=== PATIENT | female | born 1950 | race Caucasian/White ===

== ENCOUNTER → 2017-02-09 | Outpatient (CLI) | payer MEDICARE, OTHER ==
--- NOTE | 2017-02-09 15:32 | BD ---
EXAMINATION TYPE: MG DEXA axial skeleton. DATE OF EXAM: 02/09/2017 3:14 PM COMPARISON: Previous study dated 01/04/2013 CLINICAL HISTORY: SCREENING FOR OSTEOPOROSIS Height: 5'3 Weight: 168 FRAX RISK QUESTIONS: Alcohol (3 or more units per day): no Family History (Parent hip fracture): ? Glucocorticoids (More than 3mos): no (Ex: prednisone, prednisolone, methylprednisolone, dexamethasone, and hydrocortisone). History of Fracture in Adulthood: no Secondary Osteoporosis: 1. Type 1 Diabetes: no 2. Hyperthyroidism: no 3. Menopause before 45: ? 4. Malnutrition: no 5. Chronic liver disease: no Rheumatoid Arthritis: no Current Tobacco Use: no RISK FACTORS HISTORY OF: Active: Postmenopausal woman: Frequent falls: Poor Health: MEDICATIONS: Additional Medications: vitamin D, , mental health medication Additional History: osteoporosis, director case does not know pt history, hx mental illness EXAM MEASUREMENTS: Bone mineral densitometry was performed using the [employer] System. Bone mineral density as measured about the Lumbar spine is: ----- L1-L4(G/cm2): 1.455 T Score Values are as follows: ----- L2: 1.4 ----- L3: 1.5 ----- L4: 3.4 ----- L1-L4: 2.3 Bone mineral density has: Increased 5.3% since study of: 01/04/2013 Bone mineral density about the R hip (g/cm2): 0.797 Bone mineral density about the L hip (g/cm2): 0.831 T Score values are as follows: -----R Neck: -1.7 -----L Neck: -1.5 -----R Intertrochanter: -1.4 -----L Intertrochanter: -1.4 Bone mineral density has: Decreased -0.8% since study of: 01/04/2013 IMPRESSION: Osteopenia (T Score between -2.5 and -1 as noted by T score values: Ezra Hips There is slightly increased risk of fracture and the patient may be considered for treatment. Re-Screen 1-2 years. NOTE: T-SCORE=SD OF THE YOUNG ADULT MEAN.
--- NOTE | 2017-02-10 09:47 | MM ---
Reason for exam: screening (asymptomatic). Last mammogram was performed 4 years and 1 month ago. History: Patient is nulliparous. Family history of breast cancer in sister. Benign excisional biopsy of the left breast. Physical Findings: A clinical breast exam by your physician is recommended on an annual basis and results should be correlated with mammographic findings. MG Screening Mammo w CAD Bilateral CC and MLO view(s) were taken. Prior study comparison: January 04, 2013, bilateral digital screening mammo w/CAD. August 29, 2011, [facility] DIGITAL RIGHT MAMMOGRAM w/CAD. The breast tissue is heterogeneously dense. This may lower the sensitivity of mammography. Finding: There are typically benign calcifications in both breasts. No significant changes in finding since January 04, 2013 and August 29, 2011. ASSESSMENT: Benign, BI-RAD 2 RECOMMENDATION: Routine screening mammogram of both breasts in 1 year.
== END | disposition home or self-care (01) ==
LOC: RADMAMWWP 14:21
PROVIDERS: ATTEND Family Medicine
DX: Z12.31 Encounter for screening mammogram for malignant neoplasm of breast (principal); Z13.820 Encounter for screening for osteoporosis; M85.88 Other specified disorders of bone density and structure, other site
CPT/HCPCS: 77080; G0202

== ENCOUNTER 2018-06-17 11:44 | Emergency (ER) | payer MEDICARE, OTHER ==
[2018-06-17 11:51] VITALS: PULSE 67; RESP 18
[2018-06-17] MEDS ORDERED: LIDOCAINE/EPINEPHR/TETRACAINE 5 ML BOTTLE TOPICAL ONE (12:10)
[2018-06-17] MEDS ORDERED: DIPH,PERTUS(ACELL)TETVAC-LF 0.5 ML VIAL IM ONE (12:10)
--- NOTE | 2018-06-17 12:11 | ED ---
Fall HPI - General Chief Complaint: Fall Stated Complaint: Fall,Facial injury Time Seen by Provider: 06/17/18 12:06 Source: patient, EMS Mode of arrival: EMS Limitations: no limitations - History of Present Illness Initial Comments: 67-year-old female presents emergency Department with chief complaint of trip and fall. Patient tripped and fell forward struck her face. Patient has a super facial laceration to her lip. She is unsure when her last tetanus was. She denies headache, loss consciousness, neck pain, extremity injury. She states her only complaint is a laceration. Patient denies any dental injury. - Related Data Home Medications Medication Instructions Recorded Confirmed Calcium Carbonate [Calcium] 1,200 mg PO DAILY 10/06/17 06/17/18 Cholecalciferol [Vitamin D3] 5,000 unit PO DAILY 10/06/17 06/17/18 Escitalopram [Lexapro] 5 mg PO DAILY 10/06/17 06/17/18 OLANZapine [ZyPREXA] 10 mg PO HS 10/06/17 06/17/18 Atorvastatin Calcium [Lipitor] 10 mg PO DAILY 06/17/18 06/17/18 Allergies Allergy/AdvReac Type Severity Reaction Status Date / Time No Known Allergies Allergy Verified 06/17/18 13:04 Review of Systems ROS Statement: Those systems with pertinent positive or pertinent negative responses have been documented in the HPI. ROS Other: All systems not noted in ROS Statement are negative. Past Medical History Past Medical History: Unable to Obtain Additional Past Medical History / Comment(s): [facility] History of Any Multi-Drug Resistant Organisms: None Reported Past Surgical History: Unable to Obtain Past Psychological History: No Psychological Hx Reported Smoking Status: Never smoker Past Alcohol Use History: None Reported Past Drug Use History: None Reported General Exam Limitations: no limitations General appearance: alert, in no apparent distress Head exam: Present: atraumatic, normocephalic, normal inspection Eye exam: Present: normal appearance, PERRL, EOMI. Absent: scleral icterus, conjunctival injection, periorbital swelling ENT exam: Present: mucous membranes moist, TM's normal bilaterally, normal external ear exam. Absent: normal oropharynx (Superficial laceration on the upper lip) Neck exam: Present: normal inspection, full ROM. Absent: tenderness, meningismus, lymphadenopathy Respiratory exam: Present: normal lung sounds bilaterally. Absent: respiratory distress, wheezes, rales, rhonchi, stridor Cardiovascular Exam: Present: regular rate, normal rhythm, normal heart sounds. Absent: systolic murmur, diastolic murmur, rubs, gallop, clicks Neurological exam: Present: alert, oriented X3, CN II-XII intact, reflexes normal. Absent: motor sensory deficit Skin exam: Present: warm, dry, intact, normal color. Absent: rash Course Vital Signs 06/17/18 11:48 Temperature 97.9 F Pulse Rate 67 Respiratory 18 Rate Blood Pressure 135/70 O2 Sat by Pulse 97 Oximetry Medical Decision Making - Medical Decision Making 67-year-old female presented for a trip and fall. Patient has superficial laceration does not need to be closer is no active bleeding she has CT of her head and neck which are negative for acute findings. Patient's tetanus is updated return parameters were discussed. Disposition Clinical Impression: Fall, Superficial laceration of face Disposition: HOME SELF-CARE Condition: Stable Instructions: Laceration (ED) Additional Instructions: Please return to the Emergency Department if symptoms worsen or any other concerns. Is patient prescribed a controlled substance at d/c from ED?: No Referrals: None,Stated [Primary Care Provider] - 1-2 days Time of Disposition: 13:38
--- NOTE | 2018-06-17 13:25 | CT ---
EXAMINATION TYPE: CT brain jr brower DATE OF EXAM: 06/17/2018 COMPARISON: None HISTORY: 67-year-old female with pain after Fall, cut under nose CT DLP: 1608 mGycm Automated exposure control for dose reduction was used. Technique: Examination of the head was done in axial plane without intravenous contrast. Coronal and sagittal reconstructions performed. CT of the cervical spine was obtained in axial plane without intravenous injection of contrast mater ial. Coronal and sagittal reformatted images were obtained from the axial views for evaluation of f ractures, spinal alignment and canal. FINDINGS: Head: There is no evidence of acute intracranial hemorrhage, acute ischemic changes, mass, mass-effect, or extra-axial fluid collection. There is no effacement of cerebral sulci or basal subarachnoid cister ns. There is no hydrocephalus. There is no midline shift. Lobo-white matter distinction is preserv ed. Either 3.6 cm wide arachnoid cyst posterior cranial fossa or megacisterna magna. Paranasal sinuses and mastoid air cells well pneumatized. No calvarial fracture. Cervical spine: No craniocervical junction anomaly, predental space widening, or prevertebral soft tissue swelling. No acute fracture of the cervical spine. Alignment is maintained. Moderate distention plate degenerative changes especially from C4 through C7 levels Multilevel facet and uncovertebral joint arthropathy is present. Moderate right-sided neural foramina l stenosis at C4-C5 and moderate on the left at C6-C7. Motion artifact affecting the soft tissues of the neck. Sagittal and coronal reformatted images confirm above findings. COMBINED IMPRESSION: 1. No acute intracranial abnormality seen. 2. No acute fracture or malalignment of the cervical spine. Moderate multilevel spondylotic change.
[2018-06-17 14:39] VITALS: BP 162/75; TEMP 98.2
== END 2018-06-17 14:39 | disposition home or self-care (01) ==
LOC: EC 11:44
DX: S01.511A Laceration without foreign body of lip, initial encounter (principal); Z79.899 Other long term (current) drug therapy; Z23 Encounter for immunization; W01.0XXA Fall on same level from slipping, tripping and stumbling without subsequent striking against object, initial encounter; Y92.009 Unspecified place in unspecified non-institutional (private) residence as the place of occurrence of the external cause
CPT/HCPCS: 70450; 72125; 90471; 90715; 99284

== ENCOUNTER 2022-03-31 09:56 | Inpatient (IN) | payer MEDICARE, OTHER ==
--- NOTE | 2022-03-31 10:56 | ED ---
Fall HPI - General Source: family, EMS, RN notes reviewed Mode of arrival: EMS - History of Present Illness MD Complaint: fall When Fall Occurred: unsure Fall Witnessed: no <Cammie Jaime - Last Filed: 03/31/22 18:17> <Philip Gomez - Last Filed: 03/31/22 20:26> - General Chief Complaint: Fall Stated Complaint: Fall Time Seen by Provider: 03/31/22 10:28 - History of Present Illness Initial Comments: This is a 71-year-old female who presents to the emergency department for a fall. Her daughter had not heard from her for 2-3 days, and requested the director social welfare to a wellness check. The director social welfare and her supervisor billposting went to the patient's apartment, and she was found lying on her side. She is unsure how she had gotten there or if she had fallen. She was breathing and conscious when she was found on the floor. It is unclear if she had any loss of consciousness immediately after the event. Patient not currently complaining of any pain, however she is noted be a poor communicator. Patient was noted to be covered in urine and feces upon arrival. (Cammie Jaime) - Related Data Home Medications Medication Instructions Recorded Confirmed Calcium Carbonate [Calcium] 600 mg PO DAILY 10/06/17 03/31/22 Escitalopram [Lexapro] 5 mg PO HS 10/06/17 03/31/22 Atorvastatin Calcium [Lipitor] 10 mg PO DAILY 06/17/18 03/31/22 Cholecalciferol [Vitamin D3 (125 125 mcg PO DAILY 03/31/22 03/31/22 Mcg = 5000 Iu)] Docusate [Colace] 100 mg PO DAILY 03/31/22 03/31/22 OLANZapine 20 mg PO HS 03/31/22 03/31/22 Polyethylene Glycol 3350 [Miralax] 17 gm PO DAILY PRN 03/31/22 03/31/22 Allergies Allergy/AdvReac Type Severity Reaction Status Date / Time No Known Allergies Allergy Verified 03/31/22 13:42 Review of Systems ROS Other: All systems not noted in ROS Statement are negative. Limitations: ROS unobtainable due to patients medical condition <Cammie Jaime - Last Filed: 03/31/22 18:17> ROS Other: All systems not noted in ROS Statement are negative. <Philip Gomez - Last Filed: 03/31/22 20:26> ROS Statement: Those systems with pertinent positive or pertinent negative responses have been documented in the HPI. Past Medical History Past Medical History: Unable to Obtain Additional Past Medical History / Comment(s): [facility] History of Any Multi-Drug Resistant Organisms: None Reported Past Surgical History: Unable to Obtain Past Psychological History: No Psychological Hx Reported Smoking Status: Never smoker Past Alcohol Use History: None Reported Past Drug Use History: None Reported - Past Family History Mother Family Medical History: No Reported History Additional Family Medical History / Comment(s): Mother was healthy Father Additional Family Medical History / Comment(s): Heart issues. <Cammie Jaime - Last Filed: 03/31/22 18:17> General Exam Limitations: no limitations General appearance: alert Respiratory exam: Present: normal lung sounds bilaterally. Absent: respiratory distress, wheezes, rales, rhonchi, stridor Cardiovascular Exam: Present: regular rate, normal rhythm, normal heart sounds. Absent: systolic murmur, diastolic murmur, rubs, gallop, clicks GI/Abdominal exam: Present: soft, normal bowel sounds. Absent: distended, tenderness, guarding, rebound, rigid External exam: Present: other (damp erythematous rash with a foul odor in the intertriginous folds consistent with a tinea cruris. ) Neurological exam: Present: alert Skin exam: Present: other (Ecchymosis to the lateral aspect of the left thigh, the right shoulder, and the forehead. Abrasion to the right rastafari and stool in the nose and mouth.) <Cammie Jaime - Last Filed: 03/31/22 18:17> Course Vital Signs 03/31/22 03/31/22 03/31/22 10:22 10:26 19:03 Temperature 98.0 F 98.4 F Pulse Rate 94 Pulse Rate [ 94 83 Payroll Examiner ] Respiratory 16 20 Rate Blood Pressure 108/71 Blood Pressure 113/59 [Right Arm] O2 Sat by Pulse 98 98 Oximetry 03/31/22 20:00 Temperature 98.2 F Pulse Rate Pulse Rate [ 84 Payroll Examiner ] Respiratory 20 Rate Blood Pressure Blood Pressure 117/60 [Right Arm] O2 Sat by Pulse 99 Oximetry Medical Decision Making - Lab Data Result diagrams: 03/31/22 11:13 03/31/22 11:13 - Radiology Data Radiology results: report reviewed, image reviewed <Cammie Jaime - Last Filed: 03/31/22 18:17> - Lab Data Result diagrams: 03/31/22 11:13 03/31/22 11:13 <Philip Gomez - Last Filed: 03/31/22 20:26> - Medical Decision Making This is a 71-year-old female who presents to the emergency department after sustaining a fall. It is unclear why exactly the patient fell and why she could not get back up. Will obtain imaging and lab work for further evaluation. Tinea cruris present upon examination, this is likely due to the patient urinating on herself while she was down for a prolonged period of time. With the help of the patient's nurse, the patient was thoroughly wiped down, examined, and cleaned. Antifungal cream was applied to the tinea cruris. Chest x-ray does reveal possible pneumonia, patient started on Rocephin and Azithromycin. Elevated liver enzymes also noted, ultrasound of the right upper quadrant ordered. This was a very suboptimal study, but did suggest a hepatocellular disease/fatty infiltration of the liver. Additionally, troponin was elevated at 3.820. I discussed this finding with Dr. Gomez, who believes that this is a type II elevation. I spoke with cardiology, who requested the patient be started on heparin. Additionally, the patient's CK returned at 22,825 indicating rhabdomyolysis. Patient started on fluids. Patient will be admitted for multiple issues, including the pneumonia, rhabdomyolysis, and elevated troponin. This case was discussed in detail with the attending ED physician. Presentation, findings, and treatment plan discussed in detail as well. (Cammie Jaime) - Lab Data Lab Results 03/31/22 03/31/22 03/31/22 Range/Units 11:13 11:13 11:13 WBC 14.3 H (3.8-10.6) k/uL RBC 5.06 (3.80-5.40) m/uL Hgb 14.4 (11.4-16.0) gm/dL Hct 44.8 (34.0-46.0) % MCV 88.4 (80.0-100.0) fL MCH 28.4 (25.0-35.0) pg MCHC 32.1 (31.0-37.0) g/dL RDW 14.1 (11.5-15.5) % Plt Count 224 (150-450) k/uL MPV 8.0 Neutrophils % 84 % Lymphocytes % 9 % Monocytes % 5 % Eosinophils % 1 % Basophils % 0 % Neutrophils # 12.1 H (1.3-7.7) k/uL Lymphocytes # 1.2 (1.0-4.8) k/uL Monocytes # 0.8 (0-1.0) k/uL Eosinophils # 0.1 (0-0.7) k/uL Basophils # 0.1 (0-0.2) k/uL Sodium 146 H (137-145) mmol/L Potassium 3.9 (3.5-5.1) mmol/L Chloride 113 H (98-107) mmol/L Carbon Dioxide 26 (22-30) mmol/L Anion Gap 7 mmol/L BUN 29 H (7-17) mg/dL Creatinine 0.99 (0.52-1.04) mg/dL Est GFR (CKD-EPI)AfAm 66 (>60 ml/min/1.73 sqM) Est GFR (CKD-EPI)NonAf 57 (>60 ml/min/1.73 sqM) Glucose 110 H (74-99) mg/dL Calcium 9.4 (8.4-10.2) mg/dL Total Bilirubin 1.0 (0.2-1.3) mg/dL AST 644 H (14-36) U/L ALT 185 H (4-34) U/L Alkaline Phosphatase 108 (38-126) U/L Creatine Kinase (30-135) U/L Troponin I (0.000-0.034) ng/mL Total Protein 7.1 (6.3-8.2) g/dL Albumin 4.0 (3.5-5.0) g/dL Urine Color Red Urine Appearance Cloudy H (Clear) Urine pH 6.0 (5.0-8.0) Ur Specific [place] 1.029 (1.001-1.035) Urine Protein 2+ H (Negative) Urine Glucose (UA) Trace H (Negative) Urine Ketones 1+ H (Negative) Urine Blood Large H (Negative) Urine Nitrite Negative (Negative) Urine Bilirubin Negative (Negative) Urine Urobilinogen <2.0 (<2.0) mg/dL Ur Leukocyte Esterase Negative (Negative) Urine RBC 1 (0-5) /hpf Urine WBC 4 (0-5) /hpf Ur Squamous Epith Cells 1 (0-4) /hpf Urine Bacteria Rare H (None) /hpf Urine Mucus Many H (None) /hpf Coronavirus (PCR) (Not Detectd) Influenza Type A RNA (Not Detectd) Influenza Type B (PCR) (Not Detectd) 03/31/22 03/31/22 03/31/22 Range/Units 11:13 11:13 13:25 WBC (3.8-10.6) k/uL RBC (3.80-5.40) m/uL Hgb (11.4-16.0) gm/dL Hct (34.0-46.0) % MCV (80.0-100.0) fL MCH (25.0-35.0) pg MCHC (31.0-37.0) g/dL RDW (11.5-15.5) % Plt Count (150-450) k/uL MPV Neutrophils % % Lymphocytes % % Monocytes % % Eosinophils % % Basophils % % Neutrophils # (1.3-7.7) k/uL Lymphocytes # (1.0-4.8) k/uL Monocytes # (0-1.0) k/uL Eosinophils # (0-0.7) k/uL Basophils # (0-0.2) k/uL Sodium (137-145) mmol/L Potassium (3.5-5.1) mmol/L Chloride (98-107) mmol/L Carbon Dioxide (22-30) mmol/L Anion Gap mmol/L BUN (7-17) mg/dL Creatinine (0.52-1.04) mg/dL Est GFR (CKD-EPI)AfAm (>60 ml/min/1.73 sqM) Est GFR (CKD-EPI)NonAf (>60 ml/min/1.73 sqM) Glucose (74-99) mg/dL Calcium (8.4-10.2) mg/dL Total Bilirubin (0.2-1.3) mg/dL AST (14-36) U/L ALT (4-34) U/L Alkaline Phosphatase (38-126) U/L Creatine Kinase 03880 H* (30-135) U/L Troponin I 3.820 H* (0.000-0.034) ng/mL Total Protein (6.3-8.2) g/dL Albumin (3.5-5.0) g/dL Urine Color Urine Appearance (Clear) Urine pH (5.0-8.0) Ur Specific [place] (1.001-1.035) Urine Protein (Negative) Urine Glucose (UA) (Negative) Urine Ketones (Negative) Urine Blood (Negative) Urine Nitrite (Negative) Urine Bilirubin (Negative) Urine Urobilinogen (<2.0) mg/dL Ur Leukocyte Esterase (Negative) Urine RBC (0-5) /hpf Urine WBC (0-5) /hpf Ur Squamous Epith Cells (0-4) /hpf Urine Bacteria (None) /hpf Urine Mucus (None) /hpf Coronavirus (PCR) (Not Detectd) Influenza Type A RNA Not Detected (Not Detectd) Influenza Type B (PCR) Not Detected (Not Detectd) 03/31/22 Range/Units 13:25 WBC (3.8-10.6) k/uL RBC (3.80-5.40) m/uL Hgb (11.4-16.0) gm/dL Hct (34.0-46.0) % MCV (80.0-100.0) fL MCH (25.0-35.0) pg MCHC (31.0-37.0) g/dL RDW (11.5-15.5) % Plt Count (150-450) k/uL MPV Neutrophils % % Lymphocytes % % Monocytes % % Eosinophils % % Basophils % % Neutrophils # (1.3-7.7) k/uL Lymphocytes # (1.0-4.8) k/uL Monocytes # (0-1.0) k/uL Eosinophils # (0-0.7) k/uL Basophils # (0-0.2) k/uL Sodium (137-145) mmol/L Potassium (3.5-5.1) mmol/L Chloride (98-107) mmol/L Carbon Dioxide (22-30) mmol/L Anion Gap mmol/L BUN (7-17) mg/dL Creatinine (0.52-1.04) mg/dL Est GFR (CKD-EPI)AfAm (>60 ml/min/1.73 sqM) Est GFR (CKD-EPI)NonAf (>60 ml/min/1.73 sqM) Glucose (74-99) mg/dL Calcium (8.4-10.2) mg/dL Total Bilirubin (0.2-1.3) mg/dL AST (14-36) U/L ALT (4-34) U/L Alkaline Phosphatase (38-126) U/L Creatine Kinase (30-135) U/L Troponin I (0.000-0.034) ng/mL Total Protein (6.3-8.2) g/dL Albumin (3.5-5.0) g/dL Urine Color Urine Appearance (Clear) Urine pH (5.0-8.0) Ur Specific [place] (1.001-1.035) Urine Protein (Negative) Urine Glucose (UA) (Negative) Urine Ketones (Negative) Urine Blood (Negative) Urine Nitrite (Negative) Urine Bilirubin (Negative) Urine Urobilinogen (<2.0) mg/dL Ur Leukocyte Esterase (Negative) Urine RBC (0-5) /hpf Urine WBC (0-5) /hpf Ur Squamous Epith Cells (0-4) /hpf Urine Bacteria (None) /hpf Urine Mucus (None) /hpf Coronavirus (PCR) Not Detected (Not Detectd) Influenza Type A RNA (Not Detectd) Influenza Type B (PCR) (Not Detectd) - EKG Data EKG Comments: Normal sinus rhythm. Left axis deviation. Ventricular rate 86 bpm, ND interval 137 ms, QRS duration 105 ms, QTC 448 ms. (Cammie Jaime) Disposition <Cammie Jaime - Last Filed: 03/31/22 18:17> <Philip Gomez - Last Filed: 03/31/22 20:26> Clinical Impression: Pneumonia, Elevated troponin, Elevated liver enzymes, Rhabdomyolysis Disposition: ADMITTED IP TO THIS HOSP
[2022-03-31 11:32] LABS: Basophils # (A) 0.1 k/uL (0-0.2); Basophils % (A) 0 %; Eosinophils # (A) 0.1 k/uL (0-0.7); Eosinophils % (A) 1 %; HCT 44.8 % (34.0-46.0); HGB 14.4 gm/dL (11.4-16.0); Lymphocytes # (A) 1.2 k/uL (1.0-4.8); Lymphocytes % (A) 9 %; MCH 28.4 pg (25.0-35.0); MCHC 32.1 g/dL (31.0-37.0); MCV 88.4 fL (80.0-100.0); Monocytes # (A) 0.8 k/uL (0-1.0); Monocytes % (A) 5 %; Neutrophils # (A) 12.1 k/uL (1.3-7.7); Neutrophils % (A) 84 %; Platelet Count 224 k/uL (150-450); RBC 5.06 m/uL (3.80-5.40); RDW 14.1 % (11.5-15.5); WBC 14.3 k/uL (3.8-10.6)
[2022-03-31 11:49] LABS: Calcium 9.4 mg/dL (8.4-10.2); Potassium 3.9 mmol/L (3.5-5.1); Total Protein 7.1 g/dL (6.3-8.2)
--- NOTE | 2022-03-31 12:08 | XR ---
EXAMINATION TYPE: XR chest 2V DATE OF EXAM: 03/31/2022 COMPARISON: NONE TECHNIQUE: PA and lateral views submitted. HISTORY: Pain FINDINGS: There is left-sided consolidation. Heart size prominent. Eventration right hemidiaphragm. Chronic juana earing right clavicular fracture with bilateral arthropathy of the shoulders. No pneumothorax. Degene rative change of the spine. IMPRESSION: 1. Left perihilar and lower lobe subsegmental atelectasis or infiltrate.
--- NOTE | 2022-03-31 12:10 | XR ---
EXAMINATION TYPE: XR Hip Bilateral and AP pelvis DATE OF EXAM: 03/31/2022 COMPARISON: NONE HISTORY: Pain TECHNIQUE: A single AP view of the pelvis is obtained. Two views of the right hip are obtained. FINDINGS: There is no acute fracture/dislocation evident in the pelvis. Joint space is fairly well p reserved. Retained fecal debris throughout the colon. No evidence of acute fracture of the hips. IMPRESSION: 1. No definite acute fracture.
--- NOTE | 2022-03-31 12:14 | XR ---
EXAMINATION TYPE: XR shoulder complete BILAT DATE OF EXAM: 03/31/2022 COMPARISON: NONE HISTORY: 71-year-old female pain after fall TECHNIQUE: 3 views each side FINDINGS: Moderate degenerative change right AC joint and mild at the left AC joint. Mild to moderate degenerative change left glenohumeral joint and mild at the right glenohumeral joint . There is bony irregularity at both greater tuberosities compatible with chronic rotator cuff tendinop athy. Somewhat narrowed appearance to the subacromial space on the AP internal rotation view. Unable to exclude underlying rotator cuff tear on the right. Otherwise, no fracture, subluxation, dislocation. Possible old fracture deformity right clavicular shaft. Clinically correlate. There is some patchy opacity seen throughout the visualized left hemithorax. IMPRESSION: 1. 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 2. Moderate right and mild left AC joint OA. 3. Bony irregularity suggesting bilateral chronic rotator cuff tendinopathy. However, there is a some what narrowed subacromial space on the right. Unable to exclude underlying rotator cuff tear here. 4. Possible old fracture deformity right clavicular shaft. Clinically correlate. 5. Patchy opacity throughout the left hemithorax. Correlate to exclude underlying airspace disease in cluding the possibility of pneumonia. Follow-up recommended to ensure clearance.
--- NOTE | 2022-03-31 12:37 | CT ---
EXAMINATION TYPE: CT brain cspine wo con DATE OF EXAM: 03/31/2022 COMPARISON: Prior CT trauma June 17, 2018. HISTORY: Fall. Injury with headache and neck pain CT DLP: 1510.4 mGycm. Automated Exposure Control for Dose Reduction was Utilized. TECHNIQUE: CT scan of the head and cervical spine are performed without contrast. FINDINGS: There is no acute intracranial hemorrhage, mass effect, or midline shift identified. The ventricles and sulci are within normal limits in size for patient's age. Persistent moderate areas o f low attenuation throughout the deep and periventricular white matter. Lesions are nonspecific in ap pearance and distribution favor product of chronic small vessel ischemic change inpatient of this age . The calvarium is intact. The globes are intact and the visualized sinuses are clear. Prominent CSF central inferior posterior fossa could reflect arachnoid cyst or magna cisterna magna axial image 10 is unchanged from prior. Cervical spine is visualized in its entirety from C1 through upper thoracic levels and demonstrates s table and satisfactory alignment without evidence of acute fracture or dislocation. Prevertebral sof t tissue appears within normal limits. The C1-C2 articulation is within normal limits. Vertebral bod y heights are maintained. Moderate multilevel disc space narrowing redemonstrated. Moderate to severe anterior spurring in the mid to lower cervical spine is redemonstrated. Posterior spur disc complexe s efface the anterior thecal sac at C4-C5 through C6-C7 levels similar to prior. Axial images show so me multilevel marginal spurring contributing to some multilevel neural foraminal narrowing. Thyroid g land is within normal limits in size. There are groundglass opacities and organizing consolidations a nd visualized portion of the left upper lobe new from prior. 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 IMPRESSION: 1. There is no acute fracture or dislocation evident in the cervical spine. 2. No acute intracranial hemorrhage or midline shift is seen. 3. New left upper lobe groundglass opacity and organizing consolidations could reflect infectious mario ology, correlate clinically. Alveolar hemorrhage would be in the differential in patient with trauma. Findings correlate with x-ray performed earlier today.
[2022-03-31] MEDS ORDERED: SODIUM CHLORIDE 0.9% 1,000 ML IV ONE ×2 (12:39→14:52)
[2022-03-31] MEDS ORDERED: AZITHROMYCIN 500 MG in SODIUM CHLORIDE 0.9% 250 ML IVPB STA (12:42)
[2022-03-31] MEDS ORDERED: NALOXONE 0.4 MG/ML 1 ML VIAL IV PRN (13:14)
[2022-03-31] MEDS ORDERED: HYDROcodone/APAP 5-325MG 1 EACH TAB PO PRN (13:14)
[2022-03-31] MEDS ORDERED: oxyCODONE-APAP 5-325MG 1 EACH TAB PO PRN (13:14)
[2022-03-31] MEDS ORDERED: METOCLOPRAMIDE 5 MG/ML 2 ML VIAL IVP PRN (13:18)
--- NOTE | 2022-03-31 13:31 | US ---
EXAMINATION TYPE: US gallbladder DATE OF EXAM: 03/31/2022 COMPARISON: NONE CLINICAL HISTORY: elevated liver enzymes. Elevated liver enzymes. EXAM MEASUREMENTS: Liver Length: 14.4 cm CBD: Obscured by gas. Right Kidney: 10.7 x 4.9 x 4.5 cm Very difficult and limited exam due to gas. Pancreas: Limited. Liver: Limited. Appears coarse in echotexture. Gallbladder: Obscured by gas, not seen. Evidence for sonographic Amado's sign: No CBD: Obscured. Right Kidney: Limited. No abnormalities seen at this time. Visualized pancreas slightly heterogeneous in appearance without mass or ductal dilatation. Portions are obscured by overlying bowel gas on images obtained. Visualized liver is heterogeneously hyperecho ic. Evaluation for focal masses suboptimal due to the heterogeneity. No adjacent ascites. No right-si ded hydronephrosis. Gallbladder not distinctly identified at the temo hepatis. Suboptimal visualizat ion of common bile duct also noted. IMPRESSION: Markedly suboptimal study. Suspect underlying hepatocellular disease and/or diffuse fatty infiltration. Consider further workup with CT or MRI of the abdomen to better evaluate.
[2022-03-31] MEDS ORDERED: ASPIRIN 325 MG TAB PO STA (13:51)
[2022-03-31] MEDS ORDERED: HEPARIN SODIUM 1,000 UN/ML (10ML VL) IV PRN (14:52)
[2022-03-31] MEDS ORDERED: HEPARIN SODIUM 1,000 UN/ML (10ML VL) IV ONE (14:52)
[2022-03-31] MEDS: HEPARIN SOD,PORK IN 0.45% NACL 25,000 UNIT in 0.45% NACL 1 250ML.BAG IV SCH (15:35)
[2022-03-31] MEDS ORDERED: polyethylene glycoL 3350 17 GM POWD.PACK PO PRN (15:44)
[2022-03-31 15:49] LABS: Prothrombin Time 10.5 sec (9.0-12.0)
--- NOTE | 2022-03-31 15:56 | P.HPIM ---
History of Present Illness H&P Date: 03/31/22 Chief Complaint: Found down 71-year-old woman with medical history of mood disorder, hyperlipidemia presented after being found down. Patient was corresponding to her family's phone calls, and therefore had a wellness check in which she was found down. Last contact with her was 48-72 hours ago, so estimation is that she's been down for at least 2-3 days. Patient does not provide meaningful history, therefore, history is taken from ER provider signout as well as chart review. Patient complains of some pain on her left side, multiple areas of bruising. Otherwise denies fevers, chills, nausea, vomiting, chest pain, palpitations, syncope, presyncope, cough, dyspnea, abdominal pain, constipation, diarrhea, dysuria, dyschezia, numbness/weakness of extremities. In the emergency room, patient is afebrile, 108/71, heart rate 94, 98% on room air. CBC is markable for leukocytosis to 14.3. Chemistries are remarkable for sodium of 146, chloride 113, BUN of 29. LFTs are remarkable for elevated AST/ALT of 644/185. Creatinine kinase is 22,825. Initial troponin was 3.8. Covid was negative. Influenza A/B were negative. Patient's chest x-ray appears to have a left perihilar and lower lobe subsegmental atelectasis or infiltrate. Patient's hip and pelvis x-rays are negative for fracture. Patient's shoulder x-ray shows osteoarthritis as well as chronic rotator cuff tendinopathy, but nothing acute. CT of the C-spine shows no acute fracture or dislocation, no acute intracranial hemorrhage. Patient's gallbladder ultrasound was a markedly suboptimal study but shows possible evidence of underlying hepatocellular disease. EKG demonstrates normal sinus rhythm with left axis deviation and S1 Q3 T3 pattern with no evidence of ischemia. All Systems reviewed and pertinent positives and negatives noted in HPI, all other symptoms are negative Gen: awake, alert HEENT: normocephalic, atraumatic, good hearing acuity, moist mucous membranes Resp: good air exchange, breathing comfortably with no accessory muscle use CVS: good distal perfusion x 4, regular rate and rhythm without murmurs GI: soft, NTTP, ND : no SPT, no CVAT, grayson catheter is present MSK: no pitting edema, no clubbing, multiple areas of bruising Neuro: non-focal, moving all extremities Psych: cooperative, euthymic mood Labs and imaging as above Assessment/plan: Rhabdomyolysis Elevated liver enzymes -Admit inpatient, telemetry -Daily CK -IV fluids -PT consult -Repeat hepatic function panel in the morning Aspiration pneumonia -Unasyn -Sputum culture Elevated troponin -Patient was started on a heparin drip in the emergency room, however, I suspect that troponin elevation is related to rhabdomyolysis rather than acute IL -Echocardiogram -Cardiology consult Mood disorder Hyperlipidemia -Home medications reviewed and reconciled Patient is DO NOT RESUSCITATE/DO NOT INTUBATE DVT prophylaxis covered with therapeutic heparin Past Medical History Past Medical History: Unable to Obtain Additional Past Medical History / Comment(s): [facility] History of Any Multi-Drug Resistant Organisms: None Reported Past Surgical History: Unable to Obtain Past Psychological History: No Psychological Hx Reported Smoking Status: Never smoker Past Alcohol Use History: None Reported Past Drug Use History: None Reported Medications and Allergies Home Medications Medication Instructions Recorded Confirmed Type Calcium Carbonate [Calcium] 600 mg PO DAILY 10/06/17 03/31/22 History Escitalopram [Lexapro] 5 mg PO HS 10/06/17 03/31/22 History Atorvastatin Calcium [Lipitor] 10 mg PO DAILY 06/17/18 03/31/22 History Cholecalciferol [Vitamin D3 (125 125 mcg PO DAILY 03/31/22 03/31/22 History Mcg = 5000 Iu)] Docusate [Colace] 100 mg PO DAILY 03/31/22 03/31/22 History Polyethylene Glycol 3350 [Miralax] 17 gm PO DAILY PRN 03/31/22 03/31/22 History RX: OLANZapine 20 mg PO HS 03/31/22 03/31/22 History Allergies Allergy/AdvReac Type Severity Reaction Status Date / Time No Known Allergies Allergy Verified 03/31/22 13:42 Physical Exam Osteopathic Statement: *. No significant issues noted on an osteopathic structural exam other than those noted in the History and Physical/Consult. Vitals: Vital Signs Temp Pulse Pulse Resp BP Pulse Ox 03/31/22 10:26 94 03/31/22 10:22 98.0 F 94 16 108/71 98 Intake and Output 03/31/22 03/31/22 03/31/22 06:59 14:59 22:59 Other: Weight 83.915 kg Results CBC & Chem 7: 03/31/22 11:13 03/31/22 11:13 Labs: Abnormal Lab Results - Last 24 Hours (Table) 03/31/22 03/31/22 03/31/22 Range/Units 11:13 11:13 11:13 WBC 14.3 H (3.8-10.6) k/uL Neutrophils # 12.1 H (1.3-7.7) k/uL Sodium 146 H (137-145) mmol/L Chloride 113 H (98-107) mmol/L BUN 29 H (7-17) mg/dL Glucose 110 H (74-99) mg/dL AST 644 H (14-36) U/L ALT 185 H (4-34) U/L Creatine Kinase (30-135) U/L Troponin I 3.820 H* (0.000-0.034) ng/mL 03/31/22 Range/Units 11:13 WBC (3.8-10.6) k/uL Neutrophils # (1.3-7.7) k/uL Sodium (137-145) mmol/L Chloride (98-107) mmol/L BUN (7-17) mg/dL Glucose (74-99) mg/dL AST (14-36) U/L ALT (4-34) U/L Creatine Kinase 01428 H* (30-135) U/L Troponin I (0.000-0.034) ng/mL Microbiology - Last 24 Hours (Table) 03/31/22 11:13 Fungal Culture - Preliminary Groin
[2022-03-31 16:54] LABS: Partial Thromboplastin Time 18.2 sec (22.0-30.0)
[2022-03-31 18:17] LABS: Appearance,Urine Cloudy (Clear); Bacteria,Urine Rare /hpf; Bilirubin,Urine Negative (Negative); Blood,Urine Large (Negative); Color,Urine Red; Glucose,Urine (UA) Trace (Negative); Ketones,Urine 1+ (Negative); Leukocyte Esterase,Urine Negative (Negative); Mucus,Urine Many /hpf; Nitrite,Urine Negative (Negative); Protein,Urine 2+ (Negative); RBC,Urine 1 /hpf (0-5); Specific Gravity,Urine 1.029 (1.001-1.035); Squamous Epithelial Cell,Urine 1 /hpf (0-4); Urobilinogen,Urine <2.0 mg/dL (<2.0); WBC,Urine 4 /hpf (0-5)
[2022-03-31] MEDS: SODIUM CHLORIDE 0.9% 1,000 ML IV SCH (20:00)
[2022-03-31] MEDS: AMPICILLIN-SULBACTAM 3 GM in SODIUM CHLORIDE 0.9% 100 ML IVPB SCH ×2 (20:18→21:52)
[2022-03-31] MEDS: OLANZapine 10 MG TAB PO SCH (21:29)
[2022-03-31] MEDS: ESCITALOPRAM 5 MG TAB PO SCH (21:29)
[2022-04-01] MEDS: AMPICILLIN-SULBACTAM 3 GM in SODIUM CHLORIDE 0.9% 100 ML IVPB SCH ×5 (01:19→17:20)
[2022-04-01] MEDS: SODIUM CHLORIDE 0.9% 1,000 ML IV SCH ×4 (02:53→17:24)
[2022-04-01] MEDS: CALCIUM CARBONATE 500 MG CHEWABLE PO SCH (07:33)
[2022-04-01] MEDS: CHOLECALCIFEROL 125 MCG (5000 IU) TABLET PO SCH (07:33)
[2022-04-01] MEDS: DOCUSATE 100 MG CAP PO SCH (07:33)
[2022-04-01 10:39] LABS: Basophils # (A) 0.1 k/uL (0-0.2); Basophils % (A) 1 %; Eosinophils # (A) 0.1 k/uL (0-0.7); Eosinophils % (A) 1 %; HCT 40.5 % (34.0-46.0); HGB 12.6 gm/dL (11.4-16.0); Lymphocytes # (A) 1.1 k/uL (1.0-4.8); Lymphocytes % (A) 12 %; MCH 27.8 pg (25.0-35.0); MCV 89.5 fL (80.0-100.0); Monocytes # (A) 0.6 k/uL (0-1.0); Monocytes % (A) 6 %; Neutrophils # (A) 7.4 k/uL (1.3-7.7); Neutrophils % (A) 79 %; Platelet Count 193 k/uL (150-450); RBC 4.53 m/uL (3.80-5.40); WBC 9.4 k/uL (3.8-10.6)
[2022-04-01 11:22] LABS: ALT 134 U/L (4-34); AST 336 U/L (14-36); African American GFR (CKD) >90 (>60 ml/min/1.73 sqM); Albumin 2.9 g/dL (3.5-5.0); Alkaline Phosphatase 79 U/L (38-126); Anion Gap 6 mmol/L; Bilirubin, Delta 0.1 mg/dL (0.0-0.2); Bilirubin,Unconjugated 0.5 mg/dL (0.0-1.1); Blood Urea Nitrogen 19 mg/dL (7-17); Calcium 7.8 mg/dL (8.4-10.2); Carbon Dioxide 20 mmol/L (22-30); Chloride 116 mmol/L (98-107); Glucose 116 mg/dL (74-99); Magnesium 2.1 mg/dL (1.6-2.3); Non-African American GFR(CKD) 88 (>60 ml/min/1.73 sqM); Potassium 3.3 mmol/L (3.5-5.1); Sodium 142 mmol/L (137-145); Total Bilirubin 0.6 mg/dL (0.2-1.3); Total Protein 5.6 g/dL (6.3-8.2)
--- NOTE | 2022-04-01 11:41 | P.CRDCN ---
History of Present Illness History of present illness: HISTORY OF PRESENT ILLNESS: This is a 71-year-old female with a past medical history significant for mood disorder and hyperlipidemia. Patient does not follow with a religion instructor. We have been asked to see the patient in consultation for abnormal troponins. Patient examined at the bedside. Patient is a poor historian and is unable to provide much HPI. Apparently, the patients family had requested a wellness check after not being able to get in contact with the patient for the past 2-3 days. The patient was found found on the floor. The patient was estimated to be laying on the floor for 2-3 days. The patient was conscious when she was found. Apparently the patient was also found to be covered in urine and feces. Initially when talking to the patient she stated she had been having chest pain for the past week. However when the patient was asked again if she was having chest pain, she stated that she was not having chest pain and did not have any chest pain in the past. She denies having any shortness of breath. Denies dizziness or lightheadedness. The patient was found to have rhabdomyolysis and also elevated troponins. She was started on IV heparin. * EKG reveals sinus mechanism with no signs of acute ischemia. Left axis deviation. * Chest xray left perihilar and lower lobe subsegmental atelectasis or infiltrate * Laboratory data: WBC 9.4. Hemoglobin 12.6. Platelet count 193. Sodium 146. Potassium 3.9. BUN 29. Creatinine 0.99. Lactic acid 0.8. Creatinine kinase 22,825. Troponin 3.820. 2.820. 2.670. * Current home cardiac medications include Lipitor 10 mg daily REVIEW OF SYSTEMS: At the time of my exam: Unable to obtain thorough review of systems secondary to altered mental status PHYSICAL EXAM: VITAL SIGNS: Reviewed. GENERAL: Well-developed in no acute distress. HEENT: Bruising noted to right side of face. Head is normocephalic. Pupils are equal, round. Sclerae anicteric. Mucous membranes of the mouth are moist. Neck supple. No JVD or thyromegaly LUNGS: Respirations even and unlabored. Lungs essentially clear to auscultation bilaterally. HEART: Regular rate and rhythm. S1 and S2 heard. ABDOMEN: Soft. Nondistended. Nontender. EXTREMITIES: Normal range of motion. No clubbing or cyanosis. Peripheral pulses intact. No lower extremity edema NEUROLOGIC: Awake and alert. Oriented x 1. ASSESSMENT: Rhabdomyolysis, patient found laying down for 2-3 days Aspiration pneumonia Abnormal troponins, suspect secondary to rhabdomyolysis Transaminitis Mood disorder Hyperlipidemia PLAN: Obtain 2D echo to assess cardiac structure and function Troponin elevation may be secondary to rhabdomyolysis. Continue IV heparin until echocardiogram is resulted No plans for cardiac catheterization at this time Further recommendations pending patient's course Nurse practitioner note has been reviewed by physician. Signing provider agrees with the documented findings, assessment, and plan of care. Past Medical History Past Medical History: Unable to Obtain Additional Past Medical History / Comment(s): [facility] History of Any Multi-Drug Resistant Organisms: None Reported Past Surgical History: Unable to Obtain Additional Past Surgical History / Comment(s): L breast biopsy, colonoscopy Past Anesthesia/Blood Transfusion Reactions: No Reported Reaction Past Psychological History: No Psychological Hx Reported Smoking Status: Never smoker Past Alcohol Use History: None Reported Past Drug Use History: None Reported - Past Family History Mother Family Medical History: No Reported History Additional Family Medical History / Comment(s): Mother was healthy Father Additional Family Medical History / Comment(s): Heart issues. Medications and Allergies Home Medications Medication Instructions Recorded Confirmed Type Calcium Carbonate [Calcium] 600 mg PO DAILY 10/06/17 03/31/22 History Escitalopram [Lexapro] 5 mg PO HS 10/06/17 03/31/22 History Atorvastatin Calcium [Lipitor] 10 mg PO DAILY 06/17/18 03/31/22 History Cholecalciferol [Vitamin D3 (125 125 mcg PO DAILY 03/31/22 03/31/22 History Mcg = 5000 Iu)] Docusate [Colace] 100 mg PO DAILY 03/31/22 03/31/22 History OLANZapine 20 mg PO HS 03/31/22 03/31/22 History Polyethylene Glycol 3350 [Miralax] 17 gm PO DAILY PRN 03/31/22 03/31/22 History Allergies Allergy/AdvReac Type Severity Reaction Status Date / Time No Known Allergies Allergy Verified 03/31/22 13:42 Physical Exam Vitals: Vital Signs Temp Pulse Pulse Resp BP BP Pulse Ox 04/01/22 06:06 98.4 F 04/01/22 04:00 99.6 F 80 14 110/66 99 04/01/22 00:00 98.6 F 83 14 102/57 97 03/31/22 20:00 98.2 F 84 20 117/60 99 03/31/22 19:03 98.4 F 83 20 113/59 98 03/31/22 10:26 94 03/31/22 10:22 98.0 F 94 16 108/71 98 Intake and Output 03/31/22 04/01/22 04/01/22 22:59 06:59 14:59 Output Total 1150 250 Balance -1150 -250 Output: Urine 1150 250 Uretheral (Pardo) 1150 Other: Voiding Method Indwelling Catheter Indwelling Catheter Weight 83.915 kg Results 04/01/22 10:17 03/31/22 11:13 Cardiac Enzymes 03/31/22 03/31/22 03/31/22 Range/Units 11:13 11:13 15:59 AST 644 H (14-36) U/L Troponin I 3.820 H* 2.820 H* (0.000-0.034) ng/mL 03/31/22 Range/Units 17:56 AST (14-36) U/L Troponin I 2.670 H* (0.000-0.034) ng/mL Coagulation 03/31/22 03/31/22 Range/Units 15:26 21:21 PT 10.5 (9.0-12.0) sec APTT 18.2 L 53.9 H (22.0-30.0) sec CBC 03/31/22 Range/Units 11:13 WBC 14.3 H (3.8-10.6) k/uL RBC 5.06 (3.80-5.40) m/uL Hgb 14.4 (11.4-16.0) gm/dL Hct 44.8 (34.0-46.0) % Plt Count 224 (150-450) k/uL Comprehensive Metabolic Panel 03/31/22 Range/Units 11:13 Sodium 146 H (137-145) mmol/L Potassium 3.9 (3.5-5.1) mmol/L Chloride 113 H (98-107) mmol/L Carbon Dioxide 26 (22-30) mmol/L BUN 29 H (7-17) mg/dL Creatinine 0.99 (0.52-1.04) mg/dL Glucose 110 H (74-99) mg/dL Calcium 9.4 (8.4-10.2) mg/dL AST 644 H (14-36) U/L ALT 185 H (4-34) U/L Alkaline Phosphatase 108 (38-126) U/L Total Protein 7.1 (6.3-8.2) g/dL Albumin 4.0 (3.5-5.0) g/dL Current Medications Generic Name Dose Route Start Last Admin Trade Name Freq PRN Reason Stop Dose Admin Hydrocodone Bitart/Acetaminophen 1 each 03/31/22 13:14 Hydrocodone/Apap 5-325mg 1 Each Tab PO Q4HR PRN Moderate Pain Calcium Carbonate/Glycine 500 mg 04/01/22 09:00 04/01/22 07:33 Calcium Carbonate 500 Mg Chewable PO 500 mg DAILY PIPO Administration Cholecalciferol 125 mcg 04/01/22 09:00 04/01/22 07:33 Cholecalciferol 125 Mcg (5000 Iu) Tablet PO 125 mcg DAILY PIPO Administration Docusate Sodium 100 mg 04/01/22 09:00 04/01/22 07:33 Docusate 100 Mg Cap PO 100 mg DAILY PIPO Administration Escitalopram Oxalate 5 mg 03/31/22 21:00 03/31/22 21:29 Escitalopram 5 Mg Tab PO 5 mg HS PIPO Administration Heparin Sodium (Porcine) 0 unit 03/31/22 14:52 Heparin Sodium 1,000 Un/Ml (10ml Vl) IV PER PROTOCOL PRN Low PTT Protocol Sodium Chloride 1,000 mls @ 150 mls/hr 03/31/22 15:00 04/01/22 06:48 Saline 0.9% IV Not Given .Q6H40M PIPO Heparin Sodium/Sodium Chloride 250 mls @ 10 mls/hr 03/31/22 15:00 03/31/22 15:35 25,000 unit/ Sodium Chloride IV 11.917 units/kg/hr .Q24H PIPO 10 mls/hr Administration Protocol 11.917 UNITS/KG/HR Ampicillin Sodium/Sulbactam 100 mls @ 200 mls/hr 04/01/22 02:00 04/01/22 06:04 Sodium 3 gm/ Sodium Chloride IVPB 200 mls/hr Q6HR PIPO Administration Protocol Ibuprofen 400 mg 03/31/22 13:14 Ibuprofen 400 Mg Tab PO Q6HR PRN Mild Pain or Fever > 100.5 Metoclopramide HCl 5 mg 03/31/22 13:18 Metoclopramide 5 Mg/Ml 2 Ml Vial IVP Q8H PRN Nausea And Vomiting Naloxone HCl 0.2 mg 03/31/22 13:14 Naloxone 0.4 Mg/Ml 1 Ml Vial IV Q2M PRN Opioid Reversal Olanzapine 20 mg 03/31/22 21:00 03/31/22 21:29 Olanzapine 10 Mg Tab PO 20 mg HS PIPO Administration Oxycodone/Acetaminophen 1 each 03/31/22 13:14 Oxycodone-Apap 5-325mg 1 Each Tab PO Q4HR PRN Severe Pain Polyethylene Glycol 17 gm 03/31/22 15:44 Polyethylene Glycol 3350 17 Gm Powd.Pack PO DAILY PRN Constipation Intake and Output 03/31/22 04/01/22 04/01/22 22:59 06:59 14:59 Output Total 1150 250 Balance -1150 -250 Output: Urine 1150 250 Uretheral (Pardo) 1150 Other: Voiding Method Indwelling Catheter Indwelling Catheter Weight 83.915 kg 03/31/22 11:13 03/31/22 11:13
[2022-04-01 12:05] LABS: Creatine Kinase 12623 U/L (30-135)
[2022-04-01] MEDS: HEPARIN SOD,PORK IN 0.45% NACL 25,000 UNIT in 0.45% NACL 1 250ML.BAG IV SCH (13:37)
--- NOTE | 2022-04-01 16:16 | P.PN ---
Subjective Patient was examined at bedside today not complaining of any new symptomatology. She is awake alert oriented 2. She is currently being fed by the aid and tolerating by mouth diet. Objective - Vital Signs Vital signs: Vital Signs Temp 97.8 F 04/01/22 15:45 Pulse 93 04/01/22 15:45 Resp 20 04/01/22 15:45 BP 114/62 04/01/22 15:45 Pulse Ox 98 04/01/22 15:45 Intake & Output 03/31/22 04/01/22 04/01/22 18:59 06:59 18:59 Intake Total 1570.333 Output Total 1150 250 Balance -1150 -250 1570.333 Weight 83.915 kg Intake: Intake, IV Titration 1570.333 Amount Ampicillin-Sulbactam 3 gm 100 In Sodium Chloride 0.9% 100 ml @ 200 mls/hr IVPB Q6HR PIPO Rx#:[id number] Heparin Sod,Pork in 0.45% 220.333 NaCl 25,000 unit In 0.45 % NaCl 1 250ml.bag @ 11. 917 UNITS/KG/HR 10 mls/hr IV .Q24H PIPO Rx#: [id number] Sodium Chloride 0.9% 1, 1250 000 ml @ 150 mls/hr IV . Q6H40M PIPO Rx#:[id number] Output: Urine 1150 250 Uretheral (Grayson) 1150 Other: Voiding Method Indwelling Catheter Indwelling Catheter Indwelling Catheter - Exam Gen: awake, alert HEENT: normocephalic, atraumatic, good hearing acuity, moist mucous membranes Resp: good air exchange, breathing comfortably with no accessory muscle use CVS: good distal perfusion x 4, regular rate and rhythm without murmurs GI: soft, NTTP, ND : no SPT, no CVAT, grayson catheter is present MSK: no pitting edema, no clubbing, multiple areas of bruising Neuro: non-focal, moving all extremities Psych: cooperative, euthymic mood Skin patient has some bruising noted on the face. - Labs CBC & Chem 7: 04/01/22 10:17 04/01/22 10:17 Labs: Abnormal Lab Results - Last 24 Hours (Table) 03/31/22 03/31/22 03/31/22 Range/Units 11:13 15:26 15:59 APTT 18.2 L (22.0-30.0) sec Potassium (3.5-5.1) mmol/L Chloride (98-107) mmol/L Carbon Dioxide (22-30) mmol/L BUN (7-17) mg/dL Glucose (74-99) mg/dL Calcium (8.4-10.2) mg/dL AST (14-36) U/L ALT (4-34) U/L Creatine Kinase (30-135) U/L CK-MB (CK-2) (0.0-2.4) ng/mL Troponin I 2.820 H* (0.000-0.034) ng/mL Total Protein (6.3-8.2) g/dL Albumin (3.5-5.0) g/dL Urine Appearance Cloudy H (Clear) Urine Protein 2+ H (Negative) Urine Glucose (UA) Trace H (Negative) Urine Ketones 1+ H (Negative) Urine Blood Large H (Negative) Urine Bacteria Rare H (None) /hpf Urine Mucus Many H (None) /hpf 03/31/22 03/31/22 04/01/22 Range/Units 17:56 21:21 10:17 APTT 53.9 H (22.0-30.0) sec Potassium 3.3 L (3.5-5.1) mmol/L Chloride 116 H (98-107) mmol/L Carbon Dioxide 20 L (22-30) mmol/L BUN 19 H (7-17) mg/dL Glucose 116 H (74-99) mg/dL Calcium 7.8 L (8.4-10.2) mg/dL AST 336 H (14-36) U/L ALT 134 H (4-34) U/L Creatine Kinase 01550 H* (30-135) U/L CK-MB (CK-2) (0.0-2.4) ng/mL Troponin I 2.670 H* (0.000-0.034) ng/mL Total Protein 5.6 L (6.3-8.2) g/dL Albumin 2.9 L (3.5-5.0) g/dL Urine Appearance (Clear) Urine Protein (Negative) Urine Glucose (UA) (Negative) Urine Ketones (Negative) Urine Blood (Negative) Urine Bacteria (None) /hpf Urine Mucus (None) /hpf 04/01/22 04/01/22 Range/Units 10:17 10:17 APTT 36.5 H (22.0-30.0) sec Potassium (3.5-5.1) mmol/L Chloride (98-107) mmol/L Carbon Dioxide (22-30) mmol/L BUN (7-17) mg/dL Glucose (74-99) mg/dL Calcium (8.4-10.2) mg/dL AST (14-36) U/L ALT (4-34) U/L Creatine Kinase (30-135) U/L CK-MB (CK-2) 9.5 H (0.0-2.4) ng/mL Troponin I (0.000-0.034) ng/mL Total Protein (6.3-8.2) g/dL Albumin (3.5-5.0) g/dL Urine Appearance (Clear) Urine Protein (Negative) Urine Glucose (UA) (Negative) Urine Ketones (Negative) Urine Blood (Negative) Urine Bacteria (None) /hpf Urine Mucus (None) /hpf Microbiology - Last 24 Hours (Table) 03/31/22 13:25 Blood Culture Gram Stain - Preliminary Blood Blood Culture - Preliminary Staphylococcus epidermidis 03/31/22 13:25 Blood Culture - Final Blood 03/31/22 11:13 Fungal Culture - Preliminary Groin Assessment and Plan Assessment: Assessment: #1 rhabdomyolysis patient was found on the floor unknown. Type #2 transaminitis #3 aspiration pneumonia #4 elevated cardiac troponin secondary to demand ischemia versus an STEMI? #5 mood disorder #6 hyperlipidemia Plan: -Admit to medicine for close monitoring -Aspiration/fall precaution -Continue with IV fluids 150 mL an hour -Blood cultures found to be most likely contaminant. We'll repeat and monitor closely. -Trend CK level tomorrow morning -Obtain 2-D echocardiogram, continue with heparin drip as per cardiology protocol -PT/OT -Continue monitor creatinine given elevated CK levels to avoid nephrotoxic agents. -Replace electrolyte when necessary -DVT prophylaxis currently at heparin drip.
[2022-04-01] MEDS ORDERED: Potassium Replacement Protocol 1 EACH MISC MISCELLANE PRN (18:45)
[2022-04-01] MEDS: POTASSIUM CHLORIDE ER 20 MEQ TAB.ER PO SCH ×2 (19:00→20:45)
[2022-04-01] MEDS: OLANZapine 10 MG TAB PO SCH (20:44)
[2022-04-01] MEDS: ESCITALOPRAM 5 MG TAB PO SCH (20:45)
[2022-04-02] MEDS: AMPICILLIN-SULBACTAM 3 GM in SODIUM CHLORIDE 0.9% 100 ML IVPB SCH ×4 (00:01→17:02)
[2022-04-02] MEDS ORDERED: LORazepam 2 MG/ML INJ IV STA (02:28)
[2022-04-02] MEDS: SODIUM CHLORIDE 0.9% 1,000 ML IV SCH ×3 (02:58→13:30)
[2022-04-02 03:54] LABS: African American GFR (CKD) >90 (>60 ml/min/1.73 sqM); Anion Gap 5 mmol/L; Blood Urea Nitrogen 13 mg/dL (7-17); Carbon Dioxide 19 mmol/L (22-30); Chloride 116 mmol/L (98-107); Glucose 106 mg/dL (74-99); Non-African American GFR(CKD) 89 (>60 ml/min/1.73 sqM); Potassium 3.4 mmol/L (3.5-5.1); Sodium 140 mmol/L (137-145)
[2022-04-02] MEDS: CALCIUM CARBONATE 500 MG CHEWABLE PO SCH (08:36)
[2022-04-02] MEDS: CHOLECALCIFEROL 125 MCG (5000 IU) TABLET PO SCH (08:36)
[2022-04-02] MEDS: DOCUSATE 100 MG CAP PO SCH (08:36)
[2022-04-02] MEDS: ASPIRIN 81 MG PO SCH (08:36)
--- NOTE | 2022-04-02 10:02 | P.PN ---
Subjective Progress Note Date: 04/02/22 HISTORY OF PRESENT ILLNESS: This is a 71-year-old female with a past medical history significant for mood disorder and hyperlipidemia. Patient does not follow with a system support administrator. We have been asked to see the patient in consultation for abnormal troponins. Patient examined at the bedside. Patient is a poor historian and is unable to provide much HPI. Apparently, the patients family had requested a wellness check after not being able to get in contact with the patient for the past 2-3 days. The patient was found found on the floor. The patient was estimated to be laying on the floor for 2-3 days. The patient was conscious when she was found. Apparently the patient was also found to be covered in urine and feces. Initially when talking to the patient she stated she had been having chest pain for the past week. However when the patient was asked again if she was having chest pain, she stated that she was not having chest pain and did not have any chest pain in the past. She denies having any shortness of breath. Denies dizziness or lightheadedness. The patient was found to have rhabdomyolysis and also elevated troponins. She was started on IV heparin. * EKG reveals sinus mechanism with no signs of acute ischemia. Left axis deviation. * Chest xray left perihilar and lower lobe subsegmental atelectasis or infiltrate * Laboratory data: WBC 9.4. Hemoglobin 12.6. Platelet count 193. Sodium 146. Potassium 3.9. BUN 29. Creatinine 0.99. Lactic acid 0.8. Creatinine kinase 22,825. Troponin 3.820. 2.820. 2.670. * Current home cardiac medications include Lipitor 10 mg daily 04/02/2022 Patient examined this morning at the bedside. Patient was restless overnight per nursing and pulled out 2 IVs. She was given IV Ativan. She is somewhat lethargic this morning and is unable to answer questions. Per nursing, the patient had no complaints of chest pain, pressure, or shortness of breath overnight. She remains on IV heparin. PHYSICAL EXAM: VITAL SIGNS: Reviewed. GENERAL: Well-developed in no acute distress. HEENT: Bruising noted to right side of face. Head is normocephalic. Pupils are equal, round. Sclerae anicteric. Mucous membranes of the mouth are moist. Neck supple. No JVD or thyromegaly LUNGS: Respirations even and unlabored. Lungs essentially clear to auscultation bilaterally. HEART: Regular rate and rhythm. S1 and S2 heard. EXTREMITIES: Normal range of motion. No clubbing or cyanosis. Peripheral pulses intact. No lower extremity edema ASSESSMENT: Rhabdomyolysis, patient found laying down for 2-3 days Aspiration pneumonia Abnormal troponins, suspect secondary to rhabdomyolysis Transaminitis Mood disorder Hyperlipidemia PLAN: 2-D echo ordered. Await results Continue IV heparin until echocardiogram is resulted Add aspirin 81 mg daily No plans for cardiac catheterization at this time Further recommendations pending patient's course Nurse practitioner note has been reviewed by physician. Signing provider agrees with the documented findings, assessment, and plan of care. Objective - Vital Signs Vital signs: Vital Signs Temp 98.4 F 04/02/22 08:00 Pulse 69 04/02/22 08:00 Resp 18 04/02/22 08:00 BP 134/74 04/02/22 08:00 Pulse Ox 93 L 04/02/22 08:00 Intake & Output 04/01/22 04/02/22 04/02/22 18:59 06:59 18:59 Intake Total 1670.333 90.505 Output Total 375 300 Balance 1295.333 -209.495 Intake: Intake, IV Titration 1670.333 90.505 Amount Ampicillin-Sulbactam 3 gm 100 In Sodium Chloride 0.9% 100 ml @ 200 mls/hr IVPB Q6HR [facility] Rx#:[id number] Ampicillin-Sulbactam 3 gm 100 In Sodium Chloride 0.9% 100 ml @ 200 mls/hr IVPB Q6HR [facility] Rx#:[id number] Heparin Sod,Pork in 0.45% 220.333 90.505 NaCl 25,000 unit In 0.45 % NaCl 1 250ml.bag @ 11. 917 UNITS/KG/HR 10 mls/hr IV .Q24H [facility] Rx#: [id number] Sodium Chloride 0.9% 1, 1250 000 ml @ 150 mls/hr IV . Q6H40M [facility] Rx#:[id number] Output: Urine 375 300 Uretheral (Pardo) 375 Other: Voiding Method Indwelling Catheter Indwelling Catheter Indwelling Catheter - Labs CBC & Chem 7: 04/01/22 10:17 04/02/22 03:15 Labs: Abnormal Lab Results - Last 24 Hours (Table) 04/01/22 04/01/22 04/01/22 Range/Units 10:17 10:17 10:17 APTT 36.5 H (22.0-30.0) sec Potassium 3.3 L (3.5-5.1) mmol/L Chloride 116 H (98-107) mmol/L Carbon Dioxide 20 L (22-30) mmol/L BUN 19 H (7-17) mg/dL Glucose 116 H (74-99) mg/dL Calcium 7.8 L (8.4-10.2) mg/dL AST 336 H (14-36) U/L ALT 134 H (4-34) U/L Creatine Kinase 44529 H* (30-135) U/L CK-MB (CK-2) 9.5 H (0.0-2.4) ng/mL Total Protein 5.6 L (6.3-8.2) g/dL Albumin 2.9 L (3.5-5.0) g/dL 04/01/22 04/02/22 04/02/22 Range/Units 18:48 03:15 03:15 APTT 38.6 H 50.6 H (22.0-30.0) sec Potassium 3.4 L (3.5-5.1) mmol/L Chloride 116 H (98-107) mmol/L Carbon Dioxide 19 L (22-30) mmol/L BUN (7-17) mg/dL Glucose 106 H (74-99) mg/dL Calcium 8.0 L (8.4-10.2) mg/dL AST (14-36) U/L ALT (4-34) U/L Creatine Kinase (30-135) U/L CK-MB (CK-2) (0.0-2.4) ng/mL Total Protein (6.3-8.2) g/dL Albumin (3.5-5.0) g/dL 04/02/22 Range/Units 03:15 APTT (22.0-30.0) sec Potassium (3.5-5.1) mmol/L Chloride (98-107) mmol/L Carbon Dioxide (22-30) mmol/L BUN (7-17) mg/dL Glucose (74-99) mg/dL Calcium (8.4-10.2) mg/dL AST (14-36) U/L ALT (4-34) U/L Creatine Kinase (30-135) U/L CK-MB (CK-2) 11.4 H (0.0-2.4) ng/mL Total Protein (6.3-8.2) g/dL Albumin (3.5-5.0) g/dL Microbiology - Last 24 Hours (Table) 03/31/22 13:25 Blood Culture Gram Stain - Preliminary Blood Blood Culture - Preliminary Staphylococcus epidermidis 03/31/22 13:25 Blood Culture - Final Blood
--- NOTE | 2022-04-02 10:34 | CDI ---
Documentation Clarification Form Date: 04/02/2022 10:19:13 AM From: Lisa Ziegler CCS, CCDS Admit Date: 03/31/2022 01:57:00 PM Patient Name: Smitha Khan Visit Number: [id number] Discharge Date: ATTENTION: The Clinical Documentation Specialists (CDI) and [facility] Coding Staff appreciate your assistance in clarifying documentation. Please respond to the clarification below the line at the bottom and electronically sign. The CDI & [facility] Coding staff will review the response and follow-up if needed. Please note: Queries are made part of the Legal Health Record. If you have any questions, please contact the author of this message via ITS. Dr. Jagjit Mccauley: The patient is admitted with Aspiration Pneumonia and Rhabdomyolysis after being found down after a fall in her home, possibly for 2-3 days. The initial UA on 03/31 is abnormal, no culture done. Pardo Catheter initiated on admission. Additional clarification regarding this diagnosis is requested. History/Risk Factors per the 03/31 H/P: Osteoarthritis Bilateral Shoulders, Chronic rotator cuff tendinopathy, Hyperlipidemia, Mood disorder, DNR. Clinical Indicators: Presented to the ED on 03/31 via EMS after being found down in her home possibly for 2-3 days after a fall. Found lying in her own urine & stool, also found to have tinea cruris and possible pneumonia. Admit with Aspiration Pneumonia, Rhabdomyolysis and Elevated Troponin. 03/31 VS: T 98.0, P 94, R 16, BP 108/71, PO 98 RA, BMI: 30.8 03/31 LAB: WBC 14.3, Neut 12.1; APTT 18.2; Na 146, Cl 113, BUN 29, Glucose 110, AST 644, ALT 185, Creatine Kinase 55610, Troponin 3.820, 2.820, 2.670 03/31 UA: Red, Cloudy, 2+ Protein, Trace Glucose, 1+ Ketones, Large Blood. Urine Culture: not done Treatment 03/31 Heparin Drip, Urinary Catheter Initiated, Fungal, Sputum cultures, I Na Cl 1,000 mls @ 999 mls/hr q1H x2, IV Rocephn 50 mls @ 100 mls/hr x1, IV Azithromycin 250 mls @ 250 mls/hr x1, po Purchase 5-325 1 q4H/prn, I Na Cl 1,000 mls @ 150 mls/hr q6H. 04/01: IV Ampicillin 100 mls @ 200 mls/hr q6H Please clarify if there is an additional diagnosis for this patient: [ ] UTI [ ] Abnormal UA insignificant [ ] Other, please specify: [ 1 ] Unable to determine (Template Last Revised: January 2021) MTDD
--- NOTE | 2022-04-02 12:25 | CA ---
Transthoracic Echo Report Name: Smitha Khan Age: 71 Gender: F : 1950 Exam Date: 04/01/2022 09:17 Exam Location: [place] [facility] Ht (in): 65 Wt (lb): 185 Ordering Physician: Kavitha Neff Attending/Referring Phys: [id number], Aishwarya Deep Tissue Massage Therapist Italia Matthew RDCS Procedure CPT: Indications: LV function, abnormal trops Cardiac Hx: Technical Quality: Technically difficult study Contrast 1: Lumason Total Dose (mL): 4 Contrast 2: Total Dose (mL): MEASUREMENTS (Male / Female) Normal Values 2D ECHO LV Diastolic Diameter PLAX 4.2 cm 4.2 - 5.9 / 3.9 - 5.3 cm LV Systolic Diameter PLAX 3.0 cm IVS Diastolic Thickness 1.0 cm 0.6 - 1.0 / 0.6 - 0.9 cm LVPW Diastolic Thickness 1.0 cm 0.6 - 1.0 / 0.6 - 0.9 cm LV Relative Wall Thickness 0.5 RV Internal Dim ED PLAX 2.4 cm LA Volume 43.4 cm??? 18 - 58 / 22 - 52 cm??? M-MODE Aortic Root Diameter MM 3.4 cm LA Systolic Diameter MM 3.1 cm LA Ao Ratio MM 0.9 AV Cusp Separation MM 1.9 cm DOPPLER AV Peak Velocity 107.4 cm/s AV Peak Gradient 4.6 mmHg LVOT Peak Velocity 85.6 cm/s LVOT Peak Gradient 2.9 mmHg MV Area PHT 4.5 cm??? Mitral E Point Velocity 78.6 cm/s Mitral A Point Velocity 86.2 cm/s Mitral E to A Ratio 0.9 MV Deceleration Time 167.1 ms TR Peak Velocity 191.5 cm/s TR Peak Gradient 14.7 mmHg Right Ventricular Systolic Press 19.2 mmHg FINDINGS Left Ventricle Left ventricular cavity size normal. Left ventricular wall thickness normal. Basal septal hypokinesis, basal and mid anterior wall hypokinesis, basal inferior lateral wall hypokinesis. Left ventricular ejection fraction is estimated at 45-50 %. Right Ventricle Mild right ventricular dilatation. Right ventricular systolic pressure within normal limits. Right Atrium Normal right atrial size. Left Atrium Normal left atrial size. No evidence for an atrial septal defect. Mitral Valve Mild mitral regurgitation. Aortic Valve No aortic valve stenosis or regurgitation. Tricuspid Valve Mild tricuspid regurgitation. Pulmonic Valve No pulmonic regurgitation. Pericardium Minimal pericardial effusion (normal variant). Aorta Normal size aortic root and proximal ascending aorta. CONCLUSIONS Normal left ventricular dimension and systolic function Please see above for further details Previewed by: Dr. Samson Malcolm MD (Electronically Signed) Final Date: 02 Apr 2022 12:24
--- NOTE | 2022-04-02 15:48 | P.PN ---
Subjective Patient was examined at bedside today continues to be confused. She does have restrains on. Case discussed with RN present at bedside. Objective - Vital Signs Vital signs: Vital Signs Temp 98.2 F 04/02/22 12:00 Pulse 71 04/02/22 13:28 Resp 18 04/02/22 12:00 BP 127/69 04/02/22 12:00 Pulse Ox 95 04/02/22 12:00 Intake & Output 04/01/22 04/02/22 04/02/22 18:59 06:59 18:59 Intake Total 1670.333 90.505 Output Total 375 300 Balance 1295.333 -209.495 Intake: Intake, IV Titration 1670.333 90.505 Amount Ampicillin-Sulbactam 3 gm 100 In Sodium Chloride 0.9% 100 ml @ 200 mls/hr IVPB Q6HR [facility] Rx#:[id number] Ampicillin-Sulbactam 3 gm 100 In Sodium Chloride 0.9% 100 ml @ 200 mls/hr IVPB Q6HR [facility] Rx#:[id number] Heparin Sod,Pork in 0.45% 220.333 90.505 NaCl 25,000 unit In 0.45 % NaCl 1 250ml.bag @ 11. 917 UNITS/KG/HR 10 mls/hr IV .Q24H [facility] Rx#: [id number] Sodium Chloride 0.9% 1, 1250 000 ml @ 150 mls/hr IV . Q6H40M [facility] Rx#:[id number] Output: Urine 375 300 Uretheral (Grayson) 375 Other: Voiding Method Indwelling Catheter Indwelling Catheter Indwelling Catheter - Exam Gen: awake, alert and confused HEENT: normocephalic, atraumatic, good hearing acuity, moist mucous membranes Resp: good air exchange, breathing comfortably with no accessory muscle use CVS: good distal perfusion x 4, regular rate and rhythm without murmurs GI: soft, NTTP, ND : no SPT, no CVAT, grayson catheter is present MSK: no pitting edema, no clubbing, multiple areas of bruising Neuro: non-focal, moving all extremities Psych: cooperative, euthymic mood Skin patient has some bruising noted on the face. Patient has some restraints on. - Labs CBC & Chem 7: 04/01/22 10:17 04/02/22 03:15 Labs: Abnormal Lab Results - Last 24 Hours (Table) 04/01/22 04/02/22 04/02/22 Range/Units 18:48 03:15 03:15 APTT 38.6 H 50.6 H (22.0-30.0) sec Potassium 3.4 L (3.5-5.1) mmol/L Chloride 116 H (98-107) mmol/L Carbon Dioxide 19 L (22-30) mmol/L Glucose 106 H (74-99) mg/dL Calcium 8.0 L (8.4-10.2) mg/dL CK-MB (CK-2) (0.0-2.4) ng/mL 04/02/22 Range/Units 03:15 APTT (22.0-30.0) sec Potassium (3.5-5.1) mmol/L Chloride (98-107) mmol/L Carbon Dioxide (22-30) mmol/L Glucose (74-99) mg/dL Calcium (8.4-10.2) mg/dL CK-MB (CK-2) 11.4 H (0.0-2.4) ng/mL Microbiology - Last 24 Hours (Table) 03/31/22 13:25 Blood Culture Gram Stain - Preliminary Blood Blood Culture - Preliminary Staphylococcus epidermidis Assessment and Plan Assessment: Assessment: #1 rhabdomyolysis patient was found on the floor unknown. Type #2 transaminitis #3 aspiration pneumonia #4 elevated cardiac troponin secondary to demand ischemia versus an STEMI? #5 mood disorder #6 hyperlipidemia Plan: -Admit to medicine for close monitoring -Aspiration/fall precaution -Continue with IV fluids 150 mL an hour -Pending CK level ordered stat. -Blood cultures found to be most likely contaminant. We'll repeat and monitor closely. -2-D echocardiogram reviewed showing a mildly decreased ejection fraction with hypokinesis. Pending further recommendations from cardiology team. -PT/OT -Replace electrolyte when necessary -DVT prophylaxis currently at heparin drip.
[2022-04-02] MEDS: HEPARIN SOD,PORK IN 0.45% NACL 25,000 UNIT in 0.45% NACL 1 250ML.BAG IV SCH (17:02)
[2022-04-02] MEDS: IBUPROFEN 400 MG TAB PO PRN (17:19)
[2022-04-02] MEDS: OLANZapine 10 MG TAB PO SCH (21:22)
[2022-04-02] MEDS: ESCITALOPRAM 5 MG TAB PO SCH (21:22)
[2022-04-03] MEDS: AMPICILLIN-SULBACTAM 3 GM in SODIUM CHLORIDE 0.9% 100 ML IVPB SCH ×5 (00:32→23:21)
[2022-04-03] MEDS: SODIUM CHLORIDE 0.9% 1,000 ML IV SCH ×5 (02:00→23:22)
[2022-04-03 08:58] LABS: Potassium 3.4 mmol/L (3.5-5.1)
[2022-04-03 09:00] LABS: African American GFR (CKD) >90 (>60 ml/min/1.73 sqM); Anion Gap 6 mmol/L; Blood Urea Nitrogen 9 mg/dL (7-17); Calcium 8.1 mg/dL (8.4-10.2); Carbon Dioxide 20 mmol/L (22-30); Chloride 115 mmol/L (98-107); Glucose 92 mg/dL (74-99); Non-African American GFR(CKD) 86 (>60 ml/min/1.73 sqM); Sodium 141 mmol/L (137-145)
[2022-04-03 09:01] LABS: Basophils # (A) 0.1 k/uL (0-0.2); Basophils % (A) 1 %; Eosinophils # (A) 0.5 k/uL (0-0.7); Eosinophils % (A) 4 %; HCT 39.6 % (34.0-46.0); HGB 12.5 gm/dL (11.4-16.0); Hypochromasia Slight; Lymphocytes # (A) 1.2 k/uL (1.0-4.8); Lymphocytes % (A) 9 %; MCH 28.9 pg (25.0-35.0); MCHC 31.5 g/dL (31.0-37.0); MCV 91.7 fL (80.0-100.0); Mean Platelet Volume 8.5; Monocytes # (A) 0.7 k/uL (0-1.0); Monocytes % (A) 5 %; Neutrophils # (A) 10.5 k/uL (1.3-7.7); Neutrophils % (A) 80 %; Platelet Count 194 k/uL (150-450); RBC 4.32 m/uL (3.80-5.40); RDW 14.1 % (11.5-15.5); WBC 13.1 k/uL (3.8-10.6)
--- NOTE | 2022-04-03 10:00 | P.PN ---
Subjective Progress Note Date: 04/03/22 HISTORY OF PRESENT ILLNESS: This is a 71-year-old female with a past medical history significant for mood disorder and hyperlipidemia. 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 We have been asked to see the patient in consultation for abnormal troponins. Patient examined at the bedside. Patient is a poor historian and is unable to provide much HPI. Apparently, the patients family had requested a wellness check after not being able to get in contact with the patient for the past 2-3 days. The patient was found found on the floor. The patient was estimated to be laying on the floor for 2-3 days. The patient was conscious when she was found. Apparently the patient was also found to be covered in urine and feces. Initially when talking to the patient she stated she had been having chest pain for the past week. However when the patient was asked again if she was having chest pain, she stated that she was not having chest pain and did not have any chest pain in the past. She denies having any shortness of breath. Denies dizziness or lightheadedness. The patient was found to have rhabdomyolysis and also elevated troponins. She was started on IV heparin. * EKG reveals sinus mechanism with no signs of acute ischemia. Left axis deviation. * Chest xray left perihilar and lower lobe subsegmental atelectasis or infiltrate * Laboratory data: WBC 9.4. Hemoglobin 12.6. Platelet count 193. Sodium 146. Potassium 3.9. BUN 29. Creatinine 0.99. Lactic acid 0.8. Creatinine kinase 22,825. Troponin 3.820. 2.820. 2.670. * Current home cardiac medications include Lipitor 10 mg daily 04/02/2022 Patient examined this morning at the bedside. Patient was restless overnight per nursing and pulled out 2 IVs. She was given IV Ativan. She is somewhat lethargic this morning and is unable to answer questions. Per nursing, the patient had no complaints of chest pain, pressure, or shortness of breath overnight. She remains on IV heparin. 04/03/2022 Patient examined this point the bedside. Patient remains somewhat lethargic. No complaints of chest pain or shortness of breath. Echocardiogram completed revealing ejection fraction 45-50%, basal septal hypokinesis, basal and mid anterior wall hypokinesis, basal inferior lateral wall hypokinesis, mild mitral regurgitation, and mild tricuspid regurgitation PHYSICAL EXAM: VITAL SIGNS: Reviewed. GENERAL: Well-developed in no acute distress. HEENT: Bruising noted to right side of face. Head is normocephalic. Pupils are equal, round. Sclerae anicteric. Mucous membranes of the mouth are moist. Neck supple. No JVD or thyromegaly LUNGS: Respirations even and unlabored. Lungs essentially clear to auscultation bilaterally. HEART: Regular rate and rhythm. S1 and S2 heard. EXTREMITIES: Normal range of motion. No clubbing or cyanosis. Peripheral pulses intact. No lower extremity edema ASSESSMENT: Rhabdomyolysis, patient found laying down for 2-3 days Aspiration pneumonia Abnormal troponins, suspect secondary to rhabdomyolysis Transaminitis Mood disorder Hyperlipidemia PLAN: Continue current cardiac medications Add metoprolol succinate 12.5 mg daily Resume Lipitor when transaminitis resolves Discontinue IV heparin No plans for cardiac catheterization at this time Continue with medical management Further recommendations pending patient's course Nurse practitioner note has been reviewed by physician. Signing provider agrees with the documented findings, assessment, and plan of care. Objective - Vital Signs Vital signs: Vital Signs Temp 98.1 F 04/03/22 04:00 Pulse 81 04/03/22 04:00 Resp 14 04/03/22 04:00 BP 114/67 04/03/22 04:00 Pulse Ox 97 04/03/22 04:00 Intake & Output 04/02/22 04/03/22 04/03/22 18:59 06:59 18:59 Intake Total 399.495 Output Total 750 400 Balance -350.505 -400 Intake: Intake, IV Titration 159.495 Amount Heparin Sod,Pork in 0.45% 159.495 NaCl 25,000 unit In 0.45 % NaCl 1 250ml.bag @ 11. 917 UNITS/KG/HR 10 mls/hr IV .Q24H [facility] Rx#: [id number] Oral 240 Output: Urine 750 400 Other: Voiding Method Indwelling Catheter Indwelling Catheter - Labs CBC & Chem 7: 04/03/22 08:02 04/03/22 08:02 Labs: Abnormal Lab Results - Last 24 Hours (Table) 04/02/22 04/03/22 04/03/22 Range/Units 18:11 03:48 03:48 WBC (3.8-10.6) k/uL Neutrophils # (1.3-7.7) k/uL APTT (22.0-30.0) sec Potassium (3.5-5.1) mmol/L Chloride (98-107) mmol/L Carbon Dioxide (22-30) mmol/L Calcium (8.4-10.2) mg/dL Creatine Kinase 95938 H* 5264 H* (30-135) U/L CK-MB (CK-2) 4.8 H (0.0-2.4) ng/mL 04/03/22 04/03/22 04/03/22 Range/Units 03:48 08:02 08:02 WBC 13.1 H (3.8-10.6) k/uL Neutrophils # 10.5 H (1.3-7.7) k/uL APTT 73.2 H (22.0-30.0) sec Potassium 3.4 L (3.5-5.1) mmol/L Chloride 115 H (98-107) mmol/L Carbon Dioxide 20 L (22-30) mmol/L Calcium 8.1 L (8.4-10.2) mg/dL Creatine Kinase (30-135) U/L CK-MB (CK-2) (0.0-2.4) ng/mL Microbiology - Last 24 Hours (Table) 04/01/22 16:28 Blood Culture - Preliminary Blood No Growth after 24 hours
[2022-04-03] MEDS: CHOLECALCIFEROL 125 MCG (5000 IU) TABLET PO SCH (10:01)
[2022-04-03] MEDS: METOPROLOL SUCCINATE (ER) 25 MG TAB.ER.24H PO SCH (10:01)
[2022-04-03] MEDS: CALCIUM CARBONATE 500 MG CHEWABLE PO SCH (10:01)
[2022-04-03] MEDS: DOCUSATE 100 MG CAP PO SCH (10:01)
[2022-04-03] MEDS: ASPIRIN 81 MG PO SCH (10:02)
--- NOTE | 2022-04-03 10:58 | P.PN ---
Subjective Patient examined at bedside today she is awake alert oriented 2 more than yesterday. Still continues to have episodes of delirium/. Case discussed with RN present at bedside. Objective - Vital Signs Vital signs: Vital Signs Temp 97.5 F L 04/03/22 10:00 Pulse 87 04/03/22 10:00 Resp 16 04/03/22 10:00 BP 126/76 04/03/22 10:00 Pulse Ox 95 04/03/22 10:00 Intake & Output 04/02/22 04/03/22 04/03/22 18:59 06:59 18:59 Intake Total 399.495 200 Output Total 750 400 550 Balance -350.505 -400 -350 Intake: Intake, IV Titration 159.495 Amount Heparin Sod,Pork in 0.45% 159.495 NaCl 25,000 unit In 0.45 % NaCl 1 250ml.bag @ 11. 917 UNITS/KG/HR 10 mls/hr IV .Q24H [facility] Rx#: [id number] Oral 240 200 Output: Urine 750 400 550 Other: Voiding Method Indwelling Catheter Indwelling Catheter Indwelling Catheter - Exam Gen: awake, alert and confused HEENT: normocephalic, atraumatic, good hearing acuity, moist mucous membranes Resp: good air exchange, breathing comfortably with no accessory muscle use CVS: good distal perfusion x 4, regular rate and rhythm without murmurs GI: soft, NTTP, ND : no SPT, no CVAT, grayson catheter is present MSK: no pitting edema, no clubbing, multiple areas of bruising Neuro: non-focal, moving all extremities Psych: cooperative, euthymic mood Skin patient has some bruising noted on the face. Patient has some restraints on. - Labs CBC & Chem 7: 04/03/22 08:02 04/03/22 08:02 Labs: Abnormal Lab Results - Last 24 Hours (Table) 04/02/22 04/03/22 04/03/22 Range/Units 18:11 03:48 03:48 WBC (3.8-10.6) k/uL Neutrophils # (1.3-7.7) k/uL APTT (22.0-30.0) sec Potassium (3.5-5.1) mmol/L Chloride (98-107) mmol/L Carbon Dioxide (22-30) mmol/L Calcium (8.4-10.2) mg/dL Creatine Kinase 94875 H* 5264 H* (30-135) U/L CK-MB (CK-2) 4.8 H (0.0-2.4) ng/mL 04/03/22 04/03/22 04/03/22 Range/Units 03:48 08:02 08:02 WBC 13.1 H (3.8-10.6) k/uL Neutrophils # 10.5 H (1.3-7.7) k/uL APTT 73.2 H (22.0-30.0) sec Potassium 3.4 L (3.5-5.1) mmol/L Chloride 115 H (98-107) mmol/L Carbon Dioxide 20 L (22-30) mmol/L Calcium 8.1 L (8.4-10.2) mg/dL Creatine Kinase (30-135) U/L CK-MB (CK-2) (0.0-2.4) ng/mL Microbiology - Last 24 Hours (Table) 04/01/22 16:28 Blood Culture - Preliminary Blood No Growth after 24 hours Assessment and Plan Assessment: Assessment: #1 rhabdomyolysis patient was found on the floor unknown. #2 transaminitis can be secondary to extreme dehydration/rhabdo #3 aspiration pneumonia #4 elevated cardiac troponin secondary to demand ischemia versus NSTEMI #5 mood disorder #6 hyperlipidemia Plan: -Admit to medicine for close monitoring -Aspiration/fall precaution -Repeat chest x-ray. Patient was started on Unasyn for possible aspiration pneumonia. Recommend continuing for a total of 5 days. Can be switched over to oral once patient is medically stable for discharge on Augmentin. -Continue with IV fluids 150 mL an hour -CK levels are trending down. -Blood cultures found to be most likely contaminant. We'll repeat and monitor closely. -2-D echocardiogram reviewed showing a mildly decreased ejection fraction with hypokinesis. Pending further recommendations from cardiology team. -Monitor LFTs for tomorrow. Trending down. -PT/OT -Replace electrolyte when necessary -DVT prophylaxis currently at heparin drip.
[2022-04-03] MEDS: OLANZapine 10 MG TAB PO SCH (19:53)
[2022-04-03] MEDS: ESCITALOPRAM 5 MG TAB PO SCH (19:53)
[2022-04-04] MEDS: SODIUM CHLORIDE 0.9% 1,000 ML IV SCH ×3 (05:06→19:59)
[2022-04-04] MEDS: AMPICILLIN-SULBACTAM 3 GM in SODIUM CHLORIDE 0.9% 100 ML IVPB SCH ×3 (06:08→17:27)
[2022-04-04] MEDS: METOPROLOL SUCCINATE (ER) 25 MG TAB.ER.24H PO SCH (08:46)
[2022-04-04] MEDS: ASPIRIN 81 MG PO SCH (08:46)
[2022-04-04] MEDS: DOCUSATE 100 MG CAP PO SCH (08:46)
[2022-04-04] MEDS: CHOLECALCIFEROL 125 MCG (5000 IU) TABLET PO SCH (08:46)
[2022-04-04] MEDS: CALCIUM CARBONATE 500 MG CHEWABLE PO SCH (08:46)
[2022-04-04 09:05] LABS: Basophils % (A) 0 %; Eosinophils # (A) 0.4 k/uL (0-0.7); Eosinophils % (A) 3 %; HCT 36.7 % (34.0-46.0); HGB 11.7 gm/dL (11.4-16.0); Lymphocytes # (A) 1.2 k/uL (1.0-4.8); Lymphocytes % (A) 9 %; MCH 27.8 pg (25.0-35.0); MCHC 31.8 g/dL (31.0-37.0); MCV 87.5 fL (80.0-100.0); Monocytes % (A) 7 %; Neutrophils # (A) 11.2 k/uL (1.3-7.7); Neutrophils % (A) 80 %; Platelet Count 258 k/uL (150-450); RBC 4.19 m/uL (3.80-5.40); RDW 14.4 % (11.5-15.5)
[2022-04-04 09:25] LABS: ALT 105 U/L (4-34); AST 140 U/L (14-36); African American GFR (CKD) >90 (>60 ml/min/1.73 sqM); Albumin 2.6 g/dL (3.5-5.0); Alkaline Phosphatase 89 U/L (38-126); Anion Gap 6 mmol/L; Blood Urea Nitrogen 5 mg/dL (7-17); Calcium 7.9 mg/dL (8.4-10.2); Carbon Dioxide 24 mmol/L (22-30); Chloride 109 mmol/L (98-107); Glucose 91 mg/dL (74-99); Non-African American GFR(CKD) 86 (>60 ml/min/1.73 sqM); Sodium 139 mmol/L (137-145); Total Bilirubin 0.6 mg/dL (0.2-1.3); Total Protein 5.1 g/dL (6.3-8.2)
--- NOTE | 2022-04-04 10:00 | XR ---
EXAMINATION TYPE: XR chest 1V portable DATE OF EXAM: 04/04/2022 COMPARISON: 03/31/2022 HISTORY: Shortness of breath TECHNIQUE: Single frontal view of the chest is obtained. FINDINGS: Diffuse interstitial pattern with bilateral infiltrate and small effusions. Heart size is prominent. Atherosclerotic change aorta. Chronic right clavicular deformity. No pneumothorax. IMPRESSION: Bilateral infiltrate and pleural effusion correlate for pneumonia. Underlying venous con gestion not excluded.
[2022-04-04] MEDS: POTASSIUM CHLORIDE ER 20 MEQ TAB.ER PO SCH ×2 (11:22→15:45)
--- NOTE | 2022-04-04 12:14 | P.PN ---
Subjective Progress Note Date: 04/04/22 HISTORY OF PRESENT ILLNESS: This is a 71-year-old female with a past medical history significant for mood disorder and hyperlipidemia. Patient does not follow with a hooker up. We have been asked to see the patient in consultation for abnormal troponins. Patient examined at the bedside. Patient is a poor historian and is unable to provide much HPI. Apparently, the patients family had requested a wellness check after not being able to get in contact with the patient for the past 2-3 days. The patient was found found on the floor. The patient was estimated to be laying on the floor for 2-3 days. The patient was conscious when she was found. Apparently the patient was also found to be covered in urine and feces. Initially when talking to the patient she stated she had been having chest pain for the past week. However when the patient was asked again if she was having chest pain, she stated that she was not having chest pain and did not have any chest pain in the past. She denies having any shortness of breath. Denies dizziness or lightheadedness. The patient was found to have rhabdomyolysis and also elevated troponins. She was started on IV heparin. * EKG reveals sinus mechanism with no signs of acute ischemia. Left axis deviation. * Chest xray left perihilar and lower lobe subsegmental atelectasis or infiltrate * Laboratory data: WBC 9.4. Hemoglobin 12.6. Platelet count 193. Sodium 146. Potassium 3.9. BUN 29. Creatinine 0.99. Lactic acid 0.8. Creatinine kinase 22,825. Troponin 3.820. 2.820. 2.670. * Current home cardiac medications include Lipitor 10 mg daily 04/02/2022 Patient examined this morning at the bedside. Patient was restless overnight per nursing and pulled out 2 IVs. She was given IV Ativan. She is somewhat lethargic this morning and is unable to answer questions. Per nursing, the patient had no complaints of chest pain, pressure, or shortness of breath overnight. She remains on IV heparin. 04/03/2022 Patient examined this point the bedside. Patient remains somewhat lethargic. No complaints of chest pain or shortness of breath. Echocardiogram completed revealing ejection fraction 45-50%, basal septal hypokinesis, basal and mid anterior wall hypokinesis, basal inferior lateral wall hypokinesis, mild mitral regurgitation, and mild tricuspid regurgitation 04/04/2022 Patient examined this morning at the bedside. Patient is somewhat more awake today however she remains confused. No complaints of chest pain or pressure. No complaints of shortness of breath. Vital signs are stable. PHYSICAL EXAM: VITAL SIGNS: Reviewed. GENERAL: Well-developed in no acute distress. HEENT: Bruising noted to right side of face. Head is normocephalic. Pupils are equal, round. Sclerae anicteric. Mucous membranes of the mouth are moist. Neck supple. No JVD or thyromegaly LUNGS: Respirations even and unlabored. Lungs essentially clear to auscultation bilaterally. HEART: Regular rate and rhythm. S1 and S2 heard. EXTREMITIES: Normal range of motion. No clubbing or cyanosis. Peripheral pulses intact. No lower extremity edema ASSESSMENT: Rhabdomyolysis, patient found laying down for 2-3 days Aspiration pneumonia Abnormal troponins, suspect secondary to rhabdomyolysis Mild cardiomyopathy with LV wall hypokinesis, etiology unclear Transaminitis Mood disorder Hyperlipidemia PLAN: Continue current cardiac medications Continue with medical management Possible stress test on Thursday to be performed to rule out underlying CAD secondary to abnormal echocardiogram Further recommendations pending patient's course Nurse practitioner note has been reviewed by physician. Signing provider agrees with the documented findings, assessment, and plan of care. Objective - Vital Signs Vital signs: Vital Signs Temp 99.2 F 04/04/22 08:00 Pulse 96 04/04/22 08:00 Resp 18 04/04/22 08:00 BP 124/76 04/04/22 08:00 Pulse Ox 96 04/04/22 08:00 Intake & Output 04/03/22 04/04/22 04/04/22 18:59 06:59 18:59 Intake Total 510 1250 Output Total 850 900 475 Balance -340 350 -475 Intake: Intake, IV Titration 1000 Amount Sodium Chloride 0.9% 1, 1000 000 ml @ 150 mls/hr IV . Q6H40M [facility] Rx#:[id number] Oral 510 250 Output: Urine 850 900 475 Other: Voiding Method Indwelling Catheter Indwelling Catheter Indwelling Catheter # Bowel Movements 1 - Labs CBC & Chem 7: 04/04/22 08:06 04/04/22 08:06 Labs: Abnormal Lab Results - Last 24 Hours (Table) 04/03/22 04/04/22 04/04/22 Range/Units 08:07 08:06 08:06 WBC 14.0 H (3.8-10.6) k/uL Neutrophils # 11.2 H (1.3-7.7) k/uL Potassium 3.0 L (3.5-5.1) mmol/L Chloride 109 H (98-107) mmol/L BUN 5 L (7-17) mg/dL Calcium 7.9 L (8.4-10.2) mg/dL AST 140 H (14-36) U/L ALT 105 H (4-34) U/L Total Protein 5.1 L (6.3-8.2) g/dL Albumin 2.6 L (3.5-5.0) g/dL Procalcitonin 0.82 H (0.02-0.09) ng/mL Microbiology - Last 24 Hours (Table) 03/31/22 13:25 Blood Culture Gram Stain - Final Blood Blood Culture - Final Staphylococcus epidermidis Coagulase Negative Staph 04/01/22 16:28 Blood Culture - Preliminary Blood No Growth after 48 hours
--- NOTE | 2022-04-04 16:56 | P.PN ---
Subjective Progress Note Date: 04/04/22 (delayed charting seen at 1330) Principal diagnosis: found on floor 71-year-old patient with known mood disorder, dyslipidemia, and vitamin D deficiency who presented to the ER after being found down. Her last known well was 48-72 hours. In the ER he underwent an extensive evaluation. She was found to have a white blood cell count of 14.3, BUN 29, AST 644, ALT 185, CPK 2825 with a troponin of 3.8. Chest x-ray showed possible pneumonia. X-rays of hip and pelvis were negative for fracture. X-ray of the shoulder showed arthritis and chronic rotator cuff tendinopathy. CT of the cervical spine showed no acute fracture or dislocation no acute intracranial hemorrhage. She also underwent a chiropractor ultrasound which was suboptimal but showed possible underlying hepatocellular disease. She was started on IV fluids and Unasyn. Cardiology was consulted for elevated troponin. Echocardiogram showed ejection fraction of 45-50% and basal septal hypokinesis. She was found to have staph epi in a blood culture was determined to be a contaminant. Patient seen and examined at bedside. She complains of being tired, she denies any chest pain, shortness breath, nausea, vomiting. Per nursing she has not been eating and drinking much. General: non toxic, no distress, appears at stated age Derm: warm, dry, bruising bilateral lower extremities Head: atraumatic, normocephalic, symmetric Eyes: EOMI, no lid lag, anicteric sclera Mouth: no lip lesion, mucus membranes moist Cardiovascular: S1S2 reg, no murmur, positive posterior tibial pulse bilateral, Lungs: Coarse breath sounds bilateral, no rhonchi, no rales , no accessory muscle use Abdominal: soft, nontender to palpation, no guarding, no appreciable organomegaly Ext: no gross muscle atrophy, 2+ nonpitting edema bilateral lower extremities, no contractures Neuro: CN II-XI grossly intact, no focal neuro deficits Psych: Alert, oriented to self, flat affect Assessment/plan: Rhabdomyolysis Transaminitis related above Mechanical fall, weakness - CPK and liver enzymes improving - decreased IVF - Follow labs closely - repeat liver US as outpatient to assess hepatocellular disease - hold statin until LFTS resolved - PT/OT Aspiration pneumonia -Staph epi and blood culture likely contaminant - Unasyn day #4/5, completed Zithromax Acute toxic/metabolic encephalopathy - supprotive care - treatment as above - check ammonia level in AM Non-ST segment elevated myocardial infarction Compensated systolic cardiomyopathy with ejection fraction 45-50% -Cardiology recommendations: Stress test on 04/07 -Aspirin, metoprolol - Likely would benefit form ACEI if BP increases - Decrease IVF - Check BMP in AM Chronic: Mood disorder Dyslipidemia Asymptomatic bacteriuria, clinically insignificant DVT prophylaxis: Start Heparin Discussed with: Patient, nursing Anticipated discharge: in 3-[address]: rehab A total of 35 minutes was spent on the care of this complex patient more than 50% of the time was spent in counseling and care coordination. Objective - Vital Signs Vital signs: Vital Signs Temp 99.5 F 04/04/22 12:00 Pulse 82 04/04/22 14:00 Resp 18 04/04/22 14:00 BP 134/63 04/04/22 12:00 Pulse Ox 92 L 04/04/22 12:00 Intake & Output 04/03/22 04/04/22 04/04/22 18:59 06:59 18:59 Intake Total 510 1250 Output Total 850 900 875 Balance -340 350 -875 Intake: Intake, IV Titration 1000 Amount Sodium Chloride 0.9% 1, 1000 000 ml @ 150 mls/hr IV . Q6H40M [facility] Rx#:[id number] Oral 510 250 Output: Urine 850 900 875 Other: Voiding Method Indwelling Catheter Indwelling Catheter Indwelling Catheter # Bowel Movements 1 1 - Labs CBC & Chem 7: 04/04/22 08:06 04/04/22 08:06 Labs: Abnormal Lab Results - Last 24 Hours (Table) 04/03/22 04/04/22 04/04/22 Range/Units 08:07 08:06 08:06 WBC 14.0 H (3.8-10.6) k/uL Neutrophils # 11.2 H (1.3-7.7) k/uL Potassium 3.0 L (3.5-5.1) mmol/L Chloride 109 H (98-107) mmol/L BUN 5 L (7-17) mg/dL Calcium 7.9 L (8.4-10.2) mg/dL AST 140 H (14-36) U/L ALT 105 H (4-34) U/L Total Protein 5.1 L (6.3-8.2) g/dL Albumin 2.6 L (3.5-5.0) g/dL Procalcitonin 0.82 H (0.02-0.09) ng/mL Microbiology - Last 24 Hours (Table) 03/31/22 13:25 Blood Culture Gram Stain - Final Blood Blood Culture - Final Staphylococcus epidermidis Coagulase Negative Staph 04/01/22 16:28 Blood Culture - Preliminary Blood No Growth after 48 hours
[2022-04-04] MEDS: HEPARIN SODIUM,PORCINE/PF 5,000 UNIT/0.5 ML SYRINGE SQ SCH (17:32)
[2022-04-04] MEDS: OLANZapine 10 MG TAB PO SCH (20:00)
[2022-04-04] MEDS: ESCITALOPRAM 5 MG TAB PO SCH (20:00)
[2022-04-05] MEDS: AMPICILLIN-SULBACTAM 3 GM in SODIUM CHLORIDE 0.9% 100 ML IVPB SCH ×5 (01:16→23:42)
[2022-04-05] MEDS: HEPARIN SODIUM,PORCINE/PF 5,000 UNIT/0.5 ML SYRINGE SQ SCH ×4 (01:16→23:42)
[2022-04-05 08:18] LABS: HCT 38.7 % (34.0-46.0); HGB 12.4 gm/dL (11.4-16.0); MCH 28.1 pg (25.0-35.0); MCV 87.8 fL (80.0-100.0); Mean Platelet Volume 7.8; Platelet Count 263 k/uL (150-450); RDW 14.5 % (11.5-15.5); WBC 14.8 k/uL (3.8-10.6)
[2022-04-05 08:30] LABS: ALT 110 U/L (4-34); AST 129 U/L (14-36); African American GFR (CKD) >90 (>60 ml/min/1.73 sqM); Albumin 2.8 g/dL (3.5-5.0); Alkaline Phosphatase 99 U/L (38-126); Anion Gap 7 mmol/L; Blood Urea Nitrogen 5 mg/dL (7-17); Calcium 8.3 mg/dL (8.4-10.2); Carbon Dioxide 24 mmol/L (22-30); Chloride 108 mmol/L (98-107); Glucose 102 mg/dL (74-99); Magnesium 1.8 mg/dL (1.6-2.3); Non-African American GFR(CKD) 89 (>60 ml/min/1.73 sqM); Potassium 3.4 mmol/L (3.5-5.1); Sodium 139 mmol/L (137-145); Total Bilirubin 0.5 mg/dL (0.2-1.3); Total Protein 5.4 g/dL (6.3-8.2)
[2022-04-05] MEDS: CALCIUM CARBONATE 500 MG CHEWABLE PO SCH (08:37)
[2022-04-05] MEDS: ASPIRIN 81 MG PO SCH (08:38)
[2022-04-05] MEDS: METOPROLOL SUCCINATE (ER) 25 MG TAB.ER.24H PO SCH (08:38)
[2022-04-05] MEDS: DOCUSATE 100 MG CAP PO SCH (08:38)
[2022-04-05] MEDS: CHOLECALCIFEROL 125 MCG (5000 IU) TABLET PO SCH (08:38)
[2022-04-05 08:54] LABS: Creatine Kinase 1165 U/L (30-135)
[2022-04-05] MEDS ORDERED: POTASSIUM CHLORIDE ER 20 MEQ TAB.ER PO STA (12:46)
--- NOTE | 2022-04-05 12:54 | US ---
EXAMINATION TYPE: US venous doppler duplex LE BI DATE OF EXAM: 04/05/2022 12:12 PM COMPARISON: NONE CLINICAL HISTORY: edema, concern for DVT. SIDE PERFORMED: Bilateral TECHNIQUE: The lower extremity deep venous system is examined utilizing real time linear array sonog mike with graded compression, doppler sonography and color-flow sonography. VESSELS IMAGED: Common Femoral Vein Deep Femoral Vein Greater Saphenous Vein * Femoral Vein Popliteal Vein Small Saphenous Vein * Proximal Calf Veins (* superficial vessels) Technically difficult study, patient difficult to reach, unable to move closer to examiner, unable to abduct legs Right Leg: Negative for DVT Left Leg: Negative for DVT Grayscale, color doppler, spectral doppler imaging performed of the deep veins of the bilateral lower extremities. There is normal flow, compressibility, vascular waveforms. IMPRESSION: Suboptimal study without convincing evidence for acute DVT in either lower extremity.
--- NOTE | 2022-04-05 13:21 | P.PN ---
Subjective HPI: This lady is resting comfortably without symptoms she has no chest pain or shortness of breath. She is speaking to her sister at bedside. She was evaluated by Dr. Christensen and she was tentatively considered for a Lexiscan stress test on Thursday. She has some wall motion abnormalities on the according EKG changes also. Given this I will recommend that she can proceed with a Lexiscan stress test on Thursday. The rationale risks and benefits options explained to the patient.]. PHYSICIAL EXAM: Vital signs stable JVD is not evident no carotid bruit S1 and S2 heard normally. No significant murmurs lungs are clear abdomen is soft and non tender lower extremities reveal diminished pulses. Central nervous system grossly no focal deficits. IMPRESSION: 1. Rhabdomyolysis 2. Abnormal EKG and echocardiogram. RECOMMENDATIONS: Continue current medical regimen and a Lexiscan stress test on Thursday. We will continue to follow.. Objective - Vital Signs Vital signs: Vital Signs Temp 98.7 F 04/04/22 20:00 Pulse 100 04/05/22 08:00 Resp 16 04/05/22 08:00 BP 149/70 04/05/22 08:00 Pulse Ox 92 L 04/05/22 08:00 Intake & Output 04/04/22 04/05/22 04/05/22 18:59 06:59 18:59 Intake Total 1485 120 Output Total 1475 2440 1600 Balance -1475 -955 -1480 Intake: Intake, IV Titration 1000 Amount Sodium Chloride 0.9% 1, 1000 000 ml @ 50 mls/hr IV . Q20H [facility] Rx#:[id number] Oral 485 120 Output: Urine 1475 2440 1600 Other: Voiding Method Indwelling Catheter Indwelling Catheter Indwelling Catheter # Bowel Movements 1 1 - Labs CBC & Chem 7: 04/05/22 07:48 04/05/22 07:48 Labs: Abnormal Lab Results - Last 24 Hours (Table) 04/05/22 04/05/22 Range/Units 07:48 07:48 WBC 14.8 H (3.8-10.6) k/uL Potassium 3.4 L (3.5-5.1) mmol/L Chloride 108 H (98-107) mmol/L BUN 5 L (7-17) mg/dL Glucose 102 H (74-99) mg/dL Calcium 8.3 L (8.4-10.2) mg/dL AST 129 H (14-36) U/L ALT 110 H (4-34) U/L Creatine Kinase 1165 H* (30-135) U/L Total Protein 5.4 L (6.3-8.2) g/dL Albumin 2.8 L (3.5-5.0) g/dL Microbiology - Last 24 Hours (Table) 04/01/22 16:28 Blood Culture - Preliminary Blood No Growth after 72 hours 03/31/22 13:25 Blood Culture Gram Stain - Final Blood Blood Culture - Final Staphylococcus epidermidis Coagulase Negative Staph
--- NOTE | 2022-04-05 15:44 | P.PN ---
Subjective Progress Note Date: 04/05/22 (delayed charting seen at 0820) Principal diagnosis: found on floor 71-year-old patient with known mood disorder, dyslipidemia, and vitamin D deficiency who presented to the ER after being found down. Her last known well was 48-72 hours. In the ER he underwent an extensive evaluation. She was found to have a white blood cell count of 14.3, BUN 29, AST 644, ALT 185, CPK 2825 with a troponin of 3.8. Chest x-ray showed possible pneumonia. X-rays of hip and pelvis were negative for fracture. X-ray of the shoulder showed arthritis and chronic rotator cuff tendinopathy. CT of the cervical spine showed no acute fracture or dislocation no acute intracranial hemorrhage. She also underwent a abdominal ultrasound which was suboptimal but showed possible underlying hepatocellular disease. She was started on IV fluids and Unasyn. Cardiology was consulted for elevated troponin. Echocardiogram showed ejection fraction of 45-50% and basal septal hypokinesis. She was found to have staph epi in a blood culture was determined to be a contaminant. She continued to have slow improvement in her liver function and rhabdo. Patient seen and examined at bedside. She denied chest pain, shortness of breath, nausea. General: non toxic, no distress, appears at stated age Derm: warm, dry, bruising bilateral lower extremities Head: atraumatic, normocephalic, symmetric Eyes: EOMI, no lid lag, anicteric sclera Mouth: no lip lesion, mucus membranes moist Cardiovascular: S1S2 reg, no murmur, positive posterior tibial pulse bilateral, Lungs: Coarse breath sounds bilateral, no rhonchi, no rales , no accessory muscle use Abdominal: soft, nontender to palpation, no guarding, no appreciable organomegaly Ext: no gross muscle atrophy, 2+ nonpitting edema bilateral lower extremities, no contractures Neuro: CN II-XI grossly intact, no focal neuro deficits Psych: Alert, oriented to self, flat affect Assessment/plan: Rhabdomyolysis Transaminitis related above Mechanical fall, weakness - CPK and liver enzymes improving - stop IVF - Follow labs closely - repeat liver US as outpatient to assess hepatocellular disease - hold statin until LFTS resolved - PT/OT Aspiration pneumonia -Staph epi and blood culture likely contaminant - Unasyn day #4/5, completed Zithromax Acute toxic/metabolic encephalopathy - supprotive care - treatment as above - no need to check ammonia as improving Non-ST segment elevated myocardial infarction Compensated systolic cardiomyopathy with ejection fraction 45-50%, mild exacerabtion due to fluids from rhabdo -Cardiology recommendations: Stress test on 04/07 -Aspirin, metoprolol - Likely would benefit form ACEI if BP increases Hypokalemia - replace and recheck Chronic: Mood disorder Dyslipidemia Asymptomatic bacteriuria, clinically insignificant DVT prophylaxis: Start Heparin Discussed with: Patient, nursing Anticipated discharge: in 3-[address]: rehab A total of 35 minutes was spent on the care of this complex patient more than 50% of the time was spent in counseling and care coordination. Objective - Vital Signs Vital signs: Vital Signs Temp 98.7 F 04/04/22 20:00 Pulse 89 04/05/22 12:00 Resp 16 04/05/22 12:00 BP 108/64 04/05/22 12:00 Pulse Ox 93 L 04/05/22 12:00 Intake & Output 04/04/22 04/05/22 04/05/22 18:59 06:59 18:59 Intake Total 1485 360 Output Total 1475 2440 1600 Balance -4852 -990 -5190 Intake: Intake, IV Titration 1000 Amount Sodium Chloride 0.9% 1, 1000 000 ml @ 50 mls/hr IV . Q20H [facility] Rx#:[id number] Oral 485 360 Output: Urine 1475 2440 1600 Other: Voiding Method Indwelling Catheter Indwelling Catheter Indwelling Catheter # Bowel Movements 1 1 - Labs CBC & Chem 7: 04/05/22 07:48 04/05/22 07:48 Labs: Abnormal Lab Results - Last 24 Hours (Table) 04/05/22 04/05/22 Range/Units 07:48 07:48 WBC 14.8 H (3.8-10.6) k/uL Potassium 3.4 L (3.5-5.1) mmol/L Chloride 108 H (98-107) mmol/L BUN 5 L (7-17) mg/dL Glucose 102 H (74-99) mg/dL Calcium 8.3 L (8.4-10.2) mg/dL AST 129 H (14-36) U/L ALT 110 H (4-34) U/L Creatine Kinase 1165 H* (30-135) U/L Total Protein 5.4 L (6.3-8.2) g/dL Albumin 2.8 L (3.5-5.0) g/dL Microbiology - Last 24 Hours (Table) 04/01/22 16:28 Blood Culture - Preliminary Blood No Growth after 72 hours 03/31/22 13:25 Blood Culture Gram Stain - Final Blood Blood Culture - Final Staphylococcus epidermidis Coagulase Negative Staph
[2022-04-05] MEDS: SODIUM CHLORIDE 0.9% 1,000 ML IV SCH (17:12)
[2022-04-05] MEDS: ESCITALOPRAM 5 MG TAB PO SCH (20:24)
[2022-04-05] MEDS: OLANZapine 10 MG TAB PO SCH (20:24)
[2022-04-06] MEDS: AMPICILLIN-SULBACTAM 3 GM in SODIUM CHLORIDE 0.9% 100 ML IVPB SCH ×4 (06:55→23:21)
[2022-04-06 08:22] LABS: HCT 33.6 % (34.0-46.0); HGB 11.1 gm/dL (11.4-16.0); MCH 29.1 pg (25.0-35.0); MCHC 33.1 g/dL (31.0-37.0); MCV 87.7 fL (80.0-100.0); Mean Platelet Volume 8.2; Platelet Count 275 k/uL (150-450); RBC 3.83 m/uL (3.80-5.40); RDW 14.8 % (11.5-15.5); WBC 14.2 k/uL (3.8-10.6)
[2022-04-06 08:36] LABS: African American GFR (CKD) >90 (>60 ml/min/1.73 sqM); Anion Gap 4 mmol/L; Blood Urea Nitrogen 6 mg/dL (7-17); Carbon Dioxide 24 mmol/L (22-30); Chloride 112 mmol/L (98-107); Glucose 106 mg/dL (74-99); Magnesium 1.8 mg/dL (1.6-2.3); Non-African American GFR(CKD) 88 (>60 ml/min/1.73 sqM); Potassium 3.6 mmol/L (3.5-5.1); Sodium 140 mmol/L (137-145)
[2022-04-06] MEDS: ASPIRIN 81 MG PO SCH (09:30)
[2022-04-06] MEDS: CHOLECALCIFEROL 125 MCG (5000 IU) TABLET PO SCH (09:30)
[2022-04-06] MEDS: METOPROLOL TARTRATE 25 MG TAB PO SCH ×3 (09:30→20:38)
[2022-04-06] MEDS: DOCUSATE 100 MG CAP PO SCH (09:30)
[2022-04-06] MEDS: CALCIUM CARBONATE 500 MG CHEWABLE PO SCH (09:30)
[2022-04-06] MEDS: HEPARIN SODIUM,PORCINE/PF 5,000 UNIT/0.5 ML SYRINGE SQ SCH ×3 (09:30→23:21)
--- NOTE | 2022-04-06 10:30 | P.PN ---
Subjective HPI: This lady is resting comfortably without symptoms she has no chest pain or shortness of breath. . She was evaluated by Dr. Christensen and she was tentatively considered for a Lexiscan stress test on Thursday. She has some wall motion abnormalities on the abnormal EKG changes also. Given this I will recommend that she can proceed with a Lexiscan stress test on Thursday. The rationale risks and benefits options explained to the patient.]. PHYSICIAL EXAM: Vital signs stable JVD is not evident no carotid bruit S1 and S2 heard normally. No significant murmurs lungs are clear abdomen is soft and nontender lower extremities reveal diminished pulses. Central nervous system grossly no focal deficits. IMPRESSION: 1. Rhabdomyolysis 2. Abnormal EKG and echocardiogram. RECOMMENDATIONS: Continue current medical regimen and a Lexiscan stress test on Thursday. She is slightly tachycardic I will add a beta tamica. Objective - Vital Signs Vital signs: Vital Signs Temp 98.5 F 04/06/22 09:30 Pulse 79 04/06/22 09:30 Resp 16 04/06/22 09:30 BP 117/74 04/06/22 09:30 Pulse Ox 93 L 04/06/22 09:30 Intake & Output 04/05/22 04/06/22 04/06/22 18:59 06:59 18:59 Intake Total 540 1485 Output Total 1999 1040 Balance -1460 445 Intake: Intake, IV Titration 1000 Amount Sodium Chloride 0.9% 1, 1000 000 ml @ 50 mls/hr IV . Q20H [facility] Rx#:[id number] Oral 540 485 Output: Urine 1999 1040 Other: Voiding Method Indwelling Catheter Indwelling Catheter # Bowel Movements 1 - Labs CBC & Chem 7: 04/06/22 07:43 04/06/22 07:43 Labs: Abnormal Lab Results - Last 24 Hours (Table) 04/06/22 04/06/22 Range/Units 07:43 07:43 WBC 14.2 H (3.8-10.6) k/uL Hgb 11.1 L (11.4-16.0) gm/dL Hct 33.6 L (34.0-46.0) % Chloride 112 H (98-107) mmol/L BUN 6 L (7-17) mg/dL Glucose 106 H (74-99) mg/dL Calcium 8.0 L (8.4-10.2) mg/dL Microbiology - Last 24 Hours (Table) 04/01/22 16:28 Blood Culture - Preliminary Blood No Growth after 96 hours
--- NOTE | 2022-04-06 11:37 | CT ---
EXAMINATION TYPE: CT brain wo con DATE OF EXAM: 04/06/2022 HISTORY: Lt leg weakness CT DLP: 1099.4 mGycm. Automated Exposure Control for Dose Reduction was Utilized. TECHNIQUE: CT scan of the head is performed without contrast. COMPARISON: CT brain 6 days ago. FINDINGS: There is no acute intracranial hemorrhage or midline shift identified. There is mild diff use ventricular and sulcal prominence consistent with diffuse age-related cerebral atrophy. There is more moderate low-attenuation in the periventricular white matter likely product of chronic small ve ssel ischemic change redemonstrated. 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 Opacification in left maxillary sinus is partially imaged. Remainder paranasal sinuses are clear. IMPRESSION: No acute intracranial hemorrhage or midline shift. There is mild diffuse and moderate c hronic small vessel ischemic change and left maxillary sinus disease all redemonstrated. No significa nt change from prior CT.
--- NOTE | 2022-04-06 14:54 | P.PN ---
Subjective Progress Note Date: 04/06/22 (deayed charting seen at 1015) Principal diagnosis: found on floor 71-year-old patient with known mood disorder, dyslipidemia, and vitamin D deficiency who presented to the ER after being found down. Her last known well was 48-72 hours. In the ER he underwent an extensive evaluation. She was found to have a white blood cell count of 14.3, BUN 29, AST 644, ALT 185, CPK 2825 with a troponin of 3.8. Chest x-ray showed possible pneumonia. X-rays of hip and pelvis were negative for fracture. X-ray of the shoulder showed arthritis and chronic rotator cuff tendinopathy. CT of the cervical spine showed no acute fracture or dislocation no acute intracranial hemorrhage. She also underwent a abdominal ultrasound which was suboptimal but showed possible underlying hepatocellular disease. She was started on IV fluids and Unasyn. Cardiology was consulted for elevated troponin. Echocardiogram showed ejection fraction of 45-50% and basal septal hypokinesis. She was found to have staph epi in a blood culture was determined to be a contaminant. She continued to have slow improvement in her liver function and rhabdo. Patient seen and examined at bedside. c/o foot pain on left and weakness on left side. Patient states she is having pain in left ankle. Then after leg is moved no more pain. She initially stated that it was weak but then clarifies that it is painful. General: non toxic, no distress, appears at stated age Derm: warm, dry, bruising bilateral lower extremities Head: atraumatic, normocephalic, symmetric Eyes: EOMI, no lid lag, anicteric sclera Mouth: no lip lesion, mucus membranes moist Cardiovascular: S1S2 reg, no murmur, positive posterior tibial pulse bilateral, Lungs: Coarse breath sounds bilateral, no rhonchi, no rales , no accessory muscle use Abdominal: soft, nontender to palpation, no guarding, no appreciable organomegaly Ext: no gross muscle atrophy,1+ nonpitting edema bilateral lower extremities, no contractures Neuro: CN II-XI grossly intact, no focal neuro deficits, weakness b/l LE with 2/5 hip flexion but 4/5 nuha and plantar flexion. When leg is lifted she can hold up but having pain. Psych: Alert, oriented to self, flat affect, garbled speech. Assessment/plan: Rhabdomyolysis, improved Transaminitis related above Mechanical fall, weakness - CPK and liver enzymes improving - completed fluids - Follow labs closely - repeat liver US as outpatient to assess hepatocellular disease - hold statin until LFTS resolved - PT/OT Left leg pain - weakness appears to be chronic and head CT with chronic changes - recheck hip XR and knee xray Aspiration pneumonia -Staph epi and blood culture likely contaminant - Unasyn day #03/20, completed Zithromax Acute toxic/metabolic encephalopathy - supportive care - treatment as above - no need to check ammonia as improving Non-ST segment elevated myocardial infarction Compensated systolic cardiomyopathy with ejection fraction 45-50%, mild exacerabtion due to fluids from rhabdo -Cardiology recommendations: Stress test on 04/07 -Aspirin, metoprolol - Likely would benefit form ACEI if BP increases Hypokalemia - replace and recheck Chronic: Mood disorder Dyslipidemia Asymptomatic bacteriuria, clinically insignificant DVT prophylaxis: Start Heparin Discussed with: Patient, nursing Anticipated discharge: in 3-[address]: rehab A total of 35 minutes was spent on the care of this complex patient more than 50% of the time was spent in counseling and care coordination. Active Medications Generic Name Dose Route Start Last Admin Trade Name Freq PRN Reason Stop Dose Admin Hydrocodone Bitart/Acetaminophen 1 each 03/31/22 13:14 04/02/22 00:15 Hydrocodone/Apap 5-325mg 1 Each Tab PO 1 each Q4HR PRN Administration Moderate Pain Aminophylline 100 mg 04/07/22 06:00 Aminophylline 500 Mg/20 Ml Vial IV 04/07/22 23:00 ONCE PRN Patient Response Aspirin 81 mg 04/02/22 09:00 04/06/22 09:30 Aspirin 81 Mg PO 81 mg DAILY PIPO Administration Caffeine Citrate 60 mg 04/07/22 06:00 Caffeine Citrate 60 Mg/3 Ml Vial IV 04/07/22 23:00 ONCE PRN Patient Response Calcium Carbonate/Glycine 500 mg 04/01/22 09:00 04/06/22 09:30 Calcium Carbonate 500 Mg Chewable PO 500 mg DAILY PIPO Administration Cholecalciferol 125 mcg 04/01/22 09:00 04/06/22 09:30 Cholecalciferol 125 Mcg (5000 Iu) Tablet PO 125 mcg DAILY PIPO Administration Docusate Sodium 100 mg 04/01/22 09:00 04/06/22 09:30 Docusate 100 Mg Cap PO 100 mg DAILY PIPO Administration Escitalopram Oxalate 5 mg 03/31/22 21:00 04/05/22 20:24 Escitalopram 5 Mg Tab PO 5 mg HS PIPO Administration Heparin Sodium (Porcine) 5,000 unit 04/04/22 17:00 04/06/22 09:30 Heparin Sodium,Porcine/Pf 5,000 Unit/0.5 Ml Syringe SQ 5,000 unit Q8HR PIPO Administration Sodium Chloride 1,000 mls @ 50 mls/hr 03/31/22 15:00 04/05/22 17:12 Saline 0.9% IV 50 mls/hr .Q20H PIPO Administration Ampicillin Sodium/Sulbactam 100 mls @ 200 mls/hr 04/01/22 02:00 04/06/22 13:20 Sodium 3 gm/ Sodium Chloride IVPB 200 mls/hr Q6HR PIPO Administration Protocol Ibuprofen 400 mg 03/31/22 13:14 04/02/22 17:19 Ibuprofen 400 Mg Tab PO 400 mg Q6HR PRN Administration Mild Pain or Fever > 100.5 Metoclopramide HCl 5 mg 03/31/22 13:18 Metoclopramide 5 Mg/Ml 2 Ml Vial IVP Q8H PRN Nausea And Vomiting Metoprolol Tartrate 25 mg 04/06/22 09:15 04/06/22 09:30 Metoprolol Tartrate 25 Mg Tab PO 25 mg TID PIPO Administration Miscellaneous Information 1 each 04/01/22 18:45 Potassium Replacement Protocol 1 Each Misc MISCELLANE DAILY PRN Per Protocol Protocol Naloxone HCl 0.2 mg 03/31/22 13:14 Naloxone 0.4 Mg/Ml 1 Ml Vial IV Q2M PRN Opioid Reversal Olanzapine 20 mg 03/31/22 21:00 04/05/22 20:24 Olanzapine 10 Mg Tab PO 20 mg HS PIPO Administration Oxycodone/Acetaminophen 1 each 03/31/22 13:14 Oxycodone-Apap 5-325mg 1 Each Tab PO Q4HR PRN Severe Pain Polyethylene Glycol 17 gm 03/31/22 15:44 Polyethylene Glycol 3350 17 Gm Powd.Pack PO DAILY PRN Constipation Regadenoson 0.4 mg 04/07/22 06:00 Regadenoson 0.4 Mg/5 Ml Syringe IV 04/07/22 23:00 ONCE PRN Per Protocol Objective - Vital Signs Vital signs: Vital Signs Temp 97.8 F 04/06/22 13:20 Pulse 81 04/06/22 13:20 Resp 18 04/06/22 13:20 BP 109/62 04/06/22 13:20 Pulse Ox 93 L 04/06/22 13:20 Intake & Output 04/05/22 04/06/22 04/06/22 18:59 06:59 18:59 Intake Total 540 1485 50 Output Total 1999 1040 Balance -1460 445 50 Intake: Intake, IV Titration 1000 Amount Sodium Chloride 0.9% 1, 1000 000 ml @ 50 mls/hr IV . Q20H [facility] Rx#:[id number] Oral 540 485 50 Output: Urine 1999 1040 Other: Voiding Method Indwelling Catheter Indwelling Catheter Indwelling Catheter # Bowel Movements 1 - Labs CBC & Chem 7: 04/06/22 07:43 04/06/22 07:43 Labs: Abnormal Lab Results - Last 24 Hours (Table) 04/06/22 04/06/22 Range/Units 07:43 07:43 WBC 14.2 H (3.8-10.6) k/uL Hgb 11.1 L (11.4-16.0) gm/dL Hct 33.6 L (34.0-46.0) % Chloride 112 H (98-107) mmol/L BUN 6 L (7-17) mg/dL Glucose 106 H (74-99) mg/dL Calcium 8.0 L (8.4-10.2) mg/dL Microbiology - Last 24 Hours (Table) 04/01/22 16:28 Blood Culture - Preliminary Blood No Growth after 96 hours
--- NOTE | 2022-04-06 16:15 | XR ---
EXAMINATION TYPE: XR Hip Complete LT DATE OF EXAM: 04/06/2022 3:32 PM INDICATION: Patient age:Female; 71 years old; Reason for study: pain, fall; . COMPARISON: None. TECHNIQUE: The left hip was examined in the frontal and lateral projections and a AP pelvis. FINDINGS: No evidence of any acute osseous pathology, joint dislocation, or soft tissue swelling. IMPRESSION: No acute osseous pathology.
--- NOTE | 2022-04-06 16:17 | XR ---
EXAMINATION TYPE: XR knee complete LT DATE OF EXAM: 04/06/2022 3:32 PM INDICATION: Patient age:Female; 71 years old; Reason for study: pain, fall; COMPARISON: None. TECHNIQUE: The Left knee(s) was examined in 3 projections. FINDINGS: No evidence of any acute osseous pathology, joint space narrowing, soft tissue swelling. Tibial plateau osteophyte formation. A fabella is present. There is a joint effusion present. IMPRESSION: 1. No acute osseous pathology. 2. Mild tricompartmental osteoarthritic changes. 3. Moderate left knee joint effusion
[2022-04-06] MEDS: SODIUM CHLORIDE 0.9% 1,000 ML IV SCH (18:01)
[2022-04-06] MEDS: IBUPROFEN 400 MG TAB PO PRN (20:37)
[2022-04-06] MEDS: ESCITALOPRAM 5 MG TAB PO SCH (20:38)
[2022-04-06] MEDS: OLANZapine 10 MG TAB PO SCH (20:40)
[2022-04-07] MEDS ORDERED: REGADENOSON 0.4 MG/5 ML SYRINGE IV PRN (06:00)
[2022-04-07] MEDS ORDERED: CAFFEINE CITRATE 60 MG/3 ML VIAL IV PRN (06:00)
[2022-04-07] MEDS ORDERED: AMINOPHYLLINE 500 MG/20 ML VIAL IV PRN (06:00)
[2022-04-07] MEDS: AMPICILLIN-SULBACTAM 3 GM in SODIUM CHLORIDE 0.9% 100 ML IVPB SCH ×2 (06:16→12:48)
[2022-04-07 07:20] LABS: HGB 11.6 gm/dL (11.4-16.0); MCH 28.8 pg (25.0-35.0); MCHC 32.2 g/dL (31.0-37.0); MCV 89.2 fL (80.0-100.0); Platelet Count 256 k/uL (150-450); RBC 4.03 m/uL (3.80-5.40); RDW 14.8 % (11.5-15.5); WBC 13.5 k/uL (3.8-10.6)
[2022-04-07 07:35] LABS: ALT 66 U/L (4-34); AST 54 U/L (14-36); African American GFR (CKD) >90 (>60 ml/min/1.73 sqM); Albumin 2.6 g/dL (3.5-5.0); Alkaline Phosphatase 94 U/L (38-126); Anion Gap 7 mmol/L; Blood Urea Nitrogen 6 mg/dL (7-17); Calcium 8.3 mg/dL (8.4-10.2); Carbon Dioxide 22 mmol/L (22-30); Chloride 110 mmol/L (98-107); Glucose 95 mg/dL (74-99); Non-African American GFR(CKD) 85 (>60 ml/min/1.73 sqM); Potassium 3.8 mmol/L (3.5-5.1); Sodium 139 mmol/L (137-145); Total Bilirubin 0.4 mg/dL (0.2-1.3); Total Protein 5.3 g/dL (6.3-8.2)
[2022-04-07] MEDS: METOPROLOL TARTRATE 25 MG TAB PO SCH ×4 (07:54→20:16)
[2022-04-07 09:45] VITALS: BMI 30.7
--- NOTE | 2022-04-07 12:05 | P.PN ---
Subjective Progress Note Date: 04/07/22 HISTORY OF PRESENT ILLNESS: This is a 71-year-old female with a past medical history significant for mood disorder and hyperlipidemia. Patient does not follow with a pit recorder. We have been asked to see the patient in consultation for abnormal troponins. Patient examined at the bedside. Patient is a poor historian and is unable to provide much HPI. Apparently, the patients family had requested a wellness check after not being able to get in contact with the patient for the past 2-3 days. The patient was found found on the floor. The patient was estimated to be laying on the floor for 2-3 days. The patient was conscious when she was found. Apparently the patient was also found to be covered in urine and feces. Initially when talking to the patient she stated she had been having chest pain for the past week. However when the patient was asked again if she was having chest pain, she stated that she was not having chest pain and did not have any chest pain in the past. She denies having any shortness of breath. Denies dizziness or lightheadedness. The patient was found to have rhabdomyolysis and also elevated troponins. She was started on IV heparin. * EKG reveals sinus mechanism with no signs of acute ischemia. Left axis deviation. * Chest xray left perihilar and lower lobe subsegmental atelectasis or infiltrate * Laboratory data: WBC 9.4. Hemoglobin 12.6. Platelet count 193. Sodium 146. Potassium 3.9. BUN 29. Creatinine 0.99. Lactic acid 0.8. Creatinine kinase 22,825. Troponin 3.820. 2.820. 2.670. * Current home cardiac medications include Lipitor 10 mg daily 04/02/2022 Patient examined this morning at the bedside. Patient was restless overnight per nursing and pulled out 2 IVs. She was given IV Ativan. She is somewhat lethargic this morning and is unable to answer questions. Per nursing, the patient had no complaints of chest pain, pressure, or shortness of breath overnight. She remains on IV heparin. 04/03/2022 Patient examined this point the bedside. Patient remains somewhat lethargic. No complaints of chest pain or shortness of breath. Echocardiogram completed revealing ejection fraction 45-50%, basal septal hypokinesis, basal and mid anterior wall hypokinesis, basal inferior lateral wall hypokinesis, mild mitral regurgitation, and mild tricuspid regurgitation 04/04/2022 Patient examined this morning at the bedside. Patient is somewhat more awake today however she remains confused. No complaints of chest pain or pressure. No complaints of shortness of breath. Vital signs are stable. 04/07/2022 Patient examined this morning at the bedside. Patient remains confused. She denies chest pain or pressure. Denies shortness of breath. She is scheduled to undergo Lexiscan stress test this morning. PHYSICAL EXAM: VITAL SIGNS: Reviewed. GENERAL: Well-developed in no acute distress. HEENT: Bruising noted to right side of face. Head is normocephalic. Pupils are equal, round. Sclerae anicteric. Mucous membranes of the mouth are moist. Neck supple. No JVD or thyromegaly LUNGS: Respirations even and unlabored. Lungs essentially clear to auscultation bilaterally. HEART: Regular rate and rhythm. S1 and S2 heard. EXTREMITIES: Normal range of motion. No clubbing or cyanosis. Peripheral pulses intact. No lower extremity edema ASSESSMENT: Rhabdomyolysis, patient found laying down for 2-3 days Aspiration pneumonia Abnormal troponins, suspect secondary to rhabdomyolysis Mild cardiomyopathy with LV wall hypokinesis, etiology unclear Transaminitis Mood disorder Hyperlipidemia PLAN: Continue current cardiac medications Continue with medical management Lexiscan stress test ordered today to rule out underlying CAD secondary to abnormal echocardiogram Further recommendations pending patient's course Nurse practitioner note has been reviewed by physician. Signing provider agrees with the documented findings, assessment, and plan of care. Objective - Vital Signs Vital signs: Vital Signs Temp 98.3 F 04/07/22 04:00 Pulse 80 04/07/22 08:00 Resp 18 04/07/22 08:00 BP 118/74 04/07/22 04:00 Pulse Ox 95 04/07/22 04:00 FiO2 Intake & Output 04/06/22 04/07/22 04/07/22 18:59 06:59 18:59 Intake Total 50 Output Total 650 1200 800 Balance -600 -1200 -800 Weight 83.915 kg Intake: Oral 50 Output: Urine 650 1200 800 Other: Voiding Method Indwelling Catheter Indwelling Catheter Indwelling Catheter - Labs CBC & Chem 7: 04/07/22 06:31 04/07/22 06:31 Labs: Abnormal Lab Results - Last 24 Hours (Table) 04/07/22 04/07/22 Range/Units 06:31 06:31 WBC 13.5 H (3.8-10.6) k/uL Chloride 110 H (98-107) mmol/L BUN 6 L (7-17) mg/dL Calcium 8.3 L (8.4-10.2) mg/dL AST 54 H (14-36) U/L ALT 66 H (4-34) U/L Total Protein 5.3 L (6.3-8.2) g/dL Albumin 2.6 L (3.5-5.0) g/dL Microbiology - Last 24 Hours (Table) 04/01/22 16:28 Blood Culture - Preliminary Blood No Growth after 120 hours
[2022-04-07] MEDS: CALCIUM CARBONATE 500 MG CHEWABLE PO SCH (12:47)
[2022-04-07] MEDS: CHOLECALCIFEROL 125 MCG (5000 IU) TABLET PO SCH (12:47)
[2022-04-07] MEDS: HEPARIN SODIUM,PORCINE/PF 5,000 UNIT/0.5 ML SYRINGE SQ SCH ×2 (12:47→17:53)
[2022-04-07] MEDS: DOCUSATE 100 MG CAP PO SCH (12:47)
[2022-04-07] MEDS: ASPIRIN 81 MG PO SCH (12:47)
--- NOTE | 2022-04-07 12:49 | NM ---
EXAMINATION TYPE: NM stress lexiscan cardiolite DATE OF EXAM: 04/07/2022 COMPARISON: NONE HISTORY: Chest pain TECHNIQUE: After the intravenous administration of 9.62 mCi Tc 99m Sestamibi - Cardiolite resting SP ECT images acquired 50 minutes post injection. The patient received 0.4mg Lexiscan, 25 mCi Tc 99m Sestamibi - Stress images obtained 50 minutes post injection FINDINGS: Review of stress and rest SPECT images demonstrates no distinct perfusion abnormality. Gated analysi s shows possible paradoxical apical wall motion with an estimated left ventricular ejection fraction of 53 %. IMPRESSION: No scintigraphic evidence for reversible ischemia. Consider echocardiographic correlation for wall mo tion abnormality.
[2022-04-07] MEDS ORDERED: FUROSEMIDE 10 MG/ML 4 ML VIAL IV STA (14:36)
--- NOTE | 2022-04-07 16:04 | P.PN ---
Subjective Progress Note Date: 04/07/22 Principal diagnosis: found on floor 71-year-old patient with known mood disorder, dyslipidemia, and vitamin D deficiency who presented to the ER after being found down. Her last known well was 48-72 hours. In the ER he underwent an extensive evaluation. She was found to have a white blood cell count of 14.3, BUN 29, AST 644, ALT 185, CPK 2825 with a troponin of 3.8. Chest x-ray showed possible pneumonia. X-rays of hip and pelvis were negative for fracture. X-ray of the shoulder showed arthritis and chronic rotator cuff tendinopathy. CT of the cervical spine showed no acute fracture or dislocation no acute intracranial hemorrhage. She also underwent a abdominal ultrasound which was suboptimal but showed possible underlying hepatocellular disease. She was started on IV fluids and Unasyn. Cardiology was consulted for elevated troponin. Echocardiogram showed ejection fraction of 45-50% and basal septal hypokinesis. She was found to have staph epi in a blood culture was determined to be a contaminant. She continued to have slow improvement in her liver function and rhabdo. She underwent and a Lexiscan stress test which came back negative. She did develop exacerbation of her congestive heart failure and Lasix was initiated. Patient seen and examined at bedside. Pain and weakness on her left side has resolved. She denies feeling short of breath. She denies any chest pain. General: non toxic, no distress, appears at stated age Derm: warm, dry, bruising bilateral lower extremities Head: atraumatic, normocephalic, symmetric Eyes: EOMI, no lid lag, anicteric sclera Mouth: no lip lesion, mucus membranes moist Cardiovascular: S1S2 reg, no murmur, positive posterior tibial pulse bilateral, Lungs: Coarse breath sounds bilateral, no rhonchi, no rales , no accessory muscle use, + tachypnea Abdominal: soft, nontender to palpation, no guarding, no appreciable organomegaly Ext: no gross muscle atrophy,1+ nonpitting edema bilateral lower extremities, + contractures flexion b/l LE Neuro: CN II-XI grossly intact Psych: Alert, oriented to self, flat affect, garbled speech. Assessment/plan: Rhabdomyolysis, improved Transaminitis related above Mechanical fall, weakness - CPK and liver enzymes resolved - completed fluids - Follow labs closely - repeat liver US as outpatient to assess hepatocellular disease - hold statin until LFTS resolved - PT/OT Left leg pain - weakness appears to be chronic and head CT with chronic changes - recheck hip XR and knee xray Aspiration pneumonia -Staph epi and blood culture likely contaminant - completed Zithromax and Unasyn Acute toxic/metabolic encephalopathy - supportive care - treatment as above - no need to check ammonia as improving Non-ST segment elevated myocardial infarction Compensated systolic cardiomyopathy with ejection fraction 45-50%, mild exacerabtion due to fluids from rhabdo - IV lasix BID - Cardiology recommendations appreciated - Aspirin, metoprolol - Likely would benefit form ACEI if BP increases Hypokalemia - replace and recheck Chronic: Mood disorder Dyslipidemia Asymptomatic bacteriuria, clinically insignificant DVT prophylaxis: Heparin Discussed with: Patient, nursing Anticipated discharge: in AM Anticipated discharge place: rehab A total of 35 minutes was spent on the care of this complex patient more than 50% of the time was spent in counseling and care coordination. Active Medications Generic Name Dose Route Start Last Admin Trade Name Freq PRN Reason Stop Dose Admin Hydrocodone Bitart/Acetaminophen 1 each 03/31/22 13:14 04/02/22 00:15 Hydrocodone/Apap 5-325mg 1 Each Tab PO 1 each Q4HR PRN Administration Moderate Pain Aminophylline 100 mg 04/07/22 06:00 Aminophylline 500 Mg/20 Ml Vial IV 04/07/22 23:00 ONCE PRN Patient Response Aspirin 81 mg 04/02/22 09:00 04/07/22 12:47 Aspirin 81 Mg PO 81 mg DAILY PIPO Administration Caffeine Citrate 60 mg 04/07/22 06:00 Caffeine Citrate 60 Mg/3 Ml Vial IV 04/07/22 23:00 ONCE PRN Patient Response Calcium Carbonate/Glycine 500 mg 04/01/22 09:00 04/07/22 12:47 Calcium Carbonate 500 Mg Chewable PO 500 mg DAILY PIPO Administration Cholecalciferol 125 mcg 04/01/22 09:00 04/07/22 12:47 Cholecalciferol 125 Mcg (5000 Iu) Tablet PO 125 mcg DAILY PIPO Administration Docusate Sodium 100 mg 04/01/22 09:00 04/07/22 12:47 Docusate 100 Mg Cap PO 100 mg DAILY PIPO Administration Escitalopram Oxalate 5 mg 03/31/22 21:00 04/06/22 20:38 Escitalopram 5 Mg Tab PO 5 mg HS PIPO Administration Furosemide 40 mg 04/07/22 21:00 Furosemide 10 Mg/Ml 4 Ml Vial IV Q12HR PIPO Heparin Sodium (Porcine) 5,000 unit 04/04/22 17:00 04/07/22 12:47 Heparin Sodium,Porcine/Pf 5,000 Unit/0.5 Ml Syringe SQ 5,000 unit Q8HR PIPO Administration Sodium Chloride 1,000 mls @ 50 mls/hr 03/31/22 15:00 04/06/22 18:01 Saline 0.9% IV 50 mls/hr .Q20H PIPO Administration Ampicillin Sodium/Sulbactam 100 mls @ 200 mls/hr 04/01/22 02:00 04/07/22 12:48 Sodium 3 gm/ Sodium Chloride IVPB 200 mls/hr Q6HR PIPO Administration Protocol Ibuprofen 400 mg 03/31/22 13:14 04/06/22 20:37 Ibuprofen 400 Mg Tab PO 400 mg Q6HR PRN Administration Mild Pain or Fever > 100.5 Metoclopramide HCl 5 mg 03/31/22 13:18 Metoclopramide 5 Mg/Ml 2 Ml Vial IVP Q8H PRN Nausea And Vomiting Metoprolol Tartrate 25 mg 04/06/22 09:15 04/07/22 12:47 Metoprolol Tartrate 25 Mg Tab PO 25 mg TID PIPO Administration Miscellaneous Information 1 each 04/01/22 18:45 Potassium Replacement Protocol 1 Each Misc MISCELLANE DAILY PRN Per Protocol Protocol Naloxone HCl 0.2 mg 03/31/22 13:14 Naloxone 0.4 Mg/Ml 1 Ml Vial IV Q2M PRN Opioid Reversal Olanzapine 20 mg 03/31/22 21:00 04/06/22 20:40 Olanzapine 10 Mg Tab PO 20 mg HS PIPO Administration Oxycodone/Acetaminophen 1 each 03/31/22 13:14 Oxycodone-Apap 5-325mg 1 Each Tab PO Q4HR PRN Severe Pain Polyethylene Glycol 17 gm 03/31/22 15:44 Polyethylene Glycol 3350 17 Gm Powd.Pack PO DAILY PRN Constipation Regadenoson 0.4 mg 04/07/22 06:00 Regadenoson 0.4 Mg/5 Ml Syringe IV 04/07/22 23:00 ONCE PRN Per Protocol Objective - Vital Signs Vital signs: Vital Signs Temp 98.3 F 04/07/22 04:00 Pulse 80 04/07/22 08:00 Resp 18 04/07/22 08:00 BP 118/74 04/07/22 04:00 Pulse Ox 95 04/07/22 04:00 FiO2 Intake & Output 04/06/22 04/07/22 04/07/22 18:59 06:59 18:59 Intake Total 50 480 Output Total 650 1200 801 Balance -600 -1200 -321 Weight 83.915 kg Intake: Oral 50 480 Output: Urine 650 1200 800 Stool 1 Other: Voiding Method Indwelling Catheter Indwelling Catheter Indwelling Catheter - Labs CBC & Chem 7: 04/07/22 06:31 04/07/22 06:31 Labs: Abnormal Lab Results - Last 24 Hours (Table) 04/07/22 04/07/22 Range/Units 06:31 06:31 WBC 13.5 H (3.8-10.6) k/uL Chloride 110 H (98-107) mmol/L BUN 6 L (7-17) mg/dL Calcium 8.3 L (8.4-10.2) mg/dL AST 54 H (14-36) U/L ALT 66 H (4-34) U/L Total Protein 5.3 L (6.3-8.2) g/dL Albumin 2.6 L (3.5-5.0) g/dL Microbiology - Last 24 Hours (Table) 04/01/22 16:28 Blood Culture - Preliminary Blood No Growth after 120 hours
--- NOTE | 2022-04-07 18:05 | CA ---
Lexiscan Nuclear Stress Test Report Name: Smitha Khan Exam Date: 04/07/2022 10:08 Exam Location: [facility] Stress Ht (in): 65 Wt (lb): 185 BSA: 1.91 Ordering Phys: Magda Mar Referring Phys: LAUREN, Technologist: Bakair Dey Age: 71 Gender: F : 1950 Procedure CPT: Indications: Reflex order-Stress test ICD-10 Codes: Patient History: ELEVATED LFT'S, PNEUMONIA, ELEVATED TROPONINS Medications: SEE CHART Meds past 24 hrs: Pretest Chest Pain: STRESS TEST Lexiscan Protocol Exercise Duration (min:sec): 02:[address] Depressions (mm): Angina Score: Moore Score: Resting HR (bpm): 89 Peak HR (bpm): 111 Resting BP (mmHg): 121 / 65 Peak BP (mmHg): 139 / 59 MPHR: 147 Target HR: 125 % MPHR: 76 METS: 1.0 Total Dose: Peak Dose: Atropine: Double Product: 76249 BP Response: Stress Termination: N/A Stress Symptoms: NO SYMPTOMS Stress Summary: ECG ANALYSIS Resting ECG: Stress ECG: CONCLUSIONS Baseline heart rate 86 beats a minute, Baseline blood pressure 121/65 mmHg Peak heart rate 110 beats a minute Normal blood pressure response Normal EKG at baseline No ECG evidence of ischemia Nuclear portion will be reported separately Dr. Rebel Melchor MD (Electronically Signed) Final Date: 07 Apr 2022 18:04
[2022-04-07] MEDS: ESCITALOPRAM 5 MG TAB PO SCH (20:17)
[2022-04-07] MEDS: OLANZapine 10 MG TAB PO SCH (20:17)
[2022-04-07] MEDS ORDERED: FUROSEMIDE 10 MG/ML 4 ML VIAL IV SCH (21:00)
[2022-04-08] MEDS: HEPARIN SODIUM,PORCINE/PF 5,000 UNIT/0.5 ML SYRINGE SQ SCH ×2 (02:20→09:21)
[2022-04-08] MEDS: SODIUM CHLORIDE 0.9% 1,000 ML IV SCH (02:20)
[2022-04-08 04:03] VITALS: TEMP 98.1
[2022-04-08] MEDS ORDERED: FUROSEMIDE 40 MG TAB PO SCH (09:15)
[2022-04-08 09:17] LABS: HGB 11.2 gm/dL (11.4-16.0); MCH 28.2 pg (25.0-35.0); MCV 88.1 fL (80.0-100.0); Mean Platelet Volume 8.1; Platelet Count 291 k/uL (150-450); RBC 3.97 m/uL (3.80-5.40); RDW 14.6 % (11.5-15.5); WBC 15.8 k/uL (3.8-10.6)
[2022-04-08] MEDS: CALCIUM CARBONATE 500 MG CHEWABLE PO SCH (09:20)
[2022-04-08] MEDS: CHOLECALCIFEROL 125 MCG (5000 IU) TABLET PO SCH (09:20)
[2022-04-08] MEDS: DOCUSATE 100 MG CAP PO SCH (09:20)
[2022-04-08] MEDS: METOPROLOL TARTRATE 25 MG TAB PO SCH (09:22)
--- NOTE | 2022-04-08 09:24 | P.DS ---
Providers Date of admission: 03/31/22 13:57 Expected date of discharge: 04/08/22 Attending physician: Meenakshi Cortez MD Consults: 03/31/22 13:15 Consult Physician Urgent Consulting Provider: Santosh Christensen Consult Reason/Comments: Elevated troponin, no cardiac history Do you want consulting provider notified?: Yes Primary care physician: Stated None Hospital Course: Discharge Diagnosis: Rhabdomyolysis, improved Transaminitis related to above Mechanical fall, weakness Left leg pain, resolved Aspiration pneumonia Acute toxic/metabolic encephalopathy Non-ST segment elevated myocardial infarction Acute exacerbation of systolic cardiomyopathy with ejection fraction 45-50% Hypokalemia Mood disorder Dyslipidemia Asymptomatic bacteriuria, clinically insignificant Hospital Course: Patient is a 71-year-old patient with known mood disorder, dyslipidemia, and vitamin D deficiency who presented to the ER after being found down. Her last known well was 48-72 hours. In the ER he underwent an extensive evaluation. She was found to have a white blood cell count of 14.3, BUN 29, AST 644, ALT 185, CPK 2825 with a troponin of 3.8. Chest x-ray showed possible pneumonia. X-rays of hip and pelvis were negative for fracture. X-ray of the shoulder showed arthritis and chronic rotator cuff tendinopathy. CT of the cervical spine showed no acute fracture or dislocation no acute intracranial hemorrhage. She also underwent a abdominal ultrasound which was suboptimal but showed possible underlying hepatocellular disease. She was started on IV fluids and Unasyn. Cardiology was consulted for elevated troponin. Echocardiogram showed ejection fraction of 45-50% and basal septal hypokinesis. She was found to have staph epi in a blood culture was determined to be a contaminant. She continued to have slow improvement in her liver function and rhabdo. She underwent and a Lexiscan stress test which came back negative. She did develop exacerbation of her congestive heart failure and Lasix was initiated. She improved. We attempted a voiding trail but she did not tolerated and grayson was restarted. Her breathing improved and she was determined stable for discharge. Follow-up: Dr Christensen in 1 weeks, Dr Chavez for voiding trial in 1 week, CBC and CMP in 1 week, maintain grayson Patient seen and examined at bedside. Doing well, no complaints today, no nausea, no vomiting, breathing good no chest pain. Vital signs reviewed and stable. General: non toxic, no distress, appears at stated age Derm: warm, dry, bruising bilateral lower extremities Head: atraumatic, normocephalic, symmetric Eyes: EOMI, no lid lag, anicteric sclera Mouth: no lip lesion, mucus membranes moist Cardiovascular: S1S2 reg, no murmur, positive posterior tibial pulse bilateral, Lungs: Coarse breath sounds bilateral, no rhonchi, no rales , no accessory muscle use, + tachypnea Abdominal: soft, nontender to palpation, no guarding, no appreciable organomegaly Ext: no gross muscle atrophy,1+ nonpitting edema bilateral lower extremities, + contractures flexion b/l LE Neuro: CN II-XI grossly intact Psych: Alert, oriented to self and place, flat affect, garbled speech. A total of 35 minutes of time were spent preparing this complex discharge summary . Plan - Discharge Summary Discharge Rx Participant: No New Discharge Prescriptions: New Furosemide [Lasix] 40 mg PO DAILY #3 tab Metoprolol Tartrate [Lopressor] 25 mg PO TID tab Ibuprofen [Motrin] 400 mg PO Q6HR PRN tab PRN Reason: Mild Pain Or Fever > 100.5 Continue Calcium Carbonate [Calcium] 600 mg PO DAILY Escitalopram [Lexapro] 5 mg PO HS Atorvastatin Calcium [Lipitor] 10 mg PO DAILY Polyethylene Glycol 3350 [Miralax] 17 gm PO DAILY PRN PRN Reason: Constipation Cholecalciferol [Vitamin D3 (125 Mcg = 5000 Iu)] 125 mcg PO DAILY OLANZapine 20 mg PO HS Docusate [Colace] 100 mg PO DAILY Discharge Medication List Calcium Carbonate [Calcium] 600 mg PO DAILY 10/06/17 [History] Escitalopram [Lexapro] 5 mg PO HS 10/06/17 [History] Atorvastatin Calcium [Lipitor] 10 mg PO DAILY 06/17/18 [History] Cholecalciferol [Vitamin D3 (125 Mcg = 5000 Iu)] 125 mcg PO DAILY 03/31/22 [History] Docusate [Colace] 100 mg PO DAILY 03/31/22 [History] OLANZapine 20 mg PO HS 03/31/22 [History] Polyethylene Glycol 3350 [Miralax] 17 gm PO DAILY PRN 03/31/22 [History] Furosemide [Lasix] 40 mg PO DAILY #3 tab 04/08/22 [Rx] Ibuprofen [Motrin] 400 mg PO Q6HR PRN tab 04/08/22 [Rx] Metoprolol Tartrate [Lopressor] 25 mg PO TID tab 04/08/22 [Rx] Follow up Appointment(s)/Referral(s): None,Stated [Primary Care Provider] - 1-2 days Santosh Christensen DO [STAFF PHYSICIAN] - 1 Week Vikas Hernandez MD [STAFF PHYSICIAN] - 1 Week Activity/Diet/Wound Care/Special Instructions: Activity: as tolerated, Fall precautions Diet: Heart healthy Special Instructions: Grayson cath for urinary retention CBC and CMP in 1 week DX: leukocytosis, transaminitis Strict I and O Discharge Disposition: HOME SELF-CARE
[2022-04-08 09:34] LABS: Calcium 8.6 mg/dL (8.4-10.2); Potassium 3.3 mmol/L (3.5-5.1)
[2022-04-08 10:04] VITALS: RESP 16
[2022-04-08] MEDS ORDERED: Potassium Replacement Protocol 1 EACH MISC MISCELLANE PRN (10:20)
[2022-04-08] MEDS: POTASSIUM CHLORIDE ER 20 MEQ TAB.ER PO SCH ×2 (10:25→10:26)
--- NOTE | 2022-04-08 10:40 | CDI ---
Documentation Clarification Form Date: 04/08/2022 10:19:51 AM From: Lisa Ziegler CCS, CCDS Admit Date: 03/31/2022 01:57:00 PM Patient Name: Smitha Khan Visit Number: [id number] Discharge Date: ATTENTION: The Clinical Documentation Specialists (CDI) and [facility] Coding Staff appreciate your assistance in clarifying documentation. Please respond to the clarification below the line at the bottom and electronically sign. The CDI & [facility] Coding staff will review the response and follow-up if needed. Please note: Queries are made part of the Legal Health Record. If you have any questions, please contact the author of this message via ITS. Dr. Becki Lobo: Per the 04/08 Discharge Summary, the Discharge Diagnoses are: Rhabdomyolysis. Transaminitis related to above (Rhabdomyolysis). Mechanical Fall, Weakness. Left Leg Pain: resolved. Aspiration Pneumonia. Acute Toxic/Metabolic Encephalopathy. NSTEMI. Acute Exacerbation of Systolic Cardiomyopathy w/EF 45-50%. Hypokalemia. Asymptomatic Bacteriuria, clinically insignificant. Per the 04/01 Cardiology Consult Assessment: Rhabdomyolysis. Aspiration Pneumonia. Abnormal troponins, suspect secondary to Rhabdomyolysis. Ordered ECHO, IV Heparin until ECHO completed. On 04/04 Cardiology ordered a Stress Test. Per the 04/07 Cardiology Progress Note: Lexiscan negative for ischemia. Assessment: Abnormal troponins, suspect secondary to rhabdomyolysis. Additional clarification regarding the diagnosis of NSTEMI is requested. History/Risk Factors per the 03/31 H/P: Mood Disorder, Hyperlipidemia. Clinical Indicators: Presented to the ED on 03/31 via EMS after a fall at home & was found lying on the floor after 2-3 days. Admitted with Pneumonia, Elevated Troponin, Elevated Liver Enzymes and Rhabdomyolysis. 03/31 VS: T 98.0, P 94, R 16, BP 108/71, PO 98 RA, BMI: 30.8 03/31 LAB: WBC 14.3, Neutrophils 12.1; APTT 18.2; Na 146, Chloride 113, BUN 29, Glucose 110, AST 644, ALT 185, Creatine Kinase 55524, Troponin 3.820, 2.820, 2.670. 03/31 CXR: Left perihilar and lower lobe subsegmental atelectasis or infiltrate. 03/31 ECHO: Normal left ventricular dimension and systolic function. EF 45-50%. Mild MR, Mild TR. Minimal pericardial effusion. Treatment 03/31: Heparin Drip, Fungal & Sputum Cultures, IV Na Cl 1,000 mls @ 999 mls/hr q1H x2, IV Rocephin 50 mls @ 100 mls/hr x1, IV Azithromycin 250 mls @ 250 mls/hr x1, po [place], po Motrin, po Aspirin. Can you please clarify the following regarding the diagnosis of NSTEMI: [ ] NSTEMI ruled in, present on admission [ ] NSTEMI ruled in, not present on admission [ ] NSTEMI ruled out [ ] Other, please specify: [ ] Unable to determine (Template Last Revised: January 2021) NSTEMI ruled in and present on admission MTDD
[2022-04-08 12:49] VITALS: BP 100/65; PULSE 80
== END 2022-04-08 13:36 | DRG 280 ==
LOC: EC 09:56 → 3SCARD 13:57
PROVIDERS: ADMIT Internal Medicine; ATTEND Internal Medicine
DX: I21.4 Non-ST elevation (NSTEMI) myocardial infarction (principal); G92.8 Other toxic encephalopathy; J69.0 Pneumonitis due to inhalation of food and vomit; I50.23 Acute on chronic systolic (congestive) heart failure; F05 Delirium due to known physiological condition; I42.8 Other cardiomyopathies; J98.11 Atelectasis; M62.82 Rhabdomyolysis; M19.012 Primary osteoarthritis, left shoulder; R74.01 Elevation of levels of liver transaminase levels; M19.011 Primary osteoarthritis, right shoulder; E86.0 Dehydration; E87.6 Hypokalemia; I08.1 Rheumatic disorders of both mitral and tricuspid valves; M79.605 Pain in left leg; F39 Unspecified mood [affective] disorder; K59.00 Constipation, unspecified; E78.5 Hyperlipidemia, unspecified; E55.9 Vitamin D deficiency, unspecified; B35.6 Tinea cruris; M19.90 Unspecified osteoarthritis, unspecified site; W18.30XA Fall on same level, unspecified, initial encounter; Z66 Do not resuscitate; Z20.822 Contact with and (suspected) exposure to COVID-19; Z79.899 Other long term (current) drug therapy; Z28.310 Unvaccinated for COVID-19; Z78.1 Physical restraint status
CPT/HCPCS: 36415; 70450; 71045; 71046; 72125; 73502; 73521; 76705; 78452; 80048; 80053; 80076; 81001; 82550; 82553; 83605; 83735; 83880; 84132; 84145; 84484; 85025; 85027; 85610; 85730; 87040; 87102; 87502; 87635; 93005; 93017; 93306; 93970; 96361; 96365; 96368; 96375; 99285

== ENCOUNTER 2025-05-07 02:31 | Inpatient (IN) | payer MEDICARE, OTHER ==
--- NOTE | 2025-05-07 02:43 | ED ---
Fever HPI - General Stated Complaint: Fever Time Seen by Provider: 05/07/25 02:36 Source: RN notes reviewed, old records reviewed Mode of arrival: ambulatory Limitations: no limitations, altered mental status (Dementia) - History of Present Illness Initial Comments: This is a 74-year-old female presenting for fever patient is a poor historian with weakness altered mental status MD Complaint: fever, weakness, other (Altered mental status) -: unknown Temperature Source: subjective Context: sick contacts, multiple patients with similar symptoms Associated Symptoms: chills, myalgias Treatments Prior to Arrival: none - Related Data Home Medications Medication Instructions Recorded Confirmed Calcium Carbonate [Calcium] 600 mg PO DAILY@1700 10/06/17 05/07/25 Atorvastatin Calcium [Lipitor] 10 mg PO DAILY@169906/17/18 05/07/25 Cholecalciferol [Vitamin D3 (125 125 mcg PO DAILY@169903/31/22 05/07/25 Mcg = 5000 Iu)] Docusate [Colace] 100 mg PO BID@0800,1700 03/31/22 05/07/25 OLANZapine 20 mg PO HS@169903/31/22 05/07/25 polyethylene glycoL 3350 [Miralax] 17 gm PO DAILY PRN 03/31/22 05/07/25 Acetaminophen [Tylenol 8 Hour] 650 mg PO Q4H PRN 05/07/25 05/07/25 Furosemide [Lasix] 40 mg PO DAILY@0800 05/07/25 05/07/25 Ibuprofen [Motrin Ib] 40 mg PO Q6H PRN 05/07/25 05/07/25 Magnesium Hydroxide [Milk of 7,200 mg PO DAILY PRN 05/07/25 05/07/25 Magnesia Concentrate] Melatonin 5 mg PO HS@209905/07/25 05/07/25 Metoprolol Tartrate [Lopressor] 25 mg PO TID@0800,1400,209905/07/25 05/07/25 Na Phos,M-B/Na Phos,Di-Ba [Fleet 133 ml RECTAL DAILY PRN 05/07/25 05/07/25 Adult] bisacodyL [Dulcolax] 10 mg RECTAL DAILY PRN 05/07/25 05/07/25 Previous Rx's Medication Instructions Recorded Heparin Sodium,Porcine (1 ml) 5,000 unit SQ Q8HR each 05/11/25 [Heparin Sodium] Ipratropium-Albuterol Nebulize 3 ml INHALATION RT-Q4H PRN each 05/11/25 [Duoneb 0.5 mg-3 mg/3 ml Soln] Ondansetron Odt [Zofran Odt] 4 mg PO Q8HR PRN #20 tab 05/11/25 Pantoprazole Sodium [Protonix] 40 mg PO BID #60 tab 05/11/25 cefuroxime axetiL [Ceftin] 500 mg PO BID 5 Days #10 tab 05/11/25 Allergies Allergy/AdvReac Type Severity Reaction Status Date / Time No Known Allergies Allergy Verified 05/07/25 14:07 Review of Systems ROS Statement: Those systems with pertinent positive or pertinent negative responses have been documented in the HPI. ROS Other: All systems not noted in ROS Statement are negative. Past Medical History Past Medical History: Unable to Obtain Additional Past Medical History / Comment(s): [facility] History of Any Multi-Drug Resistant Organisms: None Reported Past Surgical History: Unable to Obtain Additional Past Surgical History / Comment(s): L breast biopsy, colonoscopy Past Anesthesia/Blood Transfusion Reactions: No Reported Reaction Past Psychological History: No Psychological Hx Reported Smoking Status: Never smoker Past Alcohol Use History: None Reported Past Drug Use History: None Reported - Past Family History Mother Family Medical History: No Reported History Additional Family Medical History / Comment(s): Mother was healthy Father Additional Family Medical History / Comment(s): Heart issues. General Exam General appearance: alert, in no apparent distress Head exam: Present: atraumatic, normocephalic, normal inspection Eye exam: Present: normal appearance, PERRL, EOMI. Absent: scleral icterus, conjunctival injection, periorbital swelling ENT exam: Present: normal exam, mucous membranes moist Neck exam: Present: normal inspection. Absent: tenderness, meningismus, lym phadenopathy Respiratory exam: Present: normal lung sounds bilaterally. Absent: respiratory distress, wheezes, rales, rhonchi, stridor Cardiovascular Exam: Present: regular rate, normal rhythm, normal heart sounds. Absent: systolic murmur, diastolic murmur, rubs, gallop, clicks GI/Abdominal exam: Present: soft, normal bowel sounds. Absent: distended, tenderness, guarding, rebound, rigid Extremities exam: Present: normal inspection, full ROM, normal capillary refill. Absent: tenderness, pedal edema, joint swelling, calf tenderness Back exam: Present: normal inspection Neurological exam: Present: alert, oriented X3, CN II-XII intact Psychiatric exam: Present: normal affect, normal mood Skin exam: Present: warm, dry, intact, normal color. Absent: rash Course Vital Signs 05/07/25 05/07/25 05/07/25 02:36 04:00 06:00 Temperature 99.3 F Pulse Rate 100 102 H 99 Respiratory 20 18 18 Rate Blood Pressure 120/56 107/62 104/74 O2 Sat by Pulse 93 L 95 96 Oximetry 05/07/25 05/07/25 05/07/25 08:00 09:00 12:00 Temperature 99.9 F H 99.9 F H Pulse Rate 89 Respiratory 17 19 Rate Blood Pressure 122/75 O2 Sat by Pulse 94 L Oximetry 05/07/25 05/07/25 05/07/25 12:58 13:26 14:53 Temperature 99.2 F 99.8 F H Pulse Rate 97 100 93 Respiratory 18 17 19 Rate Blood Pressure 134/68 O2 Sat by Pulse 95 Oximetry 05/07/25 05/07/25 05/07/25 15:56 18:04 18:36 Temperature 99.0 F Pulse Rate 99 103 H Respiratory 19 19 Rate Blood Pressure 154/81 129/96 O2 Sat by Pulse 95 94 L Oximetry 05/07/25 05/07/25 19:49 22:02 Temperature 99.3 F 98.3 F Pulse Rate 103 H 90 Respiratory 18 16 Rate Blood Pressure 156/67 160/81 O2 Sat by Pulse 95 97 Oximetry - Reevaluation(s) Reevaluation #1: 05/07/25 02:42 Medical records reviewed Reevaluation #2: 05/07/25 03:51 Patient has no change in symptoms here in the ER Reevaluation #3: 05/07/25 03:51 Patient phone results and questions answered Reevaluation #4: Was pt. sent in by a medical professional or institution (, PA, [employer], urgent care, hospital, or half-way...) When possible be specific @ -no Did you speak to anyone other than the patient for history (EMS, parent, family, police, friend...)? What history was obtained from this source @ -no Did you review nursing and triage notes (agree or disagree)? Why? @ -agree Are old charts reviewed (outside hosp., previous admission, EMS record, old EKG, old radiological studies, urgent care reports/EKG's, half-way records)? Report findings @ -yes Differential Diagnosis (chest pain, altered mental status, abdominal pain women, abdominal pain men, vaginal bleeding, weakness, fever, dyspnea, syncope, headache, dizziness, GI bleed, back pain, seizure, CVA, palpatations, mental health, musculoskeletal)? @ -prior EKG interpreted by me (3pts min.). @ -yes X-rays interpreted by me (1pt min.). @ -yes positive for pneumonia CT interpreted by me (1pt min.). @ -no U/S interpreted by me (1pt. min.). @ -no What testing was considered but not performed or refused? (CT, X-rays, U/S, labs )? Why? @ -none What meds were considered but not given or refused? Why? @ -none Did you discuss the management of the patient with other professionals (professionals i.e. , PA, [employer], lab, RT, psych nurse, social science manager, button cutting machine operator, teacher, court registry officer, medical case manager)? Give summary @ -no Was smoking cessation discussed for >3mins.? @ -no Was critical care preformed (if so, how long)? @ -no Were there social determinants of health that impacted care today? How? (Homelessness, low income, unemployed, alcoholism, drug addiction, transportation, low edu. Level, literacy, decrease access to med. care, fdc, rehab)? @ -none Was there de-escalation of care discussed even if they declined (Discuss DNR or withdrawal of care, Hospice)? DNR status @ -no What co-morbidities impacted this encounter? (DM, HTN, Smoking, COPD, CAD, Cancer, CVA, ARF, Chemo, Hep., AIDS, mental health diagnosis, sleep apnea, morbid obesity)? @ -none Was patient admitted / discharged? Hospital course, mention meds given and route, prescriptions, significant lab abnormalities, going to OR and other pertinent info. @ - 74 female to the ER for evaluation patient presents to the ED for evaluation in regards to presents today weakness altered mental status fever now found to have pneumonia will admit for IV antibiotics Admitted Undiagnosed new problem with uncertain prognosis? @ -no Drug Therapy requiring intensive monitoring for toxicity (Heparin, Nitro, Insulin, Cardizem)? @ -no Were any procedures done? @ -no Diagnosis/symptom? @ -Fever pneumonia Acute, or Chronic, or Acute on Chronic? @ -Acute Uncomplicated (without systemic symptoms) or Complicated (systemic symptoms)? @ -Complicated Side effects of treatment? @ -no Exacerbation, Progression, or Severe Exacerbation? @ -exacerbation Poses a threat to life or bodily function? How? (Chest pain, [place], [place], pneumonia, PE, COPD, DKA, ARF, appy, cholecystitis, CVA, Diverticulitis, Homicidal, Suicidal, threat to staff... and all critical care pts) @ -yes extremes of age Reevaluation #5: Differential Fever: Pneumonia, viral URI, endocarditis, myocarditis, pericarditis, otitis, sinusitis, peritonsillar Abscess, retropharyngeal Abscess, epiglottitis, peritonitis, appendicitis, Ingrid cystitis, diverticulitis, hepatitis, colitis, UTI, PID, TOA, pyelonephritis, prostatitis, epididymitis, meningitis, encephalitis, pulmonary embolism, CVA, thyroid storm, pancreatitis, adrenal crisis, cavernous sinus thrombosis, this is not meant to be an all-inclusive list. - Consultations Consultation #1: Spoke with [facility] who agrees to admit this patient Medical Decision Making - Medical Decision Making 74 female to the ER for evaluation patient presents to the ED for evaluation in regards to presents today weakness altered mental status fever now found to have pneumonia will admit for IV antibiotics - Lab Data Result diagrams: 05/10/25 06:59 05/11/25 04:54 Lab Results 05/07/25 05/07/25 05/07/25 Range/Units 02:56 02:56 02:56 WBC 9.95 (4.50-10.00) 10*3/uL RBC 4.33 (4.10-5.20) 10*6/uL Hgb 12.1 (12.0-15.0) g/dL Hct 36.6 L (37.2-46.3) % MCV 84.5 (80.0-97.0) fL MCH 27.9 (27.0-32.0) pg MCHC 33.1 (32.0-37.0) g/dL Plt Count 164 (140-440) 10*3/uL MPV 9.9 (9.5-12.2) fL Immature Gran % (Auto) 0.3 % Neutrophils % 82.4 % Lymphocytes % 8.1 % Monocytes % 8.9 % Eosinophils % 0.1 % Basophils % 0.2 % Immature Gran # 0.03 (0.00-0.04) 10*3/uL Neutrophils # 8.19 H (1.80-7.70) 10*3/uL Lymphocytes # 0.81 L (0.90-5.00) 10*3/uL Monocytes # 0.89 (0.20-1.00) 10*3/uL Eosinophils # 0.01 L (0.04-0.35) 10*3/uL Basophils # 0.02 (0.00-0.10) 10*3/uL Sodium 135 L (137-145) mmol/L Potassium 3.4 L (3.5-5.1) mmol/L Chloride 98 (98-107) mmol/L Carbon Dioxide 25 (22-30) mmol/L Anion Gap 12 mmol/L BUN 18 H (7-17) mg/dL Creatinine 0.84 (0.52-1.04) mg/dL Est GFR (CKD-EPI)AfAm 78 (>60 ml/min/1.73 sqM) Est GFR (CKD-EPI)NonAf 68 (>60 ml/min/1.73 sqM) Glucose 127 H (74-99) mg/dL Plasma Lactic Acid Jake 0.9 (0.7-2.0) mmol/L Calcium 9.3 (8.4-10.2) mg/dL Phosphorus 3.5 (2.5-4.5) mg/dL Magnesium 2.1 (1.6-2.3) mg/dL Total Bilirubin 0.7 (0.2-1.3) mg/dL AST 25 (14-36) U/L ALT 19 (4-34) U/L Alkaline Phosphatase 101 (38-126) U/L Total Protein 6.9 (6.3-8.2) g/dL Albumin 4.0 (3.5-5.0) g/dL - Radiology Data Radiology results: report reviewed (CXR is positive for pneumonia), image reviewed Disposition Clinical Impression: Pneumonia, Weakness, Fever Disposition: ADMITTED IP TO THIS HOSP Condition: Fair Is patient prescribed a controlled substance at d/c from ED?: No Time of Disposition: 04:00
[2025-05-07] MEDS: SODIUM CHLORIDE 0.9% 1,000 ML IV ONE (02:56)
[2025-05-07 03:03] LABS: Basophils # (A) 0.02 10*3/uL (0.00-0.10); Basophils % (A) 0.2 %; Eosinophils # (A) 0.01 10*3/uL (0.04-0.35); Eosinophils % (A) 0.1 %; HCT 36.6 % (37.2-46.3); HGB 12.1 g/dL (12.0-15.0); Lymphocytes # (A) 0.81 10*3/uL (0.90-5.00); Lymphocytes % (A) 8.1 %; MCH 27.9 pg (27.0-32.0); MCHC 33.1 g/dL (32.0-37.0); MCV 84.5 fL (80.0-97.0); Mean Platelet Volume 9.9 fL (9.5-12.2); Monocytes # (A) 0.89 10*3/uL (0.20-1.00); Monocytes % (A) 8.9 %; Neutrophils # (A) 8.19 10*3/uL (1.80-7.70); Neutrophils % (A) 82.4 %; Platelet Count 164 10*3/uL (140-440); RBC 4.33 10*6/uL (4.10-5.20); RDW 13.6 % (11.5-14.5); WBC 9.95 10*3/uL (4.50-10.00)
[2025-05-07 03:16] LABS: ALT 19 U/L (4-34); AST 25 U/L (14-36); African American GFR (CKD) 78 (>60 ml/min/1.73 sqM); Alkaline Phosphatase 101 U/L (38-126); Anion Gap 12 mmol/L; Blood Urea Nitrogen 18 mg/dL (7-17); Calcium 9.3 mg/dL (8.4-10.2); Carbon Dioxide 25 mmol/L (22-30); Chloride 98 mmol/L (98-107); Glucose 127 mg/dL (74-99); Magnesium 2.1 mg/dL (1.6-2.3); Non-African American GFR(CKD) 68 (>60 ml/min/1.73 sqM); Phosphorus 3.5 mg/dL (2.5-4.5); Potassium 3.4 mmol/L (3.5-5.1); Sodium 135 mmol/L (137-145); Total Bilirubin 0.7 mg/dL (0.2-1.3); Total Protein 6.9 g/dL (6.3-8.2)
--- NOTE | 2025-05-07 03:43 | XR ---
EXAM: XR Chest, 1 View CLINICAL HISTORY: ITS.REASON XR Reason: sob TECHNIQUE: Frontal view of the chest. COMPARISON: Chest radiograph on 04/04/2022 FINDINGS: Hardware: None. Lungs/pleura: Bilateral lower lung opacities. Opacity in the right upper lobe. No pleural effusion or pneumothorax. Heart/mediastinum: Mild enlargement of the cardiac silhouette. Atherosclerotic changes in the aorta. Soft tissues: Unremarkable. Bones: No acute fracture. Old fracture deformity of the right clavicle. Upper abdomen: Normal. IMPRESSION: Bilateral lower lung opacities may represent atelectasis. Opacity in the right upper lobe may represent atelectasis versus pneumonia.
[2025-05-07] MEDS ORDERED: IPRATROPIUM-ALBUTEROL 3 ML NEB INHALATION PRN (03:47)
[2025-05-07] MEDS ORDERED: PNEUMONIA PROTOCOL UTILIZED 1 EACH MISC PO PRN (03:47)
[2025-05-07] MEDS: AZITHROMYCIN 500 MG in SODIUM CHLORIDE 0.9% 250 ML IVPB STA (05:15)
[2025-05-07] MEDS: SODIUM CHLORIDE 0.9% 1,000 ML IV SCH (05:24)
[2025-05-07] MEDS ORDERED: Potassium Replacement Protocol 1 EACH MISC MISCELLANE PRN (09:58)
[2025-05-07] MEDS ORDERED: IBUPROFEN 400 MG TAB PO PRN (09:59)
[2025-05-07] MEDS: ONDANSETRON 4 MG/2 ML VIAL IVP PRN (10:23)
[2025-05-07] MEDS: POTASSIUM CHLORIDE 10 MEQ in WATER FOR INJECTION 1 100ML.BAG IVPB SCH (10:34)
[2025-05-07] MEDS: ACETAMINOPHEN TAB 325 MG TAB PO PRN (11:38)
[2025-05-07] MEDS: IBUPROFEN 600 MG TAB PO STA (13:24)
[2025-05-07] MEDS: HEPARIN SODIUM,PORCINE 5,000 UNIT/ML 1 ML VIAL SQ SCH (15:52)
--- NOTE | 2025-05-07 16:00 | P.HPIM ---
History of Present Illness H&P Date: 05/07/25 Chief Complaint: Fever Patient is a 74-year-old female with a known history of hyperlipidemia, depression and currently [place] [facility] resident. Patient was sent to ER due to c omplaints of not feeling well. She was having fever and chills and myalgias. Otherwise patient is fully historian and unable to provide much history. Chest x-ray in the ERShowed bilateral lower lung opacities may represent atelectasis. Opacity in the right upper lobe may represent atelectasis versus pneumonia. While in the hospital patient was tachycardic and Tmax of 99.1 pulse ox 94% on room air. Laboratory data showed WBC 9.9 hemoglobin 12.1 and platelets 164, sodium 134 potassium 3.4 chloride 98 bicarb is 24 BUN 18 and creatinine 0.84 and blood sugar 127 liver enzymes are not elevated. Review of Systems Complete review of systems could not be obtained from the patient except as per HPI Past Medical History Past Medical History: Unable to Obtain Additional Past Medical History / Comment(s): N History of Any Multi-Drug Resistant Organisms: None Reported Past Surgical History: Unable to Obtain Additional Past Surgical History / Comment(s): L breast biopsy, colonoscopy Past Anesthesia/Blood Transfusion Reactions: No Reported Reaction Past Psychological History: No Psychological Hx Reported Smoking Status: Never smoker Past Alcohol Use History: None Reported Past Drug Use History: None Reported - Past Family History Mother Family Medical History: No Reported History Additional Family Medical History / Comment(s): Mother was healthy Father Additional Family Medical History / Comment(s): Heart issues. Medications and Allergies Home Medications Medication Instructions Recorded Confirmed Type Calcium Carbonate [Calcium] 600 mg PO DAILY@0 10/06/17 05/07/25 History Atorvastatin Calcium [Lipitor] 10 mg PO DAILY@1700 06/17/18 05/07/25 History Cholecalciferol [Vitamin D3 (125 125 mcg PO DAILY@169903/31/22 05/07/25 History Mcg = 5000 Iu)] Docusate [Colace] 100 mg PO BID@0800,169903/31/22 05/07/25 History OLANZapine 20 mg PO HS@169903/31/22 05/07/25 History polyethylene glycoL 3350 [Miralax] 17 gm PO DAILY PRN 03/31/22 05/07/25 History Acetaminophen [Tylenol 8 Hour] 650 mg PO Q4H PRN 05/07/25 05/07/25 History Furosemide [Lasix] 40 mg PO DAILY@0800 05/07/25 05/07/25 History Ibuprofen [Motrin Ib] 40 mg PO Q6H PRN 05/07/25 05/07/25 History Magnesium Hydroxide [Milk of 7,200 mg PO DAILY PRN 05/07/25 05/07/25 History Magnesia Concentrate] Melatonin 5 mg PO HS@2100 05/07/25 05/07/25 History Metoprolol Tartrate [Lopressor] 25 mg PO TID@0800,1400,2100 05/07/25 05/07/25 History Na Phos,M-B/Na Phos,Di-Ba [Fleet 133 ml RECTAL DAILY PRN 05/07/25 05/07/25 History Adult] bisacodyL [Dulcolax] 10 mg RECTAL DAILY PRN 05/07/25 05/07/25 History Allergies Allergy/AdvReac Type Severity Reaction Status Date / Time No Known Allergies Allergy Verified 05/07/25 14:07 Physical Exam Vitals: Vital Signs Temp Pulse Resp BP Pulse Ox 05/07/25 09:00 99.9 F H 89 17 122/75 94 L 05/07/25 08:00 99.9 F H 05/07/25 06:00 99 18 104/74 96 05/07/25 04:00 102 H 18 107/62 95 05/07/25 02:36 99.3 F 100 20 120/56 93 L Intake and Output 05/06/25 05/07/25 05/07/25 22:59 06:59 14:59 Other: Weight 81.647 kg PHYSICAL EXAMINATION: Patient is lying in the bed awake and alert. Able to answer simple questions. HEENT: Normocephalic. Neck is supple. Pupils reactive. Nostrils clear. Oral cavity is moist. Neck reveals no JVD, carotid bruits, or thyromegaly. CHEST EXAMINATION: Trachea is central. Symmetrical expansion. Bibasilar diminished sounds. No wheezing or rhonchi. n. CARDIAC: Normal S1, S2 with no gallops. No murmurs ABDOMEN: Soft. Bowel sounds normal. No organomegaly. No abdominal bruits. Extremities: reveal no edema. No clubbing or cyanosis Neurologically awake, alert, oriented x 1-2 able to move all extremities. No gross ocal deficits noted Skin: No rash or skin lesions. Psychiatric: Coperative. Could not be assessed completely Musculoskeletal: No joint swelling or deformity. Results CBC & Chem 7: 05/07/25 02:56 05/07/25 02:56 Labs: Abnormal Lab Results - Last 24 Hours (Table) 05/07/25 05/07/25 Range/Units 02:56 02:56 Hct 36.6 L (37.2-46.3) % Neutrophils # 8.19 H (1.80-7.70) 10*3/uL Lymphocytes # 0.81 L (0.90-5.00) 10*3/uL Eosinophils # 0.01 L (0.04-0.35) 10*3/uL Sodium 135 L (137-145) mmol/L Potassium 3.4 L (3.5-5.1) mmol/L BUN 18 H (7-17) mg/dL Glucose 127 H (74-99) mg/dL Thrombosis Risk Factor Assmnt - DVT/VTE Prophylaxis DVT/VTE Prophylaxis: Pharmacologic Prophylaxis ordered Assessment and Plan Assessment: Bilateral pneumonia. Chest x-ray showed bilateral lower lung opacities and right upper lobe opacity. Generalized weakness, fever and chills. Hyperlipidemia Hypertension Anxiety/depression DVT prophylaxis heparin subcu Plan: Patient be continued on IV hydration with normal saline. Continue with antibiotics ceftriaxone and azithromycin. Procalcitonin level will be obtained. Encourage incentive spirometry. Follow-up culture reports. Urinalysis was ordered. Follow-up Legionella urine antigen and sputum culture. PT OT will be consulted. Continue to follow closely. Follow-up repeat chest x- ray tomorrow. Time with Patient: Greater than 30
[2025-05-07 18:29] LABS: Influenza A Not Detected (Not Detectd); Influenza B Not Detected (Not Detectd); RSV Not Detected (Not Detectd)
[2025-05-07] MEDS: OLANZapine 10 MG TAB PO SCH (18:31)
[2025-05-07] MEDS: ATORVASTATIN 10 MG TAB PO SCH (18:31)
[2025-05-07 20:22] LABS: Appearance,Urine Cloudy (Clear); Bacteria,Urine Rare /hpf; Bilirubin,Urine Negative (Negative); Blood,Urine Trace (Negative); Color,Urine Yellow; Glucose,Urine (UA) Negative (Negative); Ketones,Urine 2+ (Negative); Leukocyte Esterase,Urine Negative (Negative); Mucus,Urine Rare /hpf; Nitrite,Urine Negative (Negative); Protein,Urine 1+ (Negative); RBC,Urine 1 /hpf (0-5); Specific Gravity,Urine 1.029 (1.001-1.035); Squamous Epithelial Cell,Urine <1 /hpf (0-4); Urobilinogen,Urine <2.0 mg/dL (<2.0); WBC,Urine 3 /hpf (0-5)
[2025-05-07] MEDS: METOPROLOL TARTRATE 25 MG TAB PO SCH (22:13)
[2025-05-07] MEDS: MELATONIN 5 MG TABLET PO SCH (22:16)
--- NOTE | 2025-05-08 07:56 | XR ---
EXAMINATION TYPE: XR chest 1V DATE OF EXAM: 05/08/2025 COMPARISON: 05/07/2025 CLINICAL INDICATION: Female, 74 years old with history of pneumonia; TECHNIQUE: Single frontal view of the chest is obtained. FINDINGS: Patient rotated toward the left shoulder normal cardiomediastinal contours. Heart mildly enlarged. Di ffuse interstitial opacities slightly worsened in the interval. Old healed right clavicular shaft fra cture deformity. IMPRESSION: Rotated exam. Mild cardiomegaly. Interstitial opacities show slight worsening in the int erval. [facility], Workstation: [employer], 05/08/2025 7:54 AM
[2025-05-08] MEDS: FUROSEMIDE 40 MG TAB PO SCH (09:28)
[2025-05-08 10:26] LABS: BUN/Creat Ratio 24.62 Ratio (12.00-20.00); Basophils # (A) 0.01 X 10*3/uL (0.00-0.10); Basophils % (A) 0.1 %; Blood Urea Nitrogen 19.7 mg/dL (9.0-27.0); Calcium 8.8 mg/dL (8.7-10.3); Carbon Dioxide 26.1 mmol/L (21.6-31.8); Chloride 98 mmol/L (96-109); Eosinophils # (A) 0 X 10*3/uL (0.04-0.35); Eosinophils % (A) 0 %; Glucose 152 mg/dL (70-110); HCT 39.3 % (37.2-46.3); HGB 12.4 g/dL (12.0-15.0); Lymphocytes # (A) 0.68 X 10*3/uL (0.90-5.00); Lymphocytes % (A) 5.7 %; MCH 27.9 pg (27.0-32.0); MCHC 31.6 g/dL (32.0-37.0); MCV 88.5 FL (80.0-97.0); Mean Platelet Volume 11.2 FL (9.5-12.2); Monocytes # (A) 0.74 X 10*3/uL (0.20-1.00); Monocytes % (A) 6.2 %; NRBC Per 100 WBC 0 X 10*3/uL (0.00-0.01); Neutrophils # (A) 10.55 X 10*3/uL (1.80-7.70); Neutrophils % (A) 87.7 %; Platelet Count 178 X 10*3/uL (140-440); Potassium 3.7 mmol/L (3.5-5.5); RBC 4.44 X 10*6/uL (4.10-5.20); RDW 13.7 % (11.5-14.5); Sodium 139 mmol/L (135-145); WBC 12.02 X 10*3/uL (4.50-10.00)
[2025-05-08] MEDS: AZITHROMYCIN 500 MG in SODIUM CHLORIDE 0.9% 250 ML IVPB SCH (11:38)
--- NOTE | 2025-05-08 18:39 | XR ---
EXAMINATION TYPE: XR abdomen 2V DATE OF EXAM: 05/08/2025 6:12 PM COMPARISON: None. CLINICAL INDICATION: Female, 74 years old with history of distention, TECHNIQUE: XR abdomen 2V view(s) obtained. FINDINGS: Normal colonic bowel gas is present. No mass effect is evident. No suspicious air-fluid levels are ev ident. No free air is identified exam is limited due to body habitus. Psoas margins appear normal. Or ganomegaly is not evident. IMPRESSION: 1. Unremarkable Abdomen [facility], , 05/08/2025 6:37 PM
[2025-05-08] MEDS: bisacodyL 10 MG SUPP RECTAL PRN (18:55)
[2025-05-08] MEDS: SODIUM CHLORIDE 0.9% 500 ML 500 ML IV ONE (18:58)
--- NOTE | 2025-05-09 06:08 | P.PN ---
Subjective Progress Note Date: 05/08/25 Patient is a 74-year-old female with a known history of hyperlipidemia, depression and currently [facility]. Patient was sent to ER due to complaints of not feeling well. She was having fever and chills and myalgias. Otherwise patient is a poor historian and unable to provide much history. Chest x-ray in the ERShowed bilateral lower lung opacities may represent atelectasis. Opacity in the right upper lobe may represent atelectasis versus pneumonia. While in the hospital patient was tachycardic and Tmax of 99.1 pulse ox 94% on room air. Laboratory data showed WBC 9.9 hemoglobin 12.1 and platelets 164, sodium 134 potassium 3.4 chloride 98 bicarb is 24 BUN 18 and creatinine 0.84 and blood sugar 127 liver enzymes are not elevated. 05/08/2025 Patient is seen in follow-up today and is pleasantly confused although responding appropriately to questions and commands, appears baseline and patient is a resident at [facility]. Patient is currently maintained on ceftriaxone and Zithromax with concerns of possible aspiration pneumonia. Per nursing staff earlier this morning patient was able to take medications orally although when attempting to eat lunch, patient had been choking and is high risk for aspiration. Recommend speech evaluation. White count is mildly elevated at 12.02, hemoglobin is stable at 12.4, sodium is 139 with a potassium of 3.7, BUN is 19.7 and creatinine is 0.8. Influenza, RSV, COVID testing were negative including urine Legionella and urinalysis is also negative. Chest x-ray today shows interstitial opacities show with slight worsening in the interval. review of systems: Constitutional: No reports of fatigue, fever, or chills Cardiovascular: No reports of chest pain or palpitations Respiratory: No reports of shortness of breath or cough GI: reports of some intermittent nausea, no current vomiting, or diarrhea : No reports of dysuria or retention Neurovascular: reports of weakness and mostly bedbound All medications have been reviewed PHYSICAL EXAMINATION: Patient is lying in the bed awake and alert x 1-2, baseline. Able to answer simple questions. Well-developed, elderly appearing, obese HEENT: Normocephalic. Neck is supple. Pupils reactive. Nostrils clear. Oral cavity is moist. Neck reveals no JVD, carotid bruits, or thyromegaly. CHEST EXAMINATION: Trachea is central. Symmetrical expansion. Bibasilar diminished sounds. No wheezing or rhonchi CARDIAC: Normal S1, S2 with no gallops. No murmurs ABDOMEN: Soft. Bowel sounds normal. No organomegaly. No abdominal bruits. Extremities: reveal no edema. No clubbing or cyanosis Neurologically awake, alert, oriented x 1-2 able to move all extremities. No gross focal deficits noted, diffusely weak Skin: No rash or skin lesions. Psychiatric: Cooperative. Could not be assessed completely Musculoskeletal: No joint swelling or deformity. Assessment: Bilateral pneumonia. Chest x-ray showed bilateral lower lung opacities and right upper lobe opacity. Concerns for aspiration pneumonia Generalized weakness, fever and chills. Likely secondary to above History of heart failure, unknown EF History of memory impairment Hyperlipidemia Hypertension Anxiety/depression DVT prophylaxis heparin subcu Obesity with a BMI of 30.0 GI prophylaxis Full code Plan: Patient be continued on IV hydration with normal saline. Recommend to decrease the dose as patient does have history of heart failure with unknown EF. Continue with antibiotics ceftriaxone and azithromycin. Procalcitonin level ordered and pending. Encourage incentive spirometry use at least 10 times every hour while awake. Follow-up blood culture thus far is negative. Attempting to obtain a sputum cu lture Initially nursing staff reported patient was tolerating oral intake although when attempting to eat lunch patient was choking and is high risk for aspirations, recommend speech evaluation for further diet recommendations Will follow-up on repeat labs Plan will be for patient to return to [facility] where she resides and will discuss with case management The impression and plan of care has been dictated by Helen Naatrajan, Nurse Practitioner as directed. Dr. Alberto MD I have performed a history and examination and MDM of this patient, discussed the same with the dictator, and agree with the dictator's assessment and plan as written ,documented as a scribe. Based on total visit time, I have performed more than 50% of the visit. Objective - Vital Signs Vital signs: Vital Signs Temp 99.3 F 05/08/25 07:18 Pulse 89 05/08/25 07:18 Resp 20 05/08/25 07:18 BP 152/77 05/08/25 07:18 Pulse Ox 98 05/08/25 07:18 FiO2 Intake & Output 06/22/25 06/23/25 06/23/25 18:59 06:59 18:59 Intake Total 100 Balance 100 Weight 81.647 kg Intake: Oral 100 Other: # Voids 1 # Bowel Movements 2 - Labs CBC & Chem 7: 05/08/25 02:33 05/08/25 02:33 Labs: Abnormal Lab Results - Last 24 Hours (Table) 05/07/25 Range/Units 19:29 Urine Appearance Cloudy H (Clear) Urine Protein 1+ H (Negative) Urine Ketones 2+ H (Negative) Urine Blood Trace H (Negative) Urine Bacteria Rare H (None) /hpf Urine Mucus Rare H (None) /hpf
[2025-05-09 08:17] LABS: Basophils # (A) 0.02 X 10*3/uL (0.00-0.10); Basophils % (A) 0.2 %; Eosinophils # (A) 0.04 X 10*3/uL (0.04-0.35); Eosinophils % (A) 0.5 %; HCT 33.3 % (37.2-46.3); HGB 10.4 g/dL (12.0-15.0); Lymphocytes # (A) 1.56 X 10*3/uL (0.90-5.00); MCH 27.7 pg (27.0-32.0); MCHC 31.2 g/dL (32.0-37.0); MCV 88.6 FL (80.0-97.0); Monocytes # (A) 0.81 X 10*3/uL (0.20-1.00); Monocytes % (A) 9.3 %; NRBC Per 100 WBC 0 X 10*3/uL (0.00-0.01); Neutrophils # (A) 6.19 X 10*3/uL (1.80-7.70); Neutrophils % (A) 71.4 %; Platelet Count 170 X 10*3/uL (140-440); RBC 3.76 X 10*6/uL (4.10-5.20); RDW 13.8 % (11.5-14.5); WBC 8.67 X 10*3/uL (4.50-10.00)
[2025-05-09 08:29] LABS: Magnesium 2.2 mg/dL (1.5-2.4)
[2025-05-09 08:37] LABS: BUN/Creat Ratio 28.71 Ratio (12.00-20.00); Blood Urea Nitrogen 20.1 mg/dL (9.0-27.0); Calcium 8.1 mg/dL (8.7-10.3); Carbon Dioxide 24.7 mmol/L (21.6-31.8); Chloride 108 mmol/L (96-109); Glucose 93 mg/dL (70-110); Potassium 3.5 mmol/L (3.5-5.5); Sodium 142 mmol/L (135-145)
--- NOTE | 2025-05-09 14:38 | FL ---
Exam Date: 05/09/2025 2:10 PM. Modified barium swallow for dysphagia. Consistencies administered: Various consistency of barium. No images were sent to PACS. Please see speech pathology report. DAP: 173.50 mGym2 Gycm2 [facility], , 05/09/2025 2:36 PM
--- NOTE | 2025-05-10 04:59 | P.PN ---
Subjective Progress Note Date: 05/09/25 Patient is a 74-year-old female with a known history of hyperlipidemia, depression and currently [facility] resident. Patient was sent to ER due to complaints of not feeling well. She was having fever and chills and myalgias. Otherwise patient is a poor historian and unable to provide much history. Chest x-ray in the ERShowed bilateral lower lung opacities may represent atelectasis. Opacity in the right upper lobe may represent atelectasis versus pneumonia. While in the hospital patient was tachycardic and Tmax of 99.1 pulse ox 94% on room air. Laboratory data showed WBC 9.9 hemoglobin 12.1 and platelets 164, sodium 134 potassium 3.4 chloride 98 bicarb is 24 BUN 18 and creatinine 0.84 and blood sugar 127 liver enzymes are not elevated. 05/08/2025 Patient is seen in follow-up today and is pleasantly confused although responding appropriately to questions and commands, appears baseline and patient is a resident at [facility]. Patient is currently maintained on ceftriaxone and Zithromax with concerns of possible aspiration pneumonia. Per nursing staff earlier this morning patient was able to take medications orally although when attempting to eat lunch, patient had been choking and is high risk for aspiration. Recommend speech evaluation. White count is mildly elevated at 12.02, hemoglobin is stable at 12.4, sodium is 139 with a potassium of 3.7, BUN is 19.7 and creatinine is 0.8. Influenza, RSV, COVID testing were negative including urine Legionella and urinalysis is also negative. Chest x-ray today shows interstitial opacities show with slight worsening in the interval. 05/09/2025 Patient is seen in follow-up today was able to take pills per nursing staff again although is having extreme difficulty with food and is at high aspiration risk. Patient to be evaluated with a modified barium swallow with speech therapy today. Patient otherwise is n.p.o. for now and will continue with head of the bed elevated 30 to 45 degrees at all times. Patient is wearing 2 L of oxygen and reports she does not wear this at home. Patient does reside at [facility] and will be returning there on discharge. Unsure of CODE STATUS and this needs to be addressed. Patient is afebrile with no reports of chest pain or worsening shortness of breath patient reports she is mostly bedbound and will await repeat PT/OT therapy evaluation. review of systems: Constitutional: No reports of fatigue, fever, or chills Cardiovascular: No reports of chest pain or palpitations Respiratory: No reports of shortness of breath or cough GI: reports of some intermittent nausea, no current vomiting, or diarrhea : No reports of dysuria or retention Neurovascular: reports of weakness and mostly bedbound All medications have been reviewed PHYSICAL EXAMINATION: Patient is lying in the bed awake and alert x 1-2, baseline. Able to answer simple questions. Well-developed, elderly appearing, obese HEENT: Normocephalic. Neck is supple. Pupils reactive. Nostrils clear. Oral cavity is moist. Neck reveals no JVD, carotid bruits, or thyromegaly. CHEST EXAMINATION: Trachea is central. Symmetrical expansion. Bibasilar diminished sounds. No wheezing or rhonchi CARDIAC: Normal S1, S2 with no gallops. No murmurs ABDOMEN: Soft. Bowel sounds normal. No organomegaly. No abdominal bruits. Extremities: reveal no edema. No clubbing or cyanosis Neurologically awake, alert, oriented x 1-2 able to move all extremities. No gross focal deficits noted, diffusely weak Skin: No rash or skin lesions. Psychiatric: Cooperative. Could not be assessed completely Musculoskeletal: No joint swelling or deformity. Assessment: Bilateral pneumonia. Chest x-ray showed bilateral lower lung opacities and right upper lobe opacity. Concerns for aspiration pneumonia Generalized weakness, fever and chills. Likely secondary to above History of heart failure, unknown EF History of memory impairment Hyperlipidemia Hypertension Anxiety/depression DVT prophylaxis heparin subcu Obesity with a BMI of 30.0 GI prophylaxis Full code Plan: Patient be continued on IV hydration with normal saline. Recommend to decrease the dose as patient does have history of heart failure with unknown EF. Continue with antibiotics ceftriaxone and azithromycin. Procalcitonin level 0.20 Encourage incentive spirometry use at least 10 times every hour while awake. Follow-up blood culture thus far is negative. Attempting to obtain a sputum culture Patient continues to be able to tolerate pills with no difficulty although is having coughing and choking with meals and is n.p.o. while awaiting speech to reevaluate with modified barium swallow. There is a high concern of patient aspirating although no aspiration noted on swallow study but there are some epiglottal issues noted on swallow study. Large food bolus also noted in the esophagus. Will consult GI and appreciate input recommendations as there is concern for possible esophageal stricture or stenosis Will follow-up on repeat labs, replace electrolytes per protocol Plan will be for patient to return to [facility] where she resides and will discuss with case management once cleared by consultations The impression and plan of care has been dictated by Helen Natarajan, Nurse Practitioner as directed. Dr. Alberto MD I have performed a history and examination and MDM of this patient, discussed the same with the dictator, and agree with the dictator's assessment and plan as written ,documented as a scribe. Based on total visit time, I have performed more than 50% of the visit. Objective - Vital Signs Vital signs: Vital Signs Temp 98.4 F 05/10/25 00:45 Pulse 84 05/10/25 00:45 Resp 18 05/10/25 00:45 BP 130/65 05/10/25 00:45 Pulse Ox 98 05/10/25 00:45 FiO2 Intake & Output 05/09/25 05/09/25 05/10/25 06:59 18:59 06:59 Other: Voiding Method Diaper Diaper Diaper Incontinent Incontinent Incontinent # Voids 1 2 # Bowel Movements 2 - Labs CBC & Chem 7: 05/09/25 05:59 05/09/25 05:59 Labs: Abnormal Lab Results - Last 24 Hours (Table) 05/09/25 05/09/25 Range/Units 05:59 05:59 RBC 3.76 L (4.10-5.20) X 10*6/uL Hgb 10.4 L (12.0-15.0) g/dL Hct 33.3 L (37.2-46.3) % MCHC 31.2 L (32.0-37.0) g/dL Immature Gran # 0.05 H (0.00-0.04) X 10*3/uL BUN/Creatinine Ratio 28.71 H (12.00-20.00) Ratio Calcium 8.1 L (8.7-10.3) mg/dL Microbiology - Last 24 Hours (Table) 05/07/25 02:50 Blood Culture - Preliminary Blood
[2025-05-10 10:29] LABS: Basophils # (A) 0.03 X 10*3/uL (0.00-0.10); Basophils % (A) 0.5 %; Eosinophils # (A) 0.08 X 10*3/uL (0.04-0.35); Eosinophils % (A) 1.2 %; HCT 32.7 % (37.2-46.3); HGB 10.5 g/dL (12.0-15.0); Lymphocytes # (A) 1.36 X 10*3/uL (0.90-5.00); Lymphocytes % (A) 20.7 %; MCHC 32.1 g/dL (32.0-37.0); MCV 87.2 FL (80.0-97.0); Mean Platelet Volume 10.7 FL (9.5-12.2); Monocytes # (A) 0.54 X 10*3/uL (0.20-1.00); Monocytes % (A) 8.2 %; NRBC Per 100 WBC 0 X 10*3/uL (0.00-0.01); Neutrophils # (A) 4.48 X 10*3/uL (1.80-7.70); Platelet Count 199 X 10*3/uL (140-440); RBC 3.75 X 10*6/uL (4.10-5.20); RDW 13.6 % (11.5-14.5); WBC 6.58 X 10*3/uL (4.50-10.00)
[2025-05-10 10:36] LABS: ALT 14 U/L (8-44); AST 23 U/L (13-35); Albumin 3.1 g/dL (3.8-4.9); Albumin/Globulin Ratio 1.24 Ratio (1.60-3.17); Alkaline Phosphatase 73 U/L (41-126); BUN/Creat Ratio 18.67 Ratio (12.00-20.00); Blood Urea Nitrogen 11.2 mg/dL (9.0-27.0); Calcium 8.4 mg/dL (8.7-10.3); Carbon Dioxide 23.8 mmol/L (21.6-31.8); Chloride 107 mmol/L (96-109); Globulin 2.5 g/dL (1.6-3.3); Glucose 92 mg/dL (70-110); Potassium 3.3 mmol/L (3.5-5.5); Sodium 142 mmol/L (135-145); Total Bilirubin 0.2 mg/dL (0.3-1.2); Total Protein 5.6 g/dL (6.2-8.2)
--- NOTE | 2025-05-10 11:01 | P.CONS ---
History of Present Illness - Reason for Consult Consult date: 05/10/25 Dysphagia, suspected aspiration pneumonia Requesting physician: Helen Natarajan - Chief Complaint Fever, myalgia - History of Present Illness This is a pleasant 74-year-old female with a past medical history including dementia who resides at a [facility] who was brought in for concerns of fever, chills, and body aches. Patient had a chest x-ray and was admitted for tr eatment of pneumonia. Apparently during the hospitalization nursing had noted that patient was having coughing with eating and swallowing. Speech therapy consultation was placed and patient underwent evaluation with a modified barium swallow. Although there was no aspiration noted there was significant reflux noted in the paraesophageal phase. Speech therapy recommended gastroenterology consultation for direct visualization. Patient states that she does not have difficulty swallowing. Her diet was changed to dysphagia diet pured. With thickened liquids. Patient is poor historian unsure if she has had previous upper endoscopy. Review of Systems REVIEW OF SYSTEMS: CARDIOPULMONARY: No chest pain or shortness of breath. Gastrointestinal: No abdominal pain. Reported no difficulty with swallowing and no pain with swallowing. No nausea or vomiting. No hematemesis, coffee-ground emesis. No rectal bleeding, or melena. GENITOURINARY: No dysuria or hematuria. MUSCULOSKELETAL: Reports normal range of motion. SKIN: No rashes. No jaundice. ENDOCRINE: No chills, fevers. No excessive weight gain or loss. No polydipsia or polyuria. PSYCHIATRIC: Unremarkable. NEUROLOGY: No change in mental status. Denies dizziness, headache. ENT: Vision unremarkable. CONSTITUTIONAL: No recent weight loss. No fever, chills, night sweats. Past Medical History Past Medical History: Heart Failure, Hyperlipidemia, Memory Impairment Additional Past Medical History / Comment(s): COUNTS INCLUDE 234 BEDS AT THE [facility] History of Any Multi-Drug Resistant Organisms: None Reported Past Surgical History: Unable to Obtain Additional Past Surgical History / Comment(s): L breast biopsy, colonoscopy Past Anesthesia/Blood Transfusion Reactions: No Reported Reaction Past Psychological History: Depression Additional Psychological History / Comment(s): Pt resides at [facility]. She has a [facility] public legal guardian. Smoking Status: Never smoker Past Alcohol Use History: None Reported Past Drug Use History: None Reported - Past Family History Mother Family Medical History: No Reported History Additional Family Medical History / Comment(s): Mother was healthy Father Additional Family Medical History / Comment(s): Heart issues. Medications and Allergies Home Medications Medication Instructions Recorded Confirmed Type Calcium Carbonate [Calcium] 600 mg PO DAILY@1700 10/06/17 05/07/25 History Atorvastatin Calcium [Lipitor] 10 mg PO DAILY@1700 06/17/18 05/07/25 History Cholecalciferol [Vitamin D3 (125 125 mcg PO DAILY@1700 03/31/22 05/07/25 History Mcg = 5000 Iu)] Docusate [Colace] 100 mg PO BID@0800,1700 03/31/22 05/07/25 History OLANZapine 20 mg PO HS@1700 03/31/22 05/07/25 History polyethylene glycoL 3350 [Miralax] 17 gm PO DAILY PRN 03/31/22 05/07/25 History Acetaminophen [Tylenol 8 Hour] 650 mg PO Q4H PRN 05/07/25 05/07/25 History Furosemide [Lasix] 40 mg PO DAILY@0800 05/07/25 05/07/25 History Ibuprofen [Motrin Ib] 40 mg PO Q6H PRN 05/07/25 05/07/25 History Magnesium Hydroxide [Milk of 7,200 mg PO DAILY PRN 05/07/25 05/07/25 History Magnesia Concentrate] Melatonin 5 mg PO HS@209905/07/25 05/07/25 History Metoprolol Tartrate [Lopressor] 25 mg PO TID@0800,1400,2100 05/07/25 05/07/25 History Na Phos,M-B/Na Phos,Di-Ba [Fleet 133 ml RECTAL DAILY PRN 05/07/25 05/07/25 History Adult] bisacodyL [Dulcolax] 10 mg RECTAL DAILY PRN 05/07/25 05/07/25 History Allergies Allergy/AdvReac Type Severity Reaction Status Date / Time No Known Allergies Allergy Verified 05/07/25 14:07 Physical Exam Vitals: Vital Signs Temp Pulse Resp BP Pulse Ox 05/10/25 00:45 98.4 F 84 18 130/65 98 05/09/25 19:21 97.6 F 77 16 119/65 97 05/09/25 14:14 98.4 F 82 17 122/72 98 Intake and Output 05/09/25 05/10/25 05/10/25 22:59 06:59 14:59 Other: Voiding Method Diaper Incontinent # Voids 2 1 General appearance: The patient is alert, oriented to self, appears in no acute distress. HET: Head is normocephalic and atraumatic. Conjunctiva pink. Sclera anicteric. Neck: Supple without lymphadenopathy. Trachea midline. Heart: Regular. Lungs: Equal expansion, normal respiratory effort. Abdomen: Soft, nontender, nondistended. Skin: No rashes. No jaundice. Extremities: Normal skin color and turgor. No pedal edema. Neurological: Alert and oriented. Results CBC & Chem 7: 05/10/25 06:59 05/10/25 06:59 Labs: Abnormal Lab Results - Last 24 Hours (Table) 05/09/25 05/09/25 Range/Units 05:59 05:59 RBC 3.76 L (4.10-5.20) X 10*6/uL Hgb 10.4 L (12.0-15.0) g/dL Hct 33.3 L (37.2-46.3) % MCHC 31.2 L (32.0-37.0) g/dL Immature Gran # 0.05 H (0.00-0.04) X 10*3/uL BUN/Creatinine Ratio 28.71 H (12.00-20.00) Ratio Calcium 8.1 L (8.7-10.3) mg/dL Microbiology - Last 24 Hours (Table) 05/07/25 02:50 Blood Culture - Preliminary Blood Comments: Modified barium swallow pharyngeal phase summary reports inconsistent swallow. Initiation of the oropharyngeal swallow occurred at the bolus head was at the pyriform sinuses. Soft palate elevation was absent. Laryngeal elevation was adequate however anterior hyoid excursion was absent. Epiglottic movement was not consistent with patient initially exhibiting absent inversion however this did normalize his steady progress. Laryngeal vestibular closure was mildly reduced with a narrow column of contrast noted within the laryngeal vestibule at the height of the swallow. Pharyngeal stripping wave was absent. Pharyngeal esophageal segment opening was with partial distention/partial duration with partial obstruction of flow. Tongue base retracted allowed a narrow column of contrast between the retracted tongue base and the posterior pharyngeal wall. Esophageal clearance in upright position resulted in esophageal retention with retrograde flow through PES. Please note reflux was quite extensive with patient exhibiting an overt cough upon occurrence. Assessment and Plan (1) Dysphagia Narrative/Plan: 74-year-old female with dementia and poor historian presented with fever chills and bodyaches diagnosed with pneumonia. Suspected aspiration pneumonia. Was noted to have difficulty with swallowing and noted to have a cough reflex with swallowing by nursing. Underwent modified barium swallow with poor pharyngoesophageal phase with extensive reflux noted. Recommend further evaluation by direct visualization and will plan for upper endoscopy today. Current Visit: Yes Status: Acute Code(s): R13.10 - DYSPHAGIA, UNSPECIFIED SNOMED Code(s): 11966477 (2) Pneumonia Current Visit: Yes Status: Acute Code(s): J18.9 - PNEUMONIA, UNSPECIFIED ORGANISM SNOMED Code(s): 299173096 Plan: 1. Continue symptomatic and supportive care 2. Keep n.p.o. 3. Hold heparin 4. Please obtain consent from patient's legal guardian. Will plan for upper endoscopy today. 5. Further recommendations forthcoming based on clinical course Thank you for this consultation, we will continue to follow. Dr. Israel Hernandez I agree with the dictator's note, documented as a scribe by Asha Fang.
[2025-05-10] MEDS: LACTATED RINGERS 1,000 ML IV ONE (12:38)
[2025-05-10] MEDS ORDERED: PROPOFOL 10 MG/ML 20 ML VIAL IV ONE (12:40)
[2025-05-10] MEDS ORDERED: LIDOCAINE 1% INJ 10MG/ML (20 ML MDV) ONE (12:40)
--- NOTE | 2025-05-10 12:55 | P.PCN ---
Date of Procedure: 05/10/25 Procedure(s) Performed: BRIEF HISTORY: Patient is a 68-year-old, pleasant, white female admitted to hospital with possible aspiration pneumonia. She is a resident [facility] and apparently the nursing staff has noticed that she has some coughing while eating and hence she underwent speech therapy consultation and had a modified barium swallow done which showed no evidence of aspiration but there was evidence of significant reflux noted. She is scheduled for an upper endoscopy to evaluate further. PROCEDURE PERFORMED: Esophagogastroduodenoscopy with biopsy. PREOPERATIVE DIAGNOSIS: Dysphagia and possible reflux. IV sedation per anesthesia. PROCEDURE: After informed consent was obtained, the patient was brought into the endoscopy unit. IV sedation was administered by Anesthesia under continuous monitoring. Initially the Olympus GIF-140 video endoscope was inserted into the mouth. Esophagus intubated without any difficulty. It was gradually advanced into the distal esophageal and there was an esophageal stricture identified that was dilated with the passage of the scope. In the stomach there was a large amount of liquid identified and approximately 450 cc was aspirated. The scope was advanced into the distal stomach and duodenum and carefully examined. The bulb and the second part of the duodenum appeared normal. The scope at this time was withdrawn to the stomach, adequately insufflated with air, and upon careful examination, mucosa of the antrum, body, cardia and the fundus appeared normal. The scope was then withdrawn into the esophagus. Small hiatal hernia noted. The GE junction was located at 39 cm from the incisors. There was mild oozing at the site of dilation in the distal esophagus. Also there were linear erosions noted in the distal esophagus with 1 superficial ulceration consistent with LA grade C reflux esophagitis. IMPRESSION: 1. Distal esophageal stricture with severe reflux esophagitis s/p dilation with the passage of the scope. 2. The erosions and ulcerations in the distal esophagus consistent with LA grade C reflux esophagitis 3. Small hiatal hernia 4. Large amount of retained liquid in the stomach suggestive of gastroparesis. RECOMMENDATIONS: The findings of this examination were discussed with the patient. Start on Protonix 40 mg twice daily. Small frequent meals. Repeat upper endoscopy in 6 to 8 weeks.
[2025-05-10] MEDS: PANTOPRAZOLE 40 MG/10 ML VIAL IVP SCH (22:24)
--- NOTE | 2025-05-11 04:59 | P.PN ---
Subjective Progress Note Date: 05/10/25 Patient is a 74-year-old female with a known history of hyperlipidemia, depression and currently group home resident. Patient was sent to ER due to complaints of not feeling well. She was having fever and chills and myalgias. Otherwise patient is a poor historian and unable to provide much history. Chest x-ray in the ERShowed bilateral lower lung opacities may represent atelectasis. Opacity in the right upper lobe may represent atelectasis versus pneumonia. While in the hospital patient was tachycardic and Tmax of 99.1 pulse ox 94% on room air. Laboratory data showed WBC 9.9 hemoglobin 12.1 and platelets 164, sodium 134 potassium 3.4 chloride 98 bicarb is 24 BUN 18 and creatinine 0.84 and blood sugar 127 liver enzymes are not elevated. 05/08/2025 Patient is seen in follow-up today and is pleasantly confused although responding appropriately to questions and commands, appears baseline and patient is a resident at [facility]. Patient is currently maintained on ceftriaxone and Zithromax with concerns of possible aspiration pneumonia. Per nursing staff earlier this morning patient was able to take medications orally although when attempting to eat lunch, patient had been choking and is high risk for aspiration. Recommend speech evaluation. White count is mildly elevated at 12.02, hemoglobin is stable at 12.4, sodium is 139 with a potassium of 3.7, BUN is 19.7 and creatinine is 0.8. Influenza, RSV, COVID testing were negative including urine Legionella and urinalysis is also negative. Chest x-ray today shows interstitial opacities show with slight worsening in the interval. 05/09/2025 Patient is seen in follow-up today was able to take pills per nursing staff again although is having extreme difficulty with food and is at high aspiration risk. Patient to be evaluated with a modified barium swallow with speech therapy today. Patient otherwise is n.p.o. for now and will continue with head of the bed elevated 30 to 45 degrees at all times. Patient is wearing 2 L of oxygen and reports she does not wear this at home. Patient does reside at [facility] and will be returning there on discharge. Unsure of CODE STATUS and this needs to be addressed. Patient is afebrile with no reports of chest pain or worsening shortness of breath patient reports she is mostly bedbound and will await repeat PT/OT therapy evaluation. 05/10/2025 Patient is seen in follow-up this morning currently awake scheduled to undergo EGD with GI today and currently NPO. Patient has high risk for aspiration and there is concerns of esophageal stenosis or stricture and will await official EGD report. Plan will be for return to [facility] on discharge. Patient does have a legal guardian and CODE STATUS should be addressed as patient remains full code at this time. Overall quality of life is poor. Patient denies any chest pain or shortness of breath. No further vomiting noted at this time. review of systems: Constitutional: No reports of fatigue, fever, or chills Cardiovascular: No reports of chest pain or palpitations Respiratory: No reports of shortness of breath or cough GI: reports of some intermittent nausea, no current vomiting, or diarrhea : No reports of dysuria or retention Neurovascular: reports of weakness and mostly bedbound All medications have been reviewed PHYSICAL EXAMINATION: Patient is lying in the bed awake and alert x 1-2, baseline. Able to answer simple questions. Well-developed, elderly appearing, obese HEENT: Normocephalic. Neck is supple. Pupils reactive. Nostrils clear. Oral cavity is moist. Neck reveals no JVD, carotid bruits, or thyromegaly. CHEST EXAMINATION: Trachea is central. Symmetrical expansion. Bibasilar diminished sounds. No wheezing or rhonchi CARDIAC: Normal S1, S2 with no gallops. No murmurs ABDOMEN: Soft. Bowel sounds normal. No organomegaly. No abdominal bruits. Extremities: reveal no edema. No clubbing or cyanosis Neurologically awake, alert, oriented x 1-2 able to move all extremities. No gross focal deficits noted, diffusely weak Skin: No rash or skin lesions. Psychiatric: Cooperative. Could not be assessed completely Musculoskeletal: No joint swelling or deformity. Assessment: Bilateral pneumonia. Chest x-ray showed bilateral lower lung opacities and right upper lobe opacity. Likely aspiration pneumonia Dysphagia with concerns of possible esophageal stricture and/or stenosis, scheduled to undergo EGD today 05/10/2025 Generalized weakness, fever and chills. Likely secondary to above History of heart failure, unknown EF History of memory impairment Hyperlipidemia Hypertension Anxiety/depression DVT prophylaxis heparin subcu Obesity with a BMI of 30.0 GI prophylaxis Full code Plan: Patient be continued on IV hydration with normal saline. Recommend to decrease the dose as patient does have history of heart failure with unknown EF. Continue with antibiotics ceftriaxone and azithromycin. Procalcitonin level 0.20 Encourage incentive spirometry use at least 10 times every hour while awake. Follow-up blood culture thus far is negative. Attempting to obtain a sputum culture Patient continues to be able to tolerate pills with no difficulty although is having coughing and choking with meals and is n.p.o. status post MBS. There is a high concern of patient aspirating although no aspiration noted on swallow study but there are some epiglottal issues noted on swallow study. Large food bolus also noted in the esophagus. GI following and scheduled to undergo EGD today. Will await official report Will follow-up on repeat labs, replace electrolytes per protocol Plan will be for patient to return to [facility] where she resides and will discuss with case management once cleared by consultations. Possible discharge planning in the next 24 to 48 hours The impression and plan of care has been dictated by Helen Natarajan, Nurse Practitioner as directed. Dr. Alberto MD I have performed a history and examination and MDM of this patient, discussed the same with the dictator, and agree with the dictator's assessment and plan as written ,documented as a scribe. Based on total visit time, I have performed more than 50% of the visit. Objective - Vital Signs Vital signs: Vital Signs Temp 98.4 F 05/10/25 00:45 Pulse 84 05/10/25 00:45 Resp 18 05/10/25 00:45 BP 130/65 05/10/25 00:45 Pulse Ox 98 05/10/25 00:45 FiO2 Intake & Output 05/09/25 05/10/25 05/10/25 18:59 06:59 18:59 Other: Voiding Method Diaper Diaper Incontinent Incontinent # Voids 2 1 - Labs CBC & Chem 7: 05/10/25 06:59 05/10/25 06:59 Labs: Microbiology - Last 24 Hours (Table) 05/07/25 02:50 Blood Culture - Preliminary Blood
[2025-05-11 08:41] LABS: Blood Urea Nitrogen 7.5 mg/dL (9.0-27.0); Calcium 8.2 mg/dL (8.7-10.3); Carbon Dioxide 22.1 mmol/L (21.6-31.8); Chloride 102 mmol/L (96-109); Glucose 102 mg/dL (70-110); Potassium 3.1 mmol/L (3.5-5.5); Sodium 138 mmol/L (135-145)
[2025-05-11 11:01] VITALS: RESP 18
--- NOTE | 2025-05-11 13:05 | P.PN ---
Subjective Progress Note Date: 05/11/25 Principal diagnosis: Dysphagia This is a pleasant 62-year-old male with a history of hearing disorder who is hard of hearing, alcoholism, and daily smoker who had presented to the emergency department yesterday with dizziness and syncopal episode. Patient was admitted with acute kidney injury, hypomagnesemia and noted to have normocytic normochromic anemia. Nephrology was consulted for acute kidney injury. Patient had a drop in his hemoglobin from 9.0 on admission to 6.9 today. Gastroenterology was consulted for anemia. Patient states he has a history of alcoholism and drinks 1/5 a day for most of his life. He currently denies any abdominal pain no black stool or blood in his stool. He states he did have 1 episode of emesis this morning that was bilious, no blood noted. Denies any known history of esophageal varices or cirrhosis of the liver. States he had an upper endoscopy about a year ago possibly at [facility]. No history of colonoscopy. He denies any blood thinners. No regular NSAID use. 05/11/2025 Patient seen and examined today as a follow-up. Yesterday she underwent upper endoscopy with findings of distal esophageal stricture with severe reflux esophagitis status post dilation with passage of the scope. Erosions and ulcer ations in the distal esophagus consistent with LA grade C reflux esophagitis, small hiatal hernia large amount of retained liquid in the stomach suggestive of gastroparesis. Patient denies any abdominal pain, nausea or vomiting. She is on a pured diet. Objective - Vital Signs Vital signs: Vital Signs Temp 98.5 F 05/11/25 07:00 Pulse 74 05/11/25 07:00 Resp 18 05/11/25 11:01 BP 136/76 05/11/25 07:00 Pulse Ox 96 05/11/25 07:00 FiO2 Intake & Output 05/10/25 05/11/25 05/11/25 18:59 06:59 18:59 Intake Total 200 100 Balance 200 100 Intake: IV 200 Oral 100 Other: Voiding Method Diaper Diaper Diaper Incontinent Incontinent Incontinent # Voids 1 3 # Emeses 1 - Exam General appearance: The patient is alert, oriented, appears in no acute distress. HET: Head is normocephalic and atraumatic. Conjunctiva pink. Sclera anicteric. Neck: Supple without lymphadenopathy. Abdomen: Soft, nontender, nondistended. Extremities: Normal skin color and turgor. No pedal edema Skin: No rashes, no jaundice Neurological: No focal deficits. Alert and oriented. - Labs CBC & Chem 7: 05/10/25 06:59 05/11/25 04:54 Labs: Abnormal Lab Results - Last 24 Hours (Table) 05/11/25 Range/Units 04:54 Potassium 3.1 L (3.5-5.5) mmol/L Anion Gap 13.90 H (4.00-12.00) mmol/L BUN 7.5 L (9.0-27.0) mg/dL Calcium 8.2 L (8.7-10.3) mg/dL Microbiology - Last 24 Hours (Table) 05/07/25 02:50 Blood Culture - Preliminary Blood Assessment and Plan (1) Dysphagia Narrative/Plan: 74-year-old female with dementia and poor historian presented with fever chills and bodyaches diagnosed with pneumonia. Suspected aspiration pneumonia. Was noted to have difficulty with swallowing and noted to have a cough reflex with swallowing by nursing. Underwent modified barium swallow with poor pharyngoesophageal phase with extensive reflux noted. Recommend further evaluation by direct visualization and will plan for upper endoscopy today. Status post upper endoscopy with finding of distal esophageal stricture with severe reflux esophagitis status post dilation with passage of scope and LA grade C repeat reflux esophagitis. Large amount of retained liquid in stomach suggestive of gastroparesis and small hiatal hernia. Recommend continuing Protonix 40 mg twice a day, eating small frequent pured meals and repeat upper endoscopy in 6 to 8 weeks. Current Visit: Yes Status: Acute Code(s): R13.10 - DYSPHAGIA, UNSPECIFIED SNOMED Code(s): 24828295 (2) Pneumonia Current Visit: Yes Status: Acute Code(s): J18.9 - PNEUMONIA, UNSPECIFIED ORGANISM SNOMED Code(s): 569837025 Plan: 1. Continue symptomatic and supportive care 2. Dysphagia. Pured diet 3. May resume heparin 4. Patient is status post EGD 5. Continue Protonix 40 mg twice daily 6. Antireflux measures including sitting up for 1 to 2 hours post eating 7. Recommend small frequent meals 8. Outpatient follow-up with recommendation for repeat upper endoscopy in 6 to 8 weeks Thank you for this consultation, we will sign off at this time. Dr. Israel Hernandez I agree with the dictator's note, documented as a scribe by Asha Fang.
--- NOTE | 2025-05-11 15:26 | P.DS ---
Providers Date of admission: 05/07/25 03:49 Expected date of discharge: 05/11/25 Attending physician: Allison Munoz Consults: 05/09/25 15:23 Consult Physician Urgent Consulting Provider: Tenisha Hernandez Consult Reason/Comments: dysphagia ,, aspirating Do you want consulting provider notified?: Yes Primary care physician: [facility] Course: Final diagnosis Bilateral pneumonia. Chest x-ray showed bilateral lower lung opacities and right upper lobe opacity. aspiration pneumonia, present on admission Dysphagia status post EGD on 05/10/2025 with findings of distal esophageal stricture and severe reflux esophagitis status post dilatation Erosions and ulcerations in the distal esophagus consistent with LA grade C reflux esophagitis and a small hiatal hernia, biopsies obtained and pending recommend outpatient follow-up with GI for results. There is concern of retained stomach products suggestive of gastroparesis Generalized weakness, fever and chills. Likely secondary to above History of heart failure, unknown EF History of memory impairment Hyperlipidemia Hypertension Anxiety/depression DVT prophylaxis heparin subcu Obesity with a BMI of 30.0 GI prophylaxis Full code Discharge disposition Patient is being discharged in a stable condition with guarded prognosis to [facility] where she resides. Patient will follow-up with Dr. Hawley in the outpatient setting upon discharge. Patient is to continue with oral Ceftin 500 mg twice daily for the next 5 days and also recommend close outpatient follow-up with GI Dr. Hernandez in 4 to 6 weeks as scheduled. Total time taken is greater than 35 minutes. Hospital course This is a 61-year-old male who was recently admitted with bilateral pneumonia noted on imaging in the lower lung vazquez as well as right upper lobe highly suspicious for aspiration. Patient was evaluated by speech and not specifically aspirating although having esophageal dysmotility. Patient was evaluated by GI recommending EGD and there was findings of distal esophageal stricture and severe reflux esophagitis and did undergo dilatation and multiple biopsies as there was erosions and ulcerations in the distal esophagus consistent with LA grade C reflux esophagitis, small hiatal hernia and retained stomach products suggestive of gastroparesis. Patient to continue with Protonix twice daily and also nausea meds as needed and continue with dysphagia pured diet and aspiration precautions. Patient will continue oral Ceftin for the next 5 days to complete the course. Patient to follow-up with GI in the outpatient setting for test results and repeat imaging in the next few weeks. Patient does have a guardian and will be returning to [facility] where she resides. Given patient's clinical comorbidities and overall quality of life, would consider discussing CODE STATUS. Patient remains full code at this time. Patient has been cleared and will be returning to [facility] today. Please refer to other consultation no aaron for further HPI. Currently no reports of chest pain, shortness of breath, or palpitations. Patient is afebrile. Patient continues to have intermittent nausea with not much of an appetite, no vomiting noted.. Patient will be going to [facility] today. High risk for readmissions given significant comorbidities and ongoing dysphagia. Patient is at high risk for aspiration. Recommend had elevated 30 to 5 to 45 degrees at all times and supervision with meals. Physical exam: Gen: This is a 74-year-old female who is awake, alert and oriented x 2, baseline, well-developed, elderly appearing, delayed, obese, chronically ill- appearing HEENT: Head is atraumatic, normocephalic. Pupils equal, round. Sclerae is anicteric. NECK: Supple. No JVD. No lymphadenopathy. No thyromegaly. LUNGS: Diminished breath sounds bilaterally otherwise clear to auscultation. No wheezes or rhonchi. No intercostal retractions. HEART: S1, S2 are muffled ABDOMEN: Soft. Nontender bowel sounds are present. No masses. No tenderness. EXTREMITIES: No pedal edema. No calf tenderness. NEUROLOGICAL: Patient is awake, alert and oriented x 2. Cranial nerves 2 through 12 are grossly intact. Diffusely weak and mostly bedbound Please refer to medication reconciliation sheet for a list of medications. The impression and plan of care has been dictated by Helen Natarajan, Nurse Practitioner as directed. Dr. Alberto MD I have performed a history and examination and MDM of this patient, discussed the same with the dictator, and agree with the dictator's assessment and plan as written ,documented as a scribe. Based on total visit time, I have performed more than 50% of the visit. Patient Condition at Discharge: Fair Plan - Discharge Summary Discharge Rx Participant: Yes New Discharge Prescriptions: New Ipratropium-Albuterol Nebulize [Duoneb 0.5 mg-3 mg/3 ml Soln] 3 ml INHALATION RT-Q4H PRN each PRN Reason: shortness of breath Heparin Sodium,Porcine (1 ml) [Heparin Sodium] 5,000 unit SQ Q8HR each Ondansetron Odt [Zofran Odt] 4 mg PO Q8HR PRN #20 tab PRN Reason: Nausea Pantoprazole Sodium [Protonix] 40 mg PO BID #60 tab cefuroxime axetiL [Ceftin] 500 mg PO BID 5 Days #10 tab Continue Calcium Carbonate [Calcium] 600 mg PO DAILY@1700 Atorvastatin Calcium [Lipitor] 10 mg PO DAILY@1700 polyethylene glycoL 3350 [Miralax] 17 gm PO DAILY PRN PRN Reason: Constipation Cholecalciferol [Vitamin D3 (125 Mcg = 5000 Iu)] 125 mcg PO DAILY@1700 Na Phos,M-B/Na Phos,Di-Ba [Fleet Adult] 133 ml RECTAL DAILY PRN PRN Reason: Constipation Metoprolol Tartrate [Lopressor] 25 mg PO TID@0800,1400,2100 Melatonin 5 mg PO HS@2100 Magnesium Hydroxide [Milk of Magnesia Concentrate] 7,200 mg PO DAILY PRN PRN Reason: Constipation OLANZapine 20 mg PO HS@1700 Docusate [Colace] 100 mg PO BID@0800,1700 Ibuprofen [Motrin Ib] 40 mg PO Q6H PRN PRN Reason: mild pain/fever Furosemide [Lasix] 40 mg PO DAILY@0800 bisacodyL [Dulcolax] 10 mg RECTAL DAILY PRN PRN Reason: Constipation Acetaminophen [Tylenol 8 Hour] 650 mg PO Q4H PRN PRN Reason: general discomfort/fever Discharge Medication List Calcium Carbonate [Calcium] 600 mg PO DAILY@1700 10/06/17 [History] Atorvastatin Calcium [Lipitor] 10 mg PO DAILY@1700 06/17/18 [History] Cholecalciferol [Vitamin D3 (125 Mcg = 5000 Iu)] 125 mcg PO DAILY@1700 03/31/22 [History] Docusate [Colace] 100 mg PO BID@0800,1700 03/31/22 [History] OLANZapine 20 mg PO HS@1700 03/31/22 [History] polyethylene glycoL 3350 [Miralax] 17 gm PO DAILY PRN 03/31/22 [History] Acetaminophen [Tylenol 8 Hour] 650 mg PO Q4H PRN 05/07/25 [History] Furosemide [Lasix] 40 mg PO DAILY@0800 05/07/25 [History] Ibuprofen [Motrin Ib] 40 mg PO Q6H PRN 05/07/25 [History] Magnesium Hydroxide [Milk of Magnesia Concentrate] 7,200 mg PO DAILY PRN 05/07/25 [History] Melatonin 5 mg PO HS@2100 05/07/25 [History] Metoprolol Tartrate [Lopressor] 25 mg PO TID@0800,1400,2100 05/07/25 [History] Na Phos,M-B/Na Phos,Di-Ba [Fleet Adult] 133 ml RECTAL DAILY PRN 05/07/25 [History] bisacodyL [Dulcolax] 10 mg RECTAL DAILY PRN 05/07/25 [History] Heparin Sodium,Porcine (1 ml) [Heparin Sodium] 5,000 unit SQ Q8HR each 05/11/25 [Rx] Ipratropium-Albuterol Nebulize [Duoneb 0.5 mg-3 mg/3 ml Soln] 3 ml INHALATION RT-Q4H PRN each 05/11/25 [Rx] Ondansetron Odt [Zofran Odt] 4 mg PO Q8HR PRN #20 tab 05/11/25 [Rx] Pantoprazole Sodium [Protonix] 40 mg PO BID #60 tab 05/11/25 [Rx] cefuroxime axetiL [Ceftin] 500 mg PO BID 5 Days #10 tab 05/11/25 [Rx] Follow up Appointment(s)/Referral(s): Ignacio Hawley DO [Primary Care Provider] - 1-2 days Tenisha Hernandez MD [STAFF PHYSICIAN] - 4 Weeks (4 to 6 weeks follow-up for repeat evaluation and possible EGD) Patient Instructions/Handouts: Fever in Children (ED) Activity/Diet/Wound Care/Special Instructions: Patient is going to [place] Activity as tolerated Continue on dysphagia level 1 diet pured with aspiration precautions, nectar thickened liquids, one-to-one supervision and would recommend head of the bed elevated 35 to 45 degrees at all times Patient to continue on 5 more days of antibiotics Recommend outpatient follow-up with GI Discharge Disposition: TRANSFER TO SNF/ECF
[2025-05-11 16:14] VITALS: BP 137/81; PULSE 90; TEMP 98.4
== END 2025-05-11 18:36 | DRG 178 ==
LOC: EC 02:31 → 4SSUR 03:49
PROVIDERS: ADMIT Hospitalist; ATTEND Hospitalist
PROC: 0D758ZZ Dilation of Esophagus, Via Natural or Artificial Opening Endoscopic (ICD-10-PCS; 2025-05-10)
PROC: 0DB58ZX Excision of Esophagus, Via Natural or Artificial Opening Endoscopic, Diagnostic (ICD-10-PCS; principal; 2025-05-10 07:30)
DX: J69.0 Pneumonitis due to inhalation of food and vomit (principal); F03.93 Unspecified dementia, unspecified severity, with mood disturbance; K22.10 Ulcer of esophagus without bleeding; I11.0 Hypertensive heart disease with heart failure; I50.9 Heart failure, unspecified; F10.20 Alcohol dependence, uncomplicated; E66.9 Obesity, unspecified; F32.A Depression, unspecified; D64.9 Anemia, unspecified; F03.94 Unspecified dementia, unspecified severity, with anxiety; N17.9 Acute kidney failure, unspecified; K22.2 Esophageal obstruction; Z68.30 Body mass index [BMI] 30.0-30.9, adult; E78.5 Hyperlipidemia, unspecified; K44.9 Diaphragmatic hernia without obstruction or gangrene; K21.00 Gastro-esophageal reflux disease with esophagitis, without bleeding; K22.4 Dyskinesia of esophagus; H91.90 Unspecified hearing loss, unspecified ear; K31.84 Gastroparesis; Z79.899 Other long term (current) drug therapy; Z74.01 Bed confinement status; E83.42 Hypomagnesemia; F17.200 Nicotine dependence, unspecified, uncomplicated
CPT/HCPCS: 36415; 43239; 71045; 74019; 74230; 80048; 80053; 81001; 83605; 83735; 84100; 84145; 85025; 87040; 87449; 87636; 88305; 88313; 96361; 96365; 96366; 96367; 96372; 96375; 99285